=== PATIENT | male | born 1940 | race Caucasian/White ===

== ENCOUNTER → 2020-04-27 | Outpatient (BNVA) | payer MEDICARE, SELFPAY | PROVIDERS: PCP Internal Medicine; Visit Provider Hospitalist | DX: J84.9 Interstitial pulmonary disease, unspecified (principal); J96.11 Chronic respiratory failure with hypoxia; E03.9 Hypothyroidism, unspecified | CPT/HCPCS: 94618; 99212 ==

== ENCOUNTER → 2020-06-28 14:03 | Outpatient (BNVA) | payer MEDICARE, SELFPAY | PROVIDERS: PCP Internal Medicine; Visit Provider Hospitalist | DX: J84.9 Interstitial pulmonary disease, unspecified (principal); J96.11 Chronic respiratory failure with hypoxia; J84.112 Idiopathic pulmonary fibrosis | CPT/HCPCS: 99212 ==

== ENCOUNTER → 2020-08-26 14:07 | Outpatient (BNVA) | payer MEDICARE, SELFPAY | PROVIDERS: PCP Internal Medicine; Visit Provider Hospitalist | DX: J84.9 Interstitial pulmonary disease, unspecified (principal); J84.112 Idiopathic pulmonary fibrosis; J96.11 Chronic respiratory failure with hypoxia | CPT/HCPCS: 99212 ==

== ENCOUNTER 2020-09-27 12:52 | Outpatient (REF) | payer MEDICARE, SELFPAY ==
--- NOTE | ~2020-09-27 | CT_ITS ---
EXAMINATION: CT CHEST WITHOUT CONTRAST CLINICAL INFORMATION: 8 hepatic pulmonary fibrosis COMPARISON: Previous chest CT scans August and December 2019 TECHNIQUE: Multidetector volumetric CT imaging of the chest was done. Axial MIP volume rendering provided. Sagittal and coronal reformatted images were obtained. This CT examination was performed using dose optimization techniques as appropriate, variously including the following: *Automated exposure control *Adjustment of mA and/or kV according to patient size (this includes techniques or standardized protocols for targeted exams where dose is matched to indication/reason for exam; i.e. extremities or head) *Use of iterative reconstruction technique DLP: 298 mGy-cm FINDINGS: INSTRUCTOR BUSINESS EDUCATION: Low lung volumes and increased interstitial markings LUNGS: The lung volumes are low. There is evidence of interstitial lung disease with increased reticulation, interlobular septal thickening, increased parenchymal attenuation and traction bronchiolectasis. This is seen both centrally and peripherally and diffusely throughout the lungs. This does not appear appreciably changed from previous exams. No honeycombing is seen. No pulmonary nodule is seen. MEDIASTINUM: There are small mediastinal lymph nodes that are stable. The heart is upper normal in size. There is mild coronary artery calcification. The thoracic aorta is normal in caliber. The pulmonary arteries are prominent, main pulmonary artery measuring 3.2 cm. There is no pericardial effusion. PLEURA: There is no pleural effusion. No pleural mass or thickening. AXILLA: No lymphadenopathy. UPPER ABDOMEN: The gallbladder has been removed. OSSEOUS STRUCTURES: There are degenerative changes of the spine. CT/CT chest wo con IMPRESSION: No change in interstitial lung disease from previous exams. Coronary artery calcification. Stable small mediastinal lymph nodes. Prominent pulmonary arteries.
== END 2020-09-27 12:53 | disposition home or self-care (01) ==
LOC: HO.CT 12:52
PROVIDERS: Visit Provider Hospitalist
DX: J84.112 Idiopathic pulmonary fibrosis (principal); J96.11 Chronic respiratory failure with hypoxia; J84.9 Interstitial pulmonary disease, unspecified
CPT/HCPCS: 71250

== ENCOUNTER 2020-10-18 15:04 | Outpatient (REF) | payer MEDICARE, SELFPAY ==
[2020-10-18 15:36] LABS: PLT CLUMP 1; SCAN SMEAR FLAG 1
[2020-10-18 15:38] LABS: Basophils Percent Auto 0.1 % (0-2); Eosinophils Percent Auto 0.2 % (0-4); Hematocrit 44.6 % (42-52); Hemoglobin 14.7 g/dl (14.0-18.0); Imm Gran Abs Auto 0.09 X10*3/uL (0.00-0.03); Imm Gran Pct Auto 0.9 % (0.0-0.4); Lymphocytes Absolute Auto 0.9 X10*3/uL (1.2-4.9); Mean Corpuscular Hemoglobin 31.1 pg (27.0-33.0); Mean Corpuscular Volume 94.3 fL (80-98); Mean Platelet Volume 8.9 fL (9.4-12.4); Monocytes Absolute Auto 0.6 X10*3/uL (0.1-1.2); Monocytes Percent Auto 6.1 % (2-11); Neutrophils Absolute Auto 8.4 X10*3/uL (2.0-8.3); Neutrophils Percent Auto 83.7 % (45-73); Platelet Count 157 X10*3/uL (160-400); Red Blood Count 4.73 X10*6/uL (4.60-5.80)
[2020-10-18 15:42] LABS: MANUAL DIFF FLAG NO
[2020-10-18 16:11] LABS: Alanine Aminotransferase 42 U/L (0-40); Alkaline Phosphatase 80 U/L (39-117); Anion Gap 11 (12-20); Aspartate Amino Transferase 16 U/L (5-37); Bilirubin Direct 0.3 mg/dL (0.0-0.5); Bilirubin Total 0.9 mg/dL (0.0-1.0); Blood Urea Nitrogen 20 mg/dL (9-16); Calcium 9.3 mg/dL (8.4-10.2); Carbon Dioxide 29 mmol/L (22-29); Chloride 103 mmol/L (96-108); Estimated Glomerular Filt Rate > 60; Glucose Random 115 mg/dL (60-115); Potassium 4.3 mmol/L (3.3-5.1); Sodium 139 mmol/L (135-145); Total Protein 6.5 g/dL (6.5-8.0)
[2020-10-18 17:51] LABS: Erythrocyte Sedimentation Rate 5 MM/HR (0-15)
== END 2020-10-18 15:05 | disposition home or self-care (01) ==
LOC: HO.LAB 15:04
PROVIDERS: PCP Internal Medicine; Visit Provider Hospitalist
DX: J84.112 Idiopathic pulmonary fibrosis (principal); J96.11 Chronic respiratory failure with hypoxia; J84.9 Interstitial pulmonary disease, unspecified
CPT/HCPCS: 36415; 80048; 80076; 85025; 85652

== ENCOUNTER → 2020-10-28 13:32 | Outpatient (BNVA) | payer MEDICARE, SELFPAY | PROVIDERS: PCP Internal Medicine; Visit Provider Hospitalist | DX: J84.112 Idiopathic pulmonary fibrosis (principal); J96.11 Chronic respiratory failure with hypoxia; J84.9 Interstitial pulmonary disease, unspecified | CPT/HCPCS: 99212 ==

== ENCOUNTER → 2021-01-04 15:25 | Outpatient (BNVA) | payer MEDICARE, SELFPAY | PROVIDERS: PCP Internal Medicine; Visit Provider Hospitalist | DX: J06.9 Acute upper respiratory infection, unspecified (principal); J84.112 Idiopathic pulmonary fibrosis; J96.10 Chronic respiratory failure, unspecified whether with hypoxia or hypercapnia; J84.9 Interstitial pulmonary disease, unspecified; D84.821 Immunodeficiency due to drugs; T38.0X5A Adverse effect of glucocorticoids and synthetic analogues, initial encounter; Y92.9 Unspecified place or not applicable; I10 Essential (primary) hypertension; E03.9 Hypothyroidism, unspecified; Z88.1 Allergy status to other antibiotic agents; Z88.5 Allergy status to narcotic agent; Z88.0 Allergy status to penicillin; Z79.52 Long term (current) use of systemic steroids; Z79.899 Other long term (current) drug therapy | CPT/HCPCS: 99212 ==

== ENCOUNTER 2021-02-01 14:19 | Outpatient (REF) | payer MEDICARE, SELFPAY ==
[2021-02-01 15:22] LABS: MANUAL DIFF FLAG NO
[2021-02-01 15:36] LABS: Basophils Percent Auto 0.1 % (0-2); Eosinophils Percent Auto 0.3 % (0-4); Hematocrit 39.5 % (42-52); Hemoglobin 13.1 g/dl (14.0-18.0); Imm Gran Abs Auto 0.05 X10*3/uL (0.00-0.03); Imm Gran Pct Auto 0.7 % (0.0-0.4); Lymphocytes Absolute Auto 0.8 X10*3/uL (1.2-4.9); Lymphocytes Percent Auto 10.6 % (20-40); Mean Corpuscular HGB Conc 33.2 g/dl (31.0-36.0); Mean Corpuscular Hemoglobin 32.1 pg (27.0-33.0); Mean Corpuscular Volume 96.8 fL (80-98); Mean Platelet Volume 9.1 fL (9.4-12.4); Monocytes Absolute Auto 0.5 X10*3/uL (0.1-1.2); Monocytes Percent Auto 6.9 % (2-11); Neutrophils Absolute Auto 6.1 X10*3/uL (2.0-8.3); Neutrophils Percent Auto 81.4 % (45-73); Platelet Count 150 X10*3/uL (160-400); Red Blood Count 4.08 X10*6/uL (4.60-5.80); Red Cell Distribution Width 14.6 % (11.0-16.0); White Blood Count 7.5 X10*3/uL (4.8-10.8)
[2021-02-01 16:09] LABS: Alanine Aminotransferase 39 U/L (0-40); Albumin Level 4.1 g/dL (3.5-5.0); Alkaline Phosphatase 61 U/L (39-117); Anion Gap 16 (12-20); Aspartate Amino Transferase 21 U/L (5-37); Bilirubin Direct 0.4 mg/dL (0.0-0.5); Bilirubin Total 0.8 mg/dL (0.0-1.0); Blood Urea Nitrogen 12 mg/dL (9-16); Calcium 9.1 mg/dL (8.4-10.2); Carbon Dioxide 24 mmol/L (22-29); Chloride 104 mmol/L (96-108); Estimated Glomerular Filt Rate > 60; Glucose Random 105 mg/dL (60-115); Potassium 4.2 mmol/L (3.3-5.1); Sodium 140 mmol/L (135-145); Total Protein 6.4 g/dL (6.5-8.0)
[2021-02-01 16:32] LABS: Erythrocyte Sedimentation Rate 7 MM/HR (0-15)
[2021-02-02 04:35] LABS: SARS COV2 IgG Negative (Negative)
== END 2021-02-01 14:20 | disposition home or self-care (01) ==
LOC: HO.LAB 14:19
PROVIDERS: PCP Internal Medicine; Visit Provider Hospitalist
DX: Z20.822 Contact with and (suspected) exposure to COVID-19 (principal); D84.821 Immunodeficiency due to drugs; J84.112 Idiopathic pulmonary fibrosis; J84.9 Interstitial pulmonary disease, unspecified; J96.11 Chronic respiratory failure with hypoxia; T38.0X5A Adverse effect of glucocorticoids and synthetic analogues, initial encounter; Z79.52 Long term (current) use of systemic steroids
CPT/HCPCS: 36415; 80048; 80076; 85025; 85652; 86769

== ENCOUNTER → 2021-02-03 14:30 | Outpatient (BNVA) | payer MEDICARE, SELFPAY | PROVIDERS: PCP Internal Medicine; Visit Provider Internal Medicine | DX: J84.112 Idiopathic pulmonary fibrosis (principal); J84.9 Interstitial pulmonary disease, unspecified; D84.821 Immunodeficiency due to drugs; T38.0X5A Adverse effect of glucocorticoids and synthetic analogues, initial encounter; J96.11 Chronic respiratory failure with hypoxia; Z79.52 Long term (current) use of systemic steroids | CPT/HCPCS: 99212 ==

== ENCOUNTER 2021-02-11 14:26 | Outpatient (REF) | payer MEDICARE, SELFPAY | END 2021-02-11 14:27 | disposition home or self-care (01) | LOC: HO.LAB 14:26 | PROVIDERS: PCP Internal Medicine; Visit Provider Hospitalist | DX: Z01.84 Encounter for antibody response examination (principal); D84.821 Immunodeficiency due to drugs; J84.9 Interstitial pulmonary disease, unspecified; T38.0X5A Adverse effect of glucocorticoids and synthetic analogues, initial encounter; Z79.52 Long term (current) use of systemic steroids | CPT/HCPCS: 36415; 86769 ==

== ENCOUNTER 2021-03-28 15:37 | Outpatient (REF) | payer MEDICARE, SELFPAY ==
--- NOTE | ~2021-03-28 | XR_ITS ---
EXAMINATION: XR CHEST CLINICAL INFORMATION: Interstitial pulmonary disease COMPARISON: Previous chest CT scans most recent August 2020 TECHNIQUE: 2 views of the chest were obtained. FINDINGS: The cardiac silhouette appears enlarged but stable. Hilar and mediastinal contours are unremarkable. The lung volumes are low. There are increased interstitial markings suggestive of interstitial lung disease, greatest in the right upper lung and left lower lung. Appears unchanged. There is question of a 9 mm right upper lobe nodule and adjacent pleural thickening. This is similar to topogram from chest CT scan. Review of chest CT shows no nodule is seen and apparent nodular density may represent overlapping areas of increased peripheral parenchymal attenuation. There is no pleural effusion or pneumothorax. There are degenerative changes of the spine. XR/XR chest 2V IMPRESSION: Low lung volumes and interstitial lung disease. This does not appear changed from most recent chest CT August 2020.
== END 2021-03-28 15:38 | disposition home or self-care (01) ==
LOC: HO.XRAY 15:37
PROVIDERS: PCP Internal Medicine; Visit Provider Hospitalist
DX: J84.9 Interstitial pulmonary disease, unspecified (principal)
CPT/HCPCS: 71046

== ENCOUNTER → 2021-03-29 13:08 | Outpatient (BNVA) | payer MEDICARE, SELFPAY | PROVIDERS: PCP Internal Medicine; Visit Provider Hospitalist | DX: J84.9 Interstitial pulmonary disease, unspecified (principal); J84.112 Idiopathic pulmonary fibrosis; J96.11 Chronic respiratory failure with hypoxia; D84.821 Immunodeficiency due to drugs; T38.0X5A Adverse effect of glucocorticoids and synthetic analogues, initial encounter; Z79.52 Long term (current) use of systemic steroids | CPT/HCPCS: 99212 ==

== ENCOUNTER → 2021-04-26 13:56 | Outpatient (BNVA) | payer MEDICARE, SELFPAY | PROVIDERS: PCP Internal Medicine; Visit Provider Hospitalist | DX: J84.9 Interstitial pulmonary disease, unspecified (principal); J84.112 Idiopathic pulmonary fibrosis; J96.10 Chronic respiratory failure, unspecified whether with hypoxia or hypercapnia; I48.91 Unspecified atrial fibrillation; I10 Essential (primary) hypertension; E03.9 Hypothyroidism, unspecified; R53.83 Other fatigue; G47.33 Obstructive sleep apnea (adult) (pediatric); D84.821 Immunodeficiency due to drugs; T38.0X5A Adverse effect of glucocorticoids and synthetic analogues, initial encounter; Z88.6 Allergy status to analgesic agent; Z88.1 Allergy status to other antibiotic agents; Z88.0 Allergy status to penicillin | CPT/HCPCS: 99212 ==

== ENCOUNTER → 2021-07-03 19:35 | Outpatient (REF) | payer MEDICARE, SELFPAY | LOC: HO.SL 19:35 | PROVIDERS: Visit Provider Hospitalist | DX: G47.33 Obstructive sleep apnea (adult) (pediatric) (principal); I48.91 Unspecified atrial fibrillation | CPT/HCPCS: 95810 ==

== ENCOUNTER 2021-07-04 13:56 | Outpatient (REF) | payer MEDICARE, SELFPAY ==
[2021-07-04 15:04] LABS: MANUAL DIFF FLAG NO
[2021-07-04 15:11] LABS: Basophils Percent Auto 0.2 % (0-2); Eosinophils Absolute Auto 0.1 X10*3/uL (0.0-0.4); Eosinophils Percent Auto 0.8 % (0-4); Hemoglobin 14.4 g/dl (14.0-18.0); Imm Gran Abs Auto 0.05 X10*3/uL (0.00-0.03); Imm Gran Pct Auto 0.5 % (0.0-0.4); Lymphocytes Absolute Auto 1.9 X10*3/uL (1.2-4.9); Lymphocytes Percent Auto 17.7 % (20-40); Mean Corpuscular HGB Conc 33.5 g/dl (31.0-36.0); Mean Corpuscular Hemoglobin 31.6 pg (27.0-33.0); Mean Corpuscular Volume 94.3 fL (80.0-98.0); Mean Platelet Volume 9.1 fL (9.4-12.4); Monocytes Absolute Auto 0.9 X10*3/uL (0.1-1.2); Monocytes Percent Auto 8.1 % (2-11); Neutrophils Absolute Auto 7.9 x10*3/uL (2.0-8.3); Neutrophils Percent Auto 72.7 % (45-73); Platelet Count 174 X10*3/uL (160-400); Red Blood Count 4.56 X10*6/uL (4.60-5.80); White Blood Count 10.9 X10*3/uL (4.8-10.8)
[2021-07-04 15:30] LABS: Alanine Aminotransferase 38 U/L (0-40); Albumin Level 4.1 g/dL (3.5-5.0); Alkaline Phosphatase 65 U/L (39-117); Anion Gap 11 (12-20); Aspartate Amino Transferase 20 U/L (5-37); Bilirubin Direct 0.4 mg/dL (0.0-0.5); Bilirubin Total 0.6 mg/dL (0.0-1.0); Blood Urea Nitrogen 15 mg/dL (9-16); Calcium 9.5 mg/dL (8.4-10.2); Carbon Dioxide 32 mmol/L (22-29); Chloride 103 mmol/L (96-108); Estimated Glomerular Filt Rate > 60; Glucose Random 103 mg/dL (60-115); Potassium 3.6 mmol/L (3.3-5.1); Sodium 142 mmol/L (135-145); Total Protein 6.7 g/dL (6.5-8.0)
[2021-07-04 17:18] LABS: Erythrocyte Sedimentation Rate 8 MM/HR (0-15)
[2021-07-05 05:00] LABS: SARS-COV-2 IgG Spike, Semi-Qnt >150.00 index (<1.00)
== END 2021-07-04 13:57 | disposition home or self-care (01) ==
LOC: HO.LAB 13:56
PROVIDERS: PCP Internal Medicine; Visit Provider Hospitalist
DX: J96.11 Chronic respiratory failure with hypoxia (principal); J84.9 Interstitial pulmonary disease, unspecified; J84.112 Idiopathic pulmonary fibrosis; I48.91 Unspecified atrial fibrillation; G47.33 Obstructive sleep apnea (adult) (pediatric); D84.821 Immunodeficiency due to drugs; T38.0X5A Adverse effect of glucocorticoids and synthetic analogues, initial encounter; Z79.52 Long term (current) use of systemic steroids; Z01.84 Encounter for antibody response examination
CPT/HCPCS: 36415; 80048; 80076; 85025; 85652; 86769; 99212

== ENCOUNTER → 2021-08-12 10:16 | Outpatient (BNVA) | payer MEDICARE, SELFPAY | PROVIDERS: PCP Internal Medicine; Visit Provider Hospitalist | DX: J84.112 Idiopathic pulmonary fibrosis (principal); J96.11 Chronic respiratory failure with hypoxia; J84.9 Interstitial pulmonary disease, unspecified; G47.33 Obstructive sleep apnea (adult) (pediatric); G47.61 Periodic limb movement disorder; D84.821 Immunodeficiency due to drugs; T38.0X5D Adverse effect of glucocorticoids and synthetic analogues, subsequent encounter; Z79.52 Long term (current) use of systemic steroids | CPT/HCPCS: 99212 ==

== ENCOUNTER → 2021-10-11 14:10 | Outpatient (BNVA) | payer MEDICARE, SELFPAY | PROVIDERS: PCP Internal Medicine; Visit Provider Hospitalist | DX: J44.9 Chronic obstructive pulmonary disease, unspecified (principal); J84.9 Interstitial pulmonary disease, unspecified | CPT/HCPCS: 94618; 99211 ==

== ENCOUNTER 2021-10-12 11:22 | Outpatient (REF) | payer MEDICARE, SELFPAY ==
--- NOTE | ~2021-10-12 | XR_ITS ---
EXAMINATION: XR CHEST CLINICAL INFORMATION: Pulmonary fibrosis COMPARISON: Previous chest x-rays most recent March 2021 TECHNIQUE: 2 views of the chest were obtained. FINDINGS: The cardiac silhouette is slightly enlarged but stable. Hilar and mediastinal contours are unremarkable. The lung volumes are low. There are increased interstitial markings greatest at the left lung base and right upper lung. This does not appear appreciably changed from most recent exam March 2021. There is no pleural effusion or pneumothorax. There are degenerative changes of the spine. XR/XR chest 2V IMPRESSION: Stable enlargement of the cardiac silhouette. Low lung volumes and interstitial lung disease not appreciably changed.
== END 2021-10-12 11:23 | disposition home or self-care (01) ==
LOC: HO.XRAY 11:22
PROVIDERS: PCP Internal Medicine; Visit Provider Hospitalist
DX: J84.112 Idiopathic pulmonary fibrosis (principal)
CPT/HCPCS: 71046

== ENCOUNTER 2021-12-06 14:04 | Outpatient (REF) | payer MEDICARE, SELFPAY ==
--- NOTE | ~2021-12-06 | XR_ITS ---
EXAMINATION: XR CHEST CLINICAL INFORMATION: Idiopathic pulmonary fibrosis. COMPARISON: Chest x-ray 10/12/2021 TECHNIQUE: 2 views of the chest were obtained. FINDINGS: The lungs are hypoexpanded with increased interstitial markings and left lower lobe and right upper lobe similar previous study. No new lung findings. Heart size is borderline enlarged. Pulmonary vascularity is normal.. XR/XR chest 2V IMPRESSION: Stable findings with no change in prominent interstitial lung disease right upper lobe and left lower lobe.
== END 2021-12-06 14:05 | disposition home or self-care (01) ==
LOC: HO.XRAY 14:04
PROVIDERS: PCP Internal Medicine; Visit Provider Hospitalist
DX: J84.112 Idiopathic pulmonary fibrosis (principal); I10 Essential (primary) hypertension; G47.61 Periodic limb movement disorder; D84.821 Immunodeficiency due to drugs; J96.11 Chronic respiratory failure with hypoxia; J84.9 Interstitial pulmonary disease, unspecified; G47.33 Obstructive sleep apnea (adult) (pediatric); T38.0X5A Adverse effect of glucocorticoids and synthetic analogues, initial encounter; Z79.52 Long term (current) use of systemic steroids
CPT/HCPCS: 71046; 99212

== ENCOUNTER → 2022-02-28 11:35 | Outpatient (BNVA) | payer MEDICARE, SELFPAY | PROVIDERS: PCP Internal Medicine; Visit Provider Hospitalist | DX: J44.0 Chronic obstructive pulmonary disease with (acute) lower respiratory infection (principal); D84.821 Immunodeficiency due to drugs; T38.0X5A Adverse effect of glucocorticoids and synthetic analogues, initial encounter; Z79.52 Long term (current) use of systemic steroids; J84.112 Idiopathic pulmonary fibrosis; J96.11 Chronic respiratory failure with hypoxia; J84.9 Interstitial pulmonary disease, unspecified; G47.33 Obstructive sleep apnea (adult) (pediatric); G47.61 Periodic limb movement disorder; I10 Essential (primary) hypertension; Z57.2 Occupational exposure to dust; Z99.81 Dependence on supplemental oxygen; Z79.899 Other long term (current) drug therapy | CPT/HCPCS: 99212 ==

== ENCOUNTER → 2022-06-13 13:39 | Outpatient (BNVA) | payer MEDICARE, SELFPAY | PROVIDERS: PCP Internal Medicine; Visit Provider Hospitalist | DX: Z01.811 Encounter for preprocedural respiratory examination (principal); J44.0 Chronic obstructive pulmonary disease with (acute) lower respiratory infection; J84.112 Idiopathic pulmonary fibrosis; J96.11 Chronic respiratory failure with hypoxia; D84.821 Immunodeficiency due to drugs; T38.0X5A Adverse effect of glucocorticoids and synthetic analogues, initial encounter; Z79.52 Long term (current) use of systemic steroids; G47.33 Obstructive sleep apnea (adult) (pediatric); G47.61 Periodic limb movement disorder; G47.00 Insomnia, unspecified; F32.A Depression, unspecified; Z99.81 Dependence on supplemental oxygen | CPT/HCPCS: 99212 ==

== ENCOUNTER → 2022-09-12 14:02 | Outpatient (BNVA) | payer MEDICARE, SELFPAY | PROVIDERS: PCP Internal Medicine; Visit Provider Hospitalist | DX: J44.1 Chronic obstructive pulmonary disease with (acute) exacerbation (principal); J96.11 Chronic respiratory failure with hypoxia; J84.9 Interstitial pulmonary disease, unspecified; D84.821 Immunodeficiency due to drugs; T38.0X5A Adverse effect of glucocorticoids and synthetic analogues, initial encounter; J84.112 Idiopathic pulmonary fibrosis; G47.33 Obstructive sleep apnea (adult) (pediatric); G47.61 Periodic limb movement disorder; G47.00 Insomnia, unspecified; M54.9 Dorsalgia, unspecified | CPT/HCPCS: 99212 ==

== ENCOUNTER → 2022-11-14 14:24 | Outpatient (BNVA) | payer MEDICARE, SELFPAY | PROVIDERS: PCP Internal Medicine; Visit Provider Hospitalist | DX: J44.1 Chronic obstructive pulmonary disease with (acute) exacerbation (principal); J84.112 Idiopathic pulmonary fibrosis; J96.11 Chronic respiratory failure with hypoxia; J84.9 Interstitial pulmonary disease, unspecified; G47.33 Obstructive sleep apnea (adult) (pediatric); G47.61 Periodic limb movement disorder; G47.00 Insomnia, unspecified; M54.9 Dorsalgia, unspecified; D84.821 Immunodeficiency due to drugs; T38.0X5D Adverse effect of glucocorticoids and synthetic analogues, subsequent encounter; Z79.52 Long term (current) use of systemic steroids | CPT/HCPCS: 99212 ==

== ENCOUNTER 2023-03-02 10:59 | Outpatient (AMB) | payer MEDICARE, SELFPAY ==
--- NOTE | 2023-03-02 11:22 | A.OFFVIS_ITS ---
Intake Vital Signs 03/02/23 11:25 Height 6 ft 2 in BP 118/62 Blood Pressure Location Lt brachial Position Sitting Pulse 96 Pulse Oximetry (%) 93 Oxygen Delivery Method Nasal Cannula Comment 2 Liters O2 Intake Visit Reasons: dyspnea Professor Of Biostatistics Required: No Expanding Machine Operator: Expanding Machine Operator offered & declined Accompanied by: Son Allergies Cipro Allergy (Mild, Uncoded 03/02/23 11:29) Tachycardia PCN Allergy (Mild, Uncoded 03/02/23 11:29) Hives Percocet Allergy (Mild, Uncoded 03/02/23 11:29) Hallucinations Medication List - Last Reconciled 03/02/23 by Ya Mauor LPN albuterol sulfate 2.5 mg (3 mL) inhalation BID apixaban (Eliquis) 5 mg PO BID azithromycin 500 mg PO DAILY 5 days carisoprodol 350 mg PO QID PRN diltiazem HCl ER mg PO doxycycline monohydrate 100 mg PO BID PRN doxycycline monohydrate 100 mg PO BID 14 days furosemide (Lasix) 20 mg PO DAILY 7 days gabapentin 200 mg PO BEDTIME PRN ipratropium bromide 2.5 mL inhalation BID 30 days levalbuterol HCl 1.25 mg (3 mL) inhalation BID 30 days levothyroxine 50 mcg PO DAILY lisinopril 5 mg PO DAILY metoprolol succinate ER 25 mg PO DAILY mirtazapine (Remeron) 15 mg PO BEDTIME 30 days montelukast 10 mg PO QPM mycophenolate mofetil 1,000 mg (2 x 500 mg) PO BID nebulizers As directed nintedanib (Ofev) 150 mg PO Q12H oxycodone 5 mg PO QID PRN prednisone 20 mg (2 x 10 mg) PO DAILY tamsulosin 0.4 mg PO BEDTIME trazodone 100 mg (2 x 50 mg) PO BEDTIME HPI dyspnea HPI Details Isai is a very pleasant 82 year old male followed for COPD on 3 liters supplemental oxygen, idiopathic pulmonary fibrosis, and 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 Today he presents for an acute visit. He reports increased dyspnea on exertion over the last 4-6 weeks with associated bilateral lower extremity swelling. He has been using nebulized therapy once per day with partial effect. He states he has been taking his lasix regularly and had a recent echo approximately 3 months ago. [facility] Medical History (Updated 09/12/22 @ 22:37 by Irvin Watts MD) Atrial fibrillation Back pain Chronic respiratory failure COPD (chronic obstructive pulmonary disease) Depression ILD (interstitial lung disease) Immunosuppression due to chronic steroid use Insomnia IPF (idiopathic pulmonary fibrosis) PLMD (periodic limb movement disorder) Social History (Updated 03/02/23 @ 11:36 by Ya Mauro LPN) Patient Tobacco Use Status: Never used Tobacco Smoked in Last 30 Days: No Review of Systems Const Denies chills, Denies excessive sweating, Denies fever(s), Denies headache(s) and Denies night sweats Eyes Denies dry eyes, Denies irritation and Denies itchy eyes ENT Reports Normal hearing present, Denies headache(s), Denies nasal congestion, Denies nasal discharge, Denies post nasal drip and Denies sore throat Card Denies chest pain, Denies chest pain at rest, Denies chest pain with activity, Denies claudication, Reports leg edema and Reports dyspnea on exertion Resp Denies change in phlegm color, Denies chest congestion, Reports cough, Denies hemoptysis, Denies excessive phlegm production, Denies pain on inspiration, Denies pain with cough, Reports dyspnea on exertion, Denies stridor and Denies wheezing Musc Denies myalgias Neuro Reports Normal hearing present and Denies headache(s) Endo Denies excessive sweating Devendra/Lymph Denies lymphadenopathy Aller/Immun Denies itchy eyes, Denies seasonal rhinorrhea and Denies wheezing Physical Exam Vital Signs: Last Vital Signs Pulse 96 03/02/23 11:25 BP 118/62 03/02/23 11:25 Pulse Ox 93 03/02/23 11:25 Oxygen Delivery Method Nasal Cannula 03/02/23 11:25 Const General: cooperative, comfortable, no acute distress, well developed and alert Nutritional Appearance: obese Orientation/consciousness: patient oriented x3 HEENT Head: Yes normal to inspection, Yes normocephalic and Yes atraumatic Ears: hearing grossly normal bilaterally and external ears normal Eyes General: appearance normal, both eyes and all related structures Eyelids: Yes eyelids normal Sclerae: sclerae normal EOM: EOMs intact bilaterally Neck Neck: Yes normal visual inspection and Yes no lymphadenopathy Lymphatic: no lymphadenopathy noted Chest Chest palpation & inspection: normal inspection of the chest Resp Other: inspiratory crackles d/t fibrosis Effort & Inspection: normal respiratory effort, able to speak in complete sentences, no audible wheezes, no stridor, not tachypneic, no tripod positioning and no use of accessory muscles Auscultation: diminished lung sounds Cardio Jugular venous distension: no JVD Rate: regular rate Rhythm: regular rhythm Skin Other: warm, dry General skin exam: no rashes or lesions noted Neuro General: patient oriented x3 Cranial nerves: Yes Normal hearing present Cognition (Neuro): normal cognition Gait exam (Neuro): Assisted gait required Extrem Other: 2-3+ pitting edema BLE General: Yes normal to inspection Psych Appearance: grossly normal and well kempt Speech and movement: Normal speech and movement present and Clear speech present Affect: normal affect Attitude: cooperative Thought process: Normal thought process present Thought content: Normal thought content present Insight: Good insight present (Psych) Judgement: Good judgement present (Psych) Assessment & Plan Assessment & Plan (1) COPD (chronic obstructive pulmonary disease): Code(s): J44.9 - Chronic obstructive pulmonary disease, unspecified Qualifiers: COPD type: COPD with acute exacerbation Qualified Code(s): J44.1 - Chronic obstructive pulmonary disease with (acute) exacerbation (2) Immunosuppression due to chronic steroid use: Code(s): D84.821 - Immunodeficiency due to drugs; T38.0X5A - Adverse effect of glucocorticoids and synthetic analogues, initial encounter; Z79.52 - intermediate manager (current) use of systemic steroids (3) IPF (idiopathic pulmonary fibrosis): Code(s): J84.112 - Idiopathic pulmonary fibrosis (4) Chronic respiratory failure: Code(s): J96.10 - Chronic respiratory failure, unspecified whether with hypoxia or hypercapnia Qualifiers: Respiratory failure complication: hypoxia Qualified Code(s): J96.11 - Chronic respiratory failure with hypoxia (5) KATHARINE (obstructive sleep apnea): Code(s): G47.33 - Obstructive sleep apnea (adult) (pediatric) Plan Isai's symptoms are likely multifactorial with contribution from pulmonary and cardiac etiologies. It is difficult to discern if his fibrosis is worsening so will send for chest CT as his last was two years ago. Discussed his current medication regimen. Advised to used nebulized therapy BID, as long as he tolerates. He also has 2-3+ pitting edema of bilateral lower extremities that has been more noticeable over the last few weeks, with likely CHF exacerbation contributing to symptoms. Suggested patient increase his lasix to BID for the next week to see if his symptoms improve and contact cardiology to discuss. All questions were answered and patient in agreement of plan. Will follow up with Dr. Watts in two weeks for regularly scheduled appointment. Orders: Orders CT chest wo IV con Today J84.9 - Interstitial pulmonary disease, unspecified Coding Level of Care Code Est Pt Level 4 (92599) Diagnoses COPD (chronic obstructive pulmonary disease) J44.1 COPD type: COPD with acute exacerbation Immunosuppression due to chronic steroid use D84.821; T38.0X5A; Z79.52 IPF (idiopathic pulmonary fibrosis) J84.112 Chronic respiratory failure J96.11 Respiratory failure complication: hypoxia KATHARINE (obstructive sleep apnea) G47.33
[2023-03-02 11:25] VITALS: BP 118/62; PULSE 96; O2SAT 93
== END 2023-03-02 12:03 | disposition home or self-care (01) ==
PROVIDERS: PCP Internal Medicine; Visit Provider Nurse Practitioner Family
DX: J44.1 Chronic obstructive pulmonary disease with (acute) exacerbation (principal); D84.821 Immunodeficiency due to drugs; T38.0X5A Adverse effect of glucocorticoids and synthetic analogues, initial encounter; Z79.52 Long term (current) use of systemic steroids; J84.112 Idiopathic pulmonary fibrosis; J96.11 Chronic respiratory failure with hypoxia; G47.33 Obstructive sleep apnea (adult) (pediatric)
CPT/HCPCS: 99214

== ENCOUNTER → 2023-03-02 10:59 | Outpatient (BNVA) | payer MEDICARE, SELFPAY | PROVIDERS: PCP Internal Medicine; Visit Provider Nurse Practitioner Family | DX: J44.1 Chronic obstructive pulmonary disease with (acute) exacerbation (principal); J84.112 Idiopathic pulmonary fibrosis; J96.11 Chronic respiratory failure with hypoxia; G47.33 Obstructive sleep apnea (adult) (pediatric); D84.821 Immunodeficiency due to drugs; T38.0X5D Adverse effect of glucocorticoids and synthetic analogues, subsequent encounter; Z99.81 Dependence on supplemental oxygen; Z79.52 Long term (current) use of systemic steroids | CPT/HCPCS: 99212 ==

== ENCOUNTER 2023-03-20 13:52 | Outpatient (AMB) | payer MEDICARE, SELFPAY ==
[2023-03-20 14:14] VITALS: PULSE 83; O2SAT 94; BMI 30.6
--- NOTE | 2023-03-20 14:14 | A.OFFVIS_ITS ---
Intake Vital Signs 03/20/23 14:14 Height 6 ft 2 in Weight 238 lb BMI 30.6 Pulse 83 Pulse Source Pulse Oximeter Pulse Oximetry (%) 94 Oxygen Delivery Method Room Air Comment 3 Liters Oxygen([facility]) Intake Visit Reasons: copd Allergies Cipro Allergy (Mild, Uncoded 03/20/23 14:15) Tachycardia PCN Allergy (Mild, Uncoded 03/20/23 14:15) Hives Percocet Allergy (Mild, Uncoded 03/20/23 14:15) Hallucinations HPI HPI Comments History of Present Illness Details The patient is a 82-year-old gentleman with a known history high blood pressure in addition to hypothyroidism who apparently was in his usual state health until for the last several months when he has noticed progressive sh ortness of breath. He had been going to a transition move from his house to a condominium and why he was doing that he was exposed to inorganic dust in the form of cement. In addition to that he worked at [employer] for about 20 years of his life and prior to that he worked that [employer] with significant exposures well and she could be. Ultimately he was not complaining of any respiratory symptoms. More recently with increasing shortness of breath sensation he was evaluated by Cardiology. He had a stress test that was negative for any heart involvement but did have an episode of hypoxia when he dropped to 83%. After that he did get his own oximeter and he has been checking his oxygen and appears to be maintaining around 92-94%. However, he did have a CT scan of the abdomen back in June 2018 for his underlying renal calculi it was noted that he had evidence of pulmonary fibrosis which is concerning. Therefore due to his persistent symptoms and his hypoxia and abnormal CT scan of the abdomen he was referred to Pulmonary. We did review his blood work and was all relatively negative for any evidence of any connective tissue conditions or inflammatory conditions that can result in the interstitial lung disease. He also underwent for CT scan of the chest demonstrating mainly chronic changes with reticular changes and honeycombing as well as some traction bronchiectasis. However, he also has some degree of subacute or acute pneumonitis occurring and his left lower lung zone. Seems to have responded well to the trelegy, I will send him a generic at this time. In the meantime based on the findings demonstrating mainly chronic interstitial changes I am not sure that a surgical biopsy will really oil changer at this time. It is my suspicion that he may have a component of idiopathic pulmonary fibrosis based on the fact that he has peripheral raise reticular changes with some honeycombing primarily at the bases. The area that is less consistent is this like ground-glass area in the left base but this may be a different entity altogether. Therefore treating for idiopathic pulmonary fibrosis will be reasonable at this time. Based on the findings on his CT scan I suspect that he has a component of idiopathic pulmonary fibrosis. Continue the prednisone at low dose for now. Will discuss the use of anti- fibrotic therapy during the next visit. 10/28/2020 The patient is here for a follow up visit. Overall he is doing well. He did develop sciatica and placed on 40mg Prednisone and his breathing did feel better. Therefore, we will keep him on 10mg Prednisone daily. He does tolerate the cellcept. we did review his PFTs demonstrating a moderate restriction unchanged from last year. The CT chest demonstrating the ILD, but more GGO. He has been using his oxygen with good effect. He is tolerating the OFEV well without significant side effects. 01/04/2021 the patient is here for sick visit. He started developing some nasal congestion and worsening cough the last couple weeks. Initially he noted also some increased shortness of breath and his pulse ox was lower than normal. He was using his oxygen more regularly. Denied fevers or chills. He has been coughing more lately. The cough appears to be more productive with clear to white Sputum. He did get vaccinated for COVID-19. However, he is on immunosuppression including CellCept and prednisone. Therefore, will be reasonable to check his response to vaccine by measuring the semi quantitative S protein antibioties. he denies any sick contacts. 07/04/2021 the patient is here for pulmonary follow-up visit. Overall he is doing well. Continues to have daytime drowsiness. His [place] score is elevated 06/24. He did just have the sleep study last night. Therefore I will add an addendum to this note regarding the results. Patient may benefit from PAP therapy in view of his underlying daytime drowsiness. In the meantime he does describe difficulty sleeping therefore will start a sleep aid to see if this provides relief. He continues on the prednisone that can also affect his sleep. He also continues on the mycophenolate. The 0fev has been well tolerated without significant GI symptoms at this time. He did have a problem with his Advair resulting in thrush. Symptoms are feeling better. Therefore he is no longer using it. He does describe some interval worsening of chest congestion. He is concerned about using medications specially with his underlying atrial fibrillation. He is scheduled to follow-up with his cardiolo gist sometime late July or early August. Therefore, will start the patient on nebulized therapy with anticholinergic therapy to minimize beta effect. 08/12/2021 the patient is here for a pulmonary follow-up visit. Overall he is feeling better. He did undergo sleep study demonstrating no significant sleep apnea. although, it was a very limited study he had a hard time sleeping. He slept a total about 3 hours. He did have some REM sleep at the end. This is a sub optimal study. However, does not appear to have any significant sleep apnea based on those 3 hours left. More significant was to his degree of periodic limb movements. Explained to the patient that this was very significant during the study and is likely contributing to his poor sleep.The patient does need to uses oxygen. He is feeling better overall from a daytime drowsiness. His [place] score is better it over 24 was issue reassuring. The patient needs to work on good sleep hygiene in order to improve his overall daytime wakefulness. He continues uses oxygen with good effect. He continues to exercise. I did encourage him to go back to some type of rehabilitation. He can consider online programs. Patient is to monitor closely his weight. He continues on the anti fibrotic agent and also on the immunomodulator therapy with good response at this time. He is scheduled to undergo a cardioversion soon. The patient will be placed on flecainide. I encouraged him and reassured him that this is a good safe medicine. Clinically the patient is doing very well and should be able to tolerate the planned procedure without any pulmonary issues. 06/13/2022 the patient is here for a pulmonary follow-up visit. He is here with his son. Since we last spoke he has been having excruciating back pain. Radiation stone the legs. he did undergo an MRI of the lumbar spine demonstrating significant compression fractures in addition to moderate to severe spinal stenosis. The patient was recommended to follow up with surgery. This has caused him to be depressed. He is also having issues with insomnia. Initially because the back pain he tried gabapentin but it resulted in increased swelling and weight gain so therefore he stopped it. The swelling improved once he stop the medication. I did recommend can try small dose of Remeron. In the meantime continues to be fairly stable from respiratory status. The patient does have a moderate restriction due to his interstitial lung disease. But based on his repeat pulmonary function studies no significant change. He does have moderate restriction with a moderate diffusion impairment as well. The patient does use oxygen with activity. Typically can be okay without oxygen when he is resting. If the patient does need surgery and he likely will he does have increased risk for perioperative pulmonary complications which include for the hypoxia, atelectasis, pneumonia and prolonged mechanical ventilation. At this point the patient is medically optimized from a pulmonary standpoint. I do believe that although the patient may be high risk if this condition is left on treated it can worsen further. Therefore, will follow-up with more surgery and have that further discussion about potential surgical interventions. 09/12/2022 the patient is here for a pulmonary follow-up visit. He is here with his son. His back pain has been getting a little better P which is reassuring. He did follow-up with Neurosurgery and did not recommend surgery and went home because they did not feel that it would provide significant improvement and not worked risk. Therefore his continue with physical therapy and he has had some improvement. He may have to see a pain specialist to see about other alternative therapies for pain control. In the meantime from a respiratory status the patient had been doing well. Continues with his current medications further interstitial lung disease with adequate effect. Recently his was admitted to the hospital with human metapneumovirus and other complications. He is concerned because now he has been exposed to this virus. On examination he does have increased wheezing he has been coughing some. Therefore will go ahead and keep him on the prednisone and also start him on nebulized therapy to see if we can provide some relief. If the patient needs to increase the prednisone he can do so. In also placement antibiotics to avoid a postviral bacterial infection. The patient is also having issues with his atrial fibrillation worse now back with rapid ventricular response to some degree. He is considering cardioversion again. The patient is aware that that is okay once he heals from his ongoing respiratory issue. The patient is aware that he should avoid amiodarone as an antiarrhythmic agent and he can consider other agents. 11/14/2022 the patient is here for a pulmonary follow-up visit. He is grieving the loss of his . He has lost a good amount of weight. He has had some lower extremity edema. He still atrial fibrillation. The patient was being evaluated by Cardiology regarding possibility cardioversion. But 1st, he is going to have a echocardiogram and also more diuresis. He continues on the CellCept with good response. He is also on the Ofev. No significant adverse effects. He is using his respiratory therapy. He had called and we had prescribed some doxycycline for a lower respiratory infection. The patient is getting better although he still having some wheezing. We did provide him ipratropium nebulized solution addition to Xopenex in order for him to provide bronchodilation with less irritation to his cardiac issues. The patient has stopped using it because he was losing his voice. I did request that he can start using it daily because he does have some wheezing on exam. If the patient is no better if she gets worse she is to call the office for further recommendations. 03/20/2023 the patient is here for a pulmonary follow-up visit. Overall he is doing well from a respiratory status. He continues uses oxygen with good effect. He is able to take a break during the daytime. We did talk about maintaining the oxygen between 92 and 96%. Sometimes he less ago a little higher in explained to him that his body does better when he maintains it around the mid 90s. The patient has been continue his anti fibrotic therapy and immunomodulator therapy with good response. His cardiac condition appears to be a more stable. He has back pain also more stable. Now he has a motor wheelchair that does help him move around. He is also participating in some degree of pulmonary rehabilitation which is reassuring. It appears that the pulmonary fibrosis is stable and not significantly progressing. Plan to follow- up in the spring with pulmonary function studies. Also to note he has been using the nebulizer machine. Although he has been noticing some hoarseness and raspiness of his voice. He denies any significant wheezing any longer. Therefore we can just use the breathing treatments as needed. [facility] Medical History (Updated 03/20/23 @ 23:10 by Irvin Watts MD) Back pain Depression Insomnia PLMD (periodic limb movement disorder) COPD (chronic obstructive pulmonary disease) Atrial fibrillation Immunosuppression due to chronic steroid use IPF (idiopathic pulmonary fibrosis) Chronic respiratory failure ILD (interstitial lung disease) Social History (Updated 03/02/23 @ 11:36 by Ya Mauro LPN) Patient Tobacco Use Status: Never used Tobacco Review of Systems Const Reports difficulty sleeping, Denies fever(s) and Denies night sweats ENT Denies change in voice, Denies lip swelling, Denies mouth pain, Reports nasal congestion, Reports nasal discharge and Denies tongue swelling Card Denies chest pain and Reports dyspnea on exertion Resp Denies change in phlegm color, Denies chest congestion, Reports cough, Reports dyspnea on exertion and Denies wheezing GI Denies abdominal pain Musc Reports back pain and Reports radiating pain into limb Neuro Denies Neuro-related abnormal movements and Reports radicular pain Psych Reports as per HPI, Reports anxiety and Reports depression Devendra/Lymph Denies easy bleeding and Denies lymphadenopathy Aller/Immun Denies lip swelling, Denies tongue swelling and Denies wheezing Physical Exam Vital Signs: Last Vital Signs Pulse 83 03/20/23 14:14 Pulse Ox 94 03/20/23 14:14 Oxygen Delivery Method Room Air 03/20/23 14:14 BMI result Body Mass Index 30.6 Const General: alert Neck Neck: Yes normal visual inspection, Yes full ROM and Yes no lymphadenopathy Chest Chest palpation & inspection: normal inspection of the chest Resp Auscultation: rales bilateral at the base, no wheezes and diminished lung sounds Cardio Rate: regular rate Rhythm: regular rhythm Heart sounds: S1 normal heart sound present and S2 normal heart sound present GI Palpation (GI): Soft to palpation and nontender Auscultation: normal bowel sounds Skin General skin exam: rashes and/or lesions noted Assessment & Plan Assessment & Plan (1) COPD (chronic obstructive pulmonary disease): Code(s): J44.9 - Chronic obstructive pulmonary disease, unspecified Qualifiers: COPD type: COPD with acute exacerbation Qualified Code(s): J44.1 - Chronic obstructive pulmonary disease with (acute) exacerbation (2) Immunosuppression due to chronic steroid use: Code(s): D84.821 - Immunodeficiency due to drugs; T38.0X5A - Adverse effect of glucocort icoids and synthetic analogues, initial encounter; Z79.52 - prison (current) use of systemic steroids (3) IPF (idiopathic pulmonary fibrosis): Code(s): J84.112 - Idiopathic pulmonary fibrosis (4) Chronic respiratory failure: Code(s): J96.10 - Chronic respiratory failure, unspecified whether with hypoxia or hyp ercapnia Qualifiers: Respiratory failure complication: hypoxia Qualified Code(s): J96.11 - Chronic respiratory failure with hypoxia (5) ILD (interstitial lung disease): Comment: probable idiopathic pulmonary fibrosis. Currently being treated for the possibility of chronic hyper sensitivity pneumonitis. Appears to have a progressive process Code(s): J84.9 - Interstitial pulmonary disease, unspecified (6) KATHARINE (obstructive sleep apnea): Code(s): G47.33 - Obstructive sleep apnea (adult) (pediatric) (7) PLMD (periodic limb movement disorder): Comment: Based on recent sleep study Code(s): G47.61 - Periodic limb movement disorder (8) Insomnia: Code(s): G47.00 - Insomnia, unspecified Qualifiers: Insomnia type: primary Qualified Code(s): F51.01 - Primary insomnia (9) Back pain: Code(s): M54.9 - Dorsalgia, unspecified Qualifiers: Back pain location: back pain in unspecified location Back pain laterality: unspecified Chronicity: chronic Qualified Code(s): M54.9 - Dorsalgia, unspecified; G89.29 - Other chronic pain Plan Continue prednisone 10 mg daily, increase if no better continue Ipratropium nebs BID, 1-2 times a day as needed continue Xopenex BID as needed NANCY as needed Continue oxygen supplementation continue Mycophenalate continue OFEV Had recommeded Remeron in the past, but now on ropinerole PFTs Follow-up in 4-6 months Orders: Orders PFT pulmonary function test 6 Months J84.112 - Idiopathic pulmonary fibrosis Coding Level of Care Code Est Pt Level 4 (45948) Diagnoses Chronic obstructive pulmonary disease with acute exacerbation J44.1 COPD type: COPD with acute exacerbation Immunosuppression due to chronic steroid use D84.821; T38.0X5A; Z79.52 IPF (idiopathic pulmonary fibrosis) J84.112 Chronic respiratory failure with hypoxia J96.11 Respiratory failure complication: hypoxia ILD (interstitial lung disease) J84.9 KATHARINE (obstructive sleep apnea) G47.33 PLMD (periodic limb movement disorder) G47.61 Primary insomnia F51.01 Insomnia type: primary Chronic back pain, unspecified back location, unspecified back pain laterality M54.9; G89.29 Back pain location: back pain in unspecified location Back pain laterality: unspecified Chronicity: chronic Time Spent (min) 18
== END 2023-03-20 14:24 | disposition home or self-care (01) ==
PROVIDERS: PCP Internal Medicine; Visit Provider Hospitalist
DX: J44.1 Chronic obstructive pulmonary disease with (acute) exacerbation (principal); D84.821 Immunodeficiency due to drugs; T38.0X5A Adverse effect of glucocorticoids and synthetic analogues, initial encounter; Z79.52 Long term (current) use of systemic steroids; J84.112 Idiopathic pulmonary fibrosis; J96.11 Chronic respiratory failure with hypoxia; J84.9 Interstitial pulmonary disease, unspecified; G47.33 Obstructive sleep apnea (adult) (pediatric); G47.61 Periodic limb movement disorder; F51.01 Primary insomnia; M54.9 Dorsalgia, unspecified; G89.29 Other chronic pain
CPT/HCPCS: 99214

== ENCOUNTER → 2023-03-20 13:52 | Outpatient (BNVA) | payer MEDICARE, SELFPAY | PROVIDERS: PCP Internal Medicine; Visit Provider Hospitalist | DX: J44.1 Chronic obstructive pulmonary disease with (acute) exacerbation (principal); J84.112 Idiopathic pulmonary fibrosis; J96.11 Chronic respiratory failure with hypoxia; J84.9 Interstitial pulmonary disease, unspecified; G47.33 Obstructive sleep apnea (adult) (pediatric); G47.61 Periodic limb movement disorder; F51.01 Primary insomnia; M54.9 Dorsalgia, unspecified; G89.29 Other chronic pain; D84.821 Immunodeficiency due to drugs; T38.0X5A Adverse effect of glucocorticoids and synthetic analogues, initial encounter; Z79.52 Long term (current) use of systemic steroids | CPT/HCPCS: 99212 ==

== ENCOUNTER 2023-04-03 08:14 | Outpatient (REF) | payer MEDICARE, SELFPAY | END 2023-04-03 08:15 | disposition home or self-care (01) | LOC: HO.CT 08:14 | PROVIDERS: PCP Internal Medicine; Visit Provider Nurse Practitioner Family | DX: J84.9 Interstitial pulmonary disease, unspecified (principal) | CPT/HCPCS: 71250 ==

== ENCOUNTER 2023-04-25 10:29 | Outpatient (REF) | payer MEDICARE, SELFPAY ==
--- NOTE | ~2023-04-25 | XR_ITS ---
EXAMINATION: XR CHEST CLINICAL INFORMATION: Pleurodynia COMPARISON: Chest radiograph from 12/06/2021. Chest CT from 04/03/2023. TECHNIQUE: 2 views of the chest were obtained. FINDINGS: Lungs are hypoinflated. The diffuse interstitial disease is unchanged compared to recent chest CT from 04/03/2023. No pneumothorax or pleural effusion. There is cardiomegaly. The central pulmonary vessels are chronically enlarged, unchanged compared to 12/06/2021. It would be difficult to exclude any superimposed interstitial edema against the background of chronic fibrotic disease. However, there is no overt edema. There is atherosclerotic calcification of the aorta. No acute abnormalities within the visualized degenerated spine. Again noted is a moderate compression fracture deformity of the L1 vertebral body. XR/XR chest 2V IMPRESSION: * Chronic interstitial lung disease. * No pneumothorax or pleural effusion. No acute cardiopulmonary abnormality compared to the chest CT from 04/03/2023. * Again noted is a moderate compression fracture of the L1 vertebral body.
== END 2023-04-25 10:30 | disposition home or self-care (01) ==
LOC: HO.XRAY 10:29
PROVIDERS: Visit Provider Hospitalist
DX: R07.81 Pleurodynia (principal)
CPT/HCPCS: 71046

== ENCOUNTER 2023-06-12 09:53 | Outpatient (AMB) | payer MEDICARE, SELFPAY ==
--- NOTE | 2023-06-12 10:23 | A.OFFVIS_ITS ---
Intake Vital Signs 06/12/23 10:24 Height 6 ft 2 in Weight 236 lb 5.369 oz BMI 30.3 BP 110/68 Blood Pressure Location Rt brachial Position Sitting Pulse 65 Pulse Source Pulse Oximeter Pulse Oximetry (%) 94 Oxygen Delivery Method Room Air Comment 2 Liters Oxygen([employer]) Intake Visit Reasons: copd Network Analyst Required: No Allergies Cipro Allergy (Mild, Uncoded 06/12/23 10:26) Tachycardia PCN Allergy (Mild, Uncoded 06/12/23 10:26) Hives Percocet Allergy (Mild, Uncoded 06/12/23 10:26) Hallucinations HPI HPI Comments History of Present Illness Details The patient is a 83-year-old gentleman with a known history high blood pressure in addition to hypothyroidism who apparently was in his usual state health until for the last several months when he has noticed progressive shortness of breath. He had been going to a transition move from his house to a condominium and why he was doing that he was exposed to inorganic dust in the form of cement. In addition to that he worked at [employer] for about 20 years of his life and prior to that he worked that [employer] with significant exposures well and she could be. Ultimately he was not complaining of any respiratory symptoms. More recently with increasing shortness of breath sensation he was evaluated by Cardiology. He had a stress test that was negative for any heart involvement but did have an episode of hypoxia when he dropped to 83%. After that he did get his own oximeter and he has been checking his oxygen and appears to be maintaining around 92-94%. However, he did have a CT scan of the abdomen back in June 2018 for his underlying renal calculi it was noted that he had evidence of pulmonary fibrosis which is concerning. Therefore due to his persistent symptoms and his hypoxia and abnormal CT scan of the abdomen he was referred to Pulmonary. We did review his blood work and was all relatively negative for any evidence of any connective tissue conditions or inflammatory conditions that can result in the interstitial lung disease. He also underwent for CT scan of the chest demonstrating mainly chronic changes with reticular changes and honeycombing as well as some traction bronchiectasis. However, he also has some degree of subacute or acute pneumonitis occurring and his left lower lung zone. Seems to have responded well to the trelegy, I will send him a generic at this time. 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 It is my suspicion that he may have a component of idiopathic pulmonary fibrosis based on the fact that he has peripheral raise reticular changes with some honeycombing primarily at the bases. The area that is less consistent is this like ground-glass area in the left base but this may be a different entity altogether. Therefore treating for idiopathic pulmonary fibrosis will be reasonable at this time. Based on the findings on his CT scan I suspect that he has a component of idiopathic pulmonary fibrosis. Continue the prednisone at low dose for now. Will discuss the use of anti- fibrotic therapy during the next visit. 09/12/2022 the patient is here for a pulm onary follow-up visit. He is here with his son. His back pain has been getting a little better P which is reassuring. He did follow-up with Neurosurgery and did not recommend surgery and went home because they did not feel that it would provide significant improvement and not worked risk. Therefore his continue with physical therapy and he has had some improvement. He may have to see a pain specialist to see about other alternative therapies for pain control. In the meantime from a respiratory status the patient had been doing well. Continues with his current medications further interstitial lung disease with adequate effect. Recently his was admitted to the hospital with human metapneumovirus and other complications. He is concerned because now he has been exposed to this virus. On examination he does have increased wheezing he has been coughing some. Therefore will go ahead and keep him on the prednisone and also start him on nebulized therapy to see if we can provide some relief. If the patient needs to increase the prednisone he can do so. In also placement antibiotics to avoid a postviral bacterial infection. The patient is also having issues with his atrial fibrillation worse now back with rapid ventricular response to some degree. He is considering cardioversion again. The patient is aware that that is okay once he heals from his ongoing respiratory issue. The patient is aware that he should avoid amiodarone as an antiarrhythmic agent and he can consider other agents. 11/14/2022 the patient is here for a pulm onary follow-up visit. He is grieving the loss of his . He has lost a good amount of weight. He has had some lower extremity edema. He still atrial fibrillation. The patient was being evaluated by Cardiology regarding possibility cardioversion. But 1st, he is going to have a echocardiogram and also more diuresis. He continues on the CellCept with good response. He is also on the Ofev. No significant adverse effects. He is using his respiratory therapy. He had called and we had prescribed some doxycycline for a lower respiratory infection. The patient is getting better although he still having some wheezing. We did provide him ipratropium nebulized solution addition to Xopenex in order for him to provide bronchodilation with less irritation to his cardiac issues. The patient has stopped using it because he was losing his voice. I did request that he can start using it daily because he does have some wheezing on exam. If the patient is no better if she gets worse she is to call the office for further recommendations. 03/20/2023 the patient is here for a pulm onary follow-up visit. Overall he is doing well from a respiratory status. He continues uses oxygen with good effect. He is able to take a break during the daytime. We did talk about maintaining the oxygen between 92 and 96%. Sometimes he less ago a little higher in explained to him that his body does better when he maintains it around the mid 90s. The patient has been continue his anti fibrotic therapy and immunomodulator therapy with good response. His cardiac condition appears to be a more stable. He has back pain also more stable. Now he has a motor wheelchair that does help him move around. He is also participating in some degree of pulmonary rehabilitation which is reassuring. It appears that the pulmonary fibrosis is stable and not significantly progressing. Plan to follow- up in the spring with pulmonary function studies. Also to note he has been using the nebulizer machine. Although he has been noticing some hoarseness and raspiness of his voice. He denies any significant wheezing any longer. Therefore we can just use the breathing treatments as needed. 06/12/2023 the patient is here for a pul monary follow-up visit. Recently he was in the hospital. Apparently he was in atrial fibrillation with rapid ventricular response requiring cardioversion. Unfortunately cardioversion did not work and ultimately required a repeat cardioversion. His course was complicated with an infection in the bladder and also potentially of the lung. He was treated with antibiotics. His oxygen requirements any change dramatically. He was also found to be anemic. I do not have those results. He had a very difficult time any still recovering from that. We did look at his CT scan of the the abdomen that he had during the stay. Did have some evidence of interstitial lung disease. All difficult to assess the progression of the disease at this time. He continues on the Ofev in continues on the prednisone 10 mg daily. His breathing is better so he can back off on the nebulizer treatments at this time. He is having some daytime drowsiness. His [place] score is elevated 24. With a history cardiovascular disease she will benefit from a sleep study. Will request an in-lab sleep study at this time. Will have him return after the sleep study and also will request a CT scan of the chest to reassess the degree of progression of his underlying pulmonary fibrosis. Also, the patient did bring some papers for his advanced directives. She wishes to be a DNR DNI. We did talk about the meaning of that as far as cardioversions are concerned. He would like to hold off on further cardioversions at this time. [facility] Medical History (Updated 06/12/23 @ 18:45 by Irvin Watts MD) Back pain Depression Insomnia PLMD (periodic limb movement disorder) COPD (chronic obstructive pulmonary disease) Atrial fibrillation Immunosuppression due to chronic steroid use IPF (idiopathic pulmonary fibrosis) Chronic respiratory failure ILD (interstitial lung disease) Social History (Updated 03/02/23 @ 11:36 by Ya Mauro LPN) Patient Tobacco Use Status: Never used Tobacco Review of Systems Const Reports daytime sleepiness, Reports difficulty sleeping, Reports fatigue, Denies fever(s), Reports headache(s), Denies night sweats and Reports snoring ENT Denies change in voice, Reports headache(s), Denies lip swelling, Denies mouth pain, Reports nasal congestion, Reports nasal discharge and Denies tongue swelling Card Denies chest pain and Reports dyspnea on exertion Resp Denies change in phlegm color, Denies chest congestion, Reports cough, Reports dyspnea on exertion, Reports snoring and Denies wheezing GI Denies abdominal pain Musc Reports back pain and Reports radiating pain into limb Neuro Denies Neuro-related abnormal movements, Reports headache(s) and Reports radicular pain Psych Reports as per HPI, Reports anxiety and Reports depression Endo Reports fatigue Devendra/Lymph Denies easy bleeding and Denies lymphadenopathy Aller/Immun Denies lip swelling, Denies tongue swelling and Denies wheezing Physical Exam Vital Signs: Last Vital Signs Pulse 65 12/12/23 10:24 BP 110/68 06/12/23 10:24 Pulse Ox 94 06/12/23 10:24 Oxygen Delivery Method Room Air 06/12/23 10:24 BMI result Body Mass Index 30.3 Const General: alert Neck Neck: Yes normal visual inspection, Yes full ROM and Yes no lymphadenopathy Chest Chest palpation & inspection: normal inspection of the chest Resp Auscultation: rales bilateral at the base and in the mid lung huff, no wheezes and diminished lung sounds Cardio Rate: regular rate Rhythm: regular rhythm Heart sounds: S1 normal heart sound present and S2 normal heart sound present GI Palpation (GI): Soft to palpation and nontender Auscultation: normal bowel sounds Skin General skin exam: rashes and/or lesions noted Results Reviewed Results Reviewed: personally reviewed CT abd with bibasilar retular changes/fibrosis Assessment & Plan Assessment & Plan (1) COPD (chronic obstructive pulmonary disease): Code(s): J44.9 - Chronic obstructive pulmonary disease, unspecified Qualifiers: COPD type: COPD with acute exacerbation Qualified Code(s): J44.1 - Chronic obstructive pulmonary disease with (acute) exacerbation (2) Immunosuppression due to chronic steroid use: Code(s): D84.821 - Immunodeficiency due to drugs; T38.0X5A - Adverse effect of glucocorticoids and synthetic analogues, initial encounter; Z79.52 - long-term (current) use of systemic steroids (3) IPF (idiopathic pulmonary fibrosis): Code(s): J84.112 - Idiopathic pulmonary fibrosis (4) Chronic respiratory failure: Code(s): J96.10 - Chronic respiratory failure, unspecified whether with hypoxia or hypercapnia Qualifiers: Respiratory failure complication: hypoxia Qualified Code(s): J96.11 - Chronic respiratory failure with hypoxia (5) ILD (interstitial lung disease): Comment: probable idiopathic pulmonary fibrosis. Currently being treated for the possibility of chronic hyper sensitivity pneumonitis. Appears to have a progressive process Code(s): J84.9 - Interstitial pulmonary disease, unspecified (6) KATHARINE (obstructive sleep apnea): Code(s): G47.33 - Obstructive sleep apnea (adult) (pediatric) (7) PLMD (periodic limb movement disorder): Code(s): G47.61 - Periodic limb movement disorder (8) Insomnia: Code(s): G47.00 - Insomnia, unspecified Qualifiers: Insomnia type: primary Qualified Code(s): F51.01 - Primary insomnia (9) Back pain: Code(s): M54.9 - Dorsalgia, unspecified Qualifiers: Back pain laterality: unspecified Back pain location: back pain in unspecified location Chronicity: chronic Qualified Code(s): M54.9 - Dorsalgia, unspecified; G89.29 - Other chronic pain (10) Atrial fibrillation: Code(s): I48.91 - Unspecified atrial fibrillation Qualifiers: Atrial fibrillation type: paroxysmal Qualified Code(s): I48.0 - Paroxysmal atrial fibrillation Plan Continue prednisone 10 mg daily, increase if no better continue Ipratropium nebs BID, 1-2 times a day as needed continue Xopenex BID as needed NANCY as needed Continue oxygen supplementation continue Mycophenalate continue OFEV in lab sleep study repeat CT chest Follow-up in 3 months discussed code status, signed MOLST form DNR/DNI Orders: Orders CT chest wo IV con 3 Months J84.112 - Idiopathic pulmonary fibrosis RT PSG in-lab sleep study Today I48.91 - Unspecified atrial fibrillation, J84.112 - Idiopathic pulmonary fibrosis Coding Level of Care Code Est Pt Level 5 (37103) Diagnoses Chronic obstructive pulmonary disease with acute exacerbation J44.1 COPD type: COPD with acute exacerbation Immunosuppression due to chronic steroid use D84.821; T38.0X5A; Z79.52 IPF (idiopathic pulmonary fibrosis) J84.112 Chronic respiratory failure with hypoxia J96.11 Respiratory failure complication: hypoxia ILD (interstitial lung disease) J84.9 KATHARINE (obstructive sleep apnea) G47.33 PLMD (periodic limb movement disorder) G47.61 Primary insomnia F51.01 Insomnia type: primary Chronic back pain, unspecified back location, unspecified back pain laterality M54.9; G89.29 Back pain laterality: unspecified Back pain location: back pain in unspecified location Chronicity: chronic Paroxysmal atrial fibrillation I48.0 Atrial fibrillation type: paroxysmal Time Spent (min) 35
[2023-06-12 10:24] VITALS: BP 110/68; PULSE 65; O2SAT 94; BMI 30.3
== END 2023-06-12 10:56 | disposition home or self-care (01) ==
PROVIDERS: PCP Internal Medicine; Visit Provider Hospitalist
DX: J44.1 Chronic obstructive pulmonary disease with (acute) exacerbation (principal); D84.821 Immunodeficiency due to drugs; T38.0X5A Adverse effect of glucocorticoids and synthetic analogues, initial encounter; Z79.52 Long term (current) use of systemic steroids; J84.112 Idiopathic pulmonary fibrosis; J96.11 Chronic respiratory failure with hypoxia; J84.9 Interstitial pulmonary disease, unspecified; G47.33 Obstructive sleep apnea (adult) (pediatric); G47.61 Periodic limb movement disorder; F51.01 Primary insomnia; M54.9 Dorsalgia, unspecified; G89.29 Other chronic pain
CPT/HCPCS: 99214

== ENCOUNTER → 2023-06-12 09:53 | Outpatient (BNVA) | payer MEDICARE, SELFPAY | PROVIDERS: PCP Internal Medicine; Visit Provider Hospitalist | DX: J44.1 Chronic obstructive pulmonary disease with (acute) exacerbation (principal); J84.112 Idiopathic pulmonary fibrosis; J96.11 Chronic respiratory failure with hypoxia; J84.9 Interstitial pulmonary disease, unspecified; G47.33 Obstructive sleep apnea (adult) (pediatric); G47.61 Periodic limb movement disorder; I48.0 Paroxysmal atrial fibrillation; F51.01 Primary insomnia; D84.821 Immunodeficiency due to drugs; T38.0X5A Adverse effect of glucocorticoids and synthetic analogues, initial encounter; M54.9 Dorsalgia, unspecified; G89.29 Other chronic pain; Z79.52 Long term (current) use of systemic steroids | CPT/HCPCS: 99212 ==

== ENCOUNTER 2023-09-13 12:51 | Outpatient (REF) | payer MEDICARE, SELFPAY ==
[2023-09-13 11:30] VITALS: PULSE 62; RESP 14; O2SAT 95
--- NOTE | 2023-09-13 14:41 | PFT_ITS ---
Indication: Pulmonary fibrosis Spirometry [FEV1 to FVC 86%; FEV1 1.6 L; FVC 1.85 L. No significant response to bronchodilators noted. Maximum voluntary ventilation 82% predicted] Lung Volumes [Total lung capacity 39% predicted] Diffusion Capacity [DLCO 24% predicted] Comparisons [None] Interpretation [No obstructive ventilatory defects. No significant response to bronchodilators noted. The patient does have a restrictive ventilatory defect consistent with severe restrictive lung disease due to his underlying pulmonary fibrosis/IPF. The patient also has a very severe diffusion impairment secondary to the pulmonary fibrosis as well. Clinical correlation warranted.] MTDD
== END 2023-09-13 12:52 | disposition home or self-care (01) ==
LOC: HO.RESP 12:51
PROVIDERS: PCP Internal Medicine; Visit Provider Hospitalist
DX: J84.112 Idiopathic pulmonary fibrosis (principal)
CPT/HCPCS: 94010; 94640; 94727; 94729

== ENCOUNTER → 2023-09-13 14:41 | Outpatient (BNV) | payer MEDICARE, SELFPAY | PROVIDERS: PCP Internal Medicine; Visit Provider Hospitalist | DX: J84.112 Idiopathic pulmonary fibrosis (principal) | CPT/HCPCS: 94060; 94727; 94729 ==

== ENCOUNTER 2023-09-18 09:17 | Outpatient (AMB) | payer MEDICARE, SELFPAY ==
[2023-09-18 09:32] VITALS: PULSE 62; O2SAT 94; BMI 30.3
--- NOTE | 2023-09-18 09:32 | A.OFFVIS_ITS ---
Intake Vital Signs 09/18/23 09:32 Height 6 ft 2 in Weight 236 lb 5.369 oz BMI 30.3 Pulse 62 Pulse Source Pulse Oximeter Pulse Oximetry (%) 94 Oxygen Delivery Method Room Air Intake Visit Reasons: copd [employer] Required: No Allergies Cipro Allergy (Mild, Uncoded 09/18/23 09:38) Tachycardia PCN Allergy (Mild, Uncoded 09/18/23 09:38) Hives Percocet Allergy (Mild, Uncoded 09/18/23 09:38) Hallucinations HPI HPI Comments History of Present Illness Details The patient is a 83-year-old gentleman with a known history high blood pressure in addition to hypothyroidism who apparently was in his usual state health until for the last several months when he has noticed progressive short ness of breath. He had been going to a transition move from his house to a condominium and why he was doing that he was exposed to inorganic dust in the form of cement. In addition to that he worked at [employer] for about 20 years of his life and prior to that he worked that [employer] with significant exposures well and she could be. Ultimately he was not complaining of any respiratory symptoms. More recently with increasing shortness of breath sensation he was evaluated by Cardiology. He had a stress test that was negative for any heart involvement but did have an episode of hypoxia when he dropped to 83%. After that he did get his own oximeter and he has been checking his oxygen and appears to be maintaining around 92-94%. However, he did have a CT scan of the abdomen back in June 2018 for his underlying renal calculi it was noted that he had evidence of pulmonary fibrosis which is concerning. Therefore due to his persistent symptoms and his hypoxia and abnormal CT scan of the abdomen he was referred to Pulmonary. We did review his blood work and was all relatively negative for any evidence of any connective tissue conditions or inflammatory conditions that can result in the interstitial lung disease. He also underwent for CT scan of the chest demonstrating mainly chronic changes with reticular changes and honeycombing as well as some traction bronchiectasis. However, he also has some degree of subacute or acute pneumonitis occurring and his left lower lung zone. Seems to have responded well to the trelegy, I will send him a generic at this time. In the meantime based on the findings demonstrating mainly chronic interstitial changes I am not sure that a surgical biopsy will really change over at this time. It is my suspicion that he may have a component of idiopathic pulmonary fibrosis based on the fact that he has peripheral raise reticular changes with some honeycombing primarily at the bases. The area that is less consistent is this like ground-glass area in the left base but this may be a different entity altogether. Therefore treating for idiopathic pulmonary fibrosis will be reasonable at this time. Based on the findings on his CT scan I suspect that he has a component of idiopathic pulmonary fibrosis. Continue the prednisone at low dose for now. Will discuss the use of anti- fibrotic therapy during the next visit. 09/12/2022 the patient is here for a pulm onary follow-up visit. He is here with his son. His back pain has been getting a little better P which is reassuring. He did follow-up with Neurosurgery and did not recommend surgery and went home because they did not feel that it would provide significant improvement and not worked risk. Therefore his continue with physical therapy and he has had some improvement. He may have to see a pain specialist to see about other alternative therapies for pain control. In the meantime from a respiratory status the patient had been doing well. Continues with his current medications further interstitial lung disease with adequate effect. Recently his was admitted to the hospital with human metapneumovirus and other complications. He is concerned because now he has been exposed to this virus. On examination he does have increased wheezing he has been coughing some. Therefore will go ahead and keep him on the prednisone and also start him on nebulized therapy to see if we can provide some relief. If the patient needs to increase the prednisone he can do so. In also placement antibiotics to avoid a postviral bacterial infection. The patient is also having issues with his atrial fibrillation worse now back with rapid ventricular response to some degree. He is considering cardioversion again. The patient is aware that that is okay once he heals from his ongoing respiratory issue. The patient is aware that he should avoid amiodarone as an antiarrhythmic agent and he can consider other agents. 11/14/2022 the patient is here for a pulm onary follow-up visit. He is grieving the loss of his . He has lost a good amount of weight. He has had some lower extremity edema. He still atrial fibrillation. The patient was being e valuated by Cardiology regarding possibility cardioversion. But 1st, he is going to have a echocardiogram and also more diuresis. He continues on the CellCept with good response. He is also on the Ofev. No significant adverse effects. He is using his respiratory therapy. He had called and we had prescribed some doxycycline for a lower respiratory infection. The patient is getting better although he still having some wheezing. We did provide him ipratropium nebulized solution addition to Xopenex in order for him to provide bronchodilation with less irritation to his cardiac issues. The patient has stopped using it because he was losing his voice. I did request that he can start using it daily because he does have some wheezing on exam. If the patient is no better if she gets worse she is to call the office for further recommendations. 03/20/2023 the patient is here for a pulm onary follow-up visit. Overall he is doing well from a respiratory status. He continues uses oxygen with good effect. He is able to take a break during the daytime. We did talk about maintaining the oxygen between 92 and 96%. Sometimes he less ago a little higher in explained to him that his body does better when he maintains it around the mid 90s. The patient has been continue his anti fibrotic therapy and immunomodulator therapy with good response. His cardiac condition appears to be a more stable. He has back pain also more stable. Now he has a motor wheelchair that does help him move around. He is also participating in some degree of pulmonary rehabilitation which is reassuring. It appears that the pulmonary fibrosis is stable and not significantly progressing. Plan to follow- up in the spring with pulmonary function studies. Also to note he has been using the nebulizer machine. Although he has been noticing some hoarseness and raspiness of his voice. He denies any significant wheezing any longer. Therefore we can just use the breathing treatments as needed. 06/12/2023 the patient is here for a pul monary follow-up visit. Recently he was in the hospital. Apparently he was in atrial fibrillation with rapid ventricular response requiring cardioversion. Unfortunately cardioversion did not work and ultimately required a repeat cardioversion. His course was complicated with an infection in the bladder and also potentially of the lung. He was treated with antibiotics. His oxygen requirements any change dramatically. He was also found to be anemic. I do not have those results. He had a very difficult time any still recovering from that. We did look at his CT scan of the the abdomen that he had during the stay. Did have some evidence of interstitial lung disease. All difficult to assess the progression of the disease at this time. He continues on the Ofev in continues on the prednisone 10 mg daily. His breathing is better so he can back off on the nebulizer treatments at this time. He is having some daytime drowsiness. His [place] score is elevated 05/25. With a history cardiovascular disease she will benefit from a sleep study. Will request an in-lab sleep study at this time. Will have him return after the sleep study and also will request a CT scan of the chest to reassess the degree of progression of his underlying pulmonary fibrosis. Also, the patient did bring some papers for his advanced directives. She wishes to be a DNR DNI. We did talk about the meaning of that as far as cardioversions are concerned. He would like to hold off on further cardioversions at this time. 09/18/2023 the patient is here for a pulm onary follow-up visit. The patient overall has been doing better. The patient feels like he has in a better state of health. He has been using his oxygen. However, he has been having issues wi th significant amount of nosebleeds and therefore has not been able to use the pulse oxygen via his nose. He has been just pulling in his mouth. He did try an OxyMask but unfortunately this will only can work with continues oxygen. He has been using humidifiers for the house. We did talk about saline gel to try to help decrease the irritation to the nose. In addition to that he has been using Afrin. I did caution not to use it more than 5 days at a time. The patient did have a CT scan of the chest which I personally reviewed demonstrating no significant changes in his underlying interstitial lung disease and pulmonary fibrosis. The patient also had pulmonary function studies demonstrating a severe restriction consistent with pulmonary fibrosis in a very severe diffusion impairment. Therefore, the patient understands that in view of having this severe restrictive lung disease due to the fibrosis he is high risk for any anesthesia or surgical procedures. He has been scheduled to undergo a Watchman procedure because the significant epistaxis not tolerating the Eliquis which I believe is a good option for him. Ideally if excuse be done without general anesthesia with a would be ideal. Again, the patient does have severe lung disease in therefore the severe risk for perioperative pulmonary complications which typically include; atelectasis, worsening hypoxia, pneumonia, prolonged mechanical ventilation and . Therefore prior to providing a surgical option all conservative approach is should be attempted. [facility] Medical History (Updated 06/12/23 @ 18:45 by Irvin Watts MD) Back pain Depression Insomnia PLMD (periodic limb movement disorder) COPD (chronic obstructive pulmonary disease) Atrial fibrillation Immunosuppression due to chronic steroid use IPF (idiopathic pulmonary fibrosis) Chronic respiratory failure ILD (interstitial lung disease) Social History (Updated 03/02/23 @ 11:36 by Ya Mauro LPN) Patient Tobacco Use Status: Never used Tobacco Review of Systems Const Reports daytime sleepiness, Reports difficulty sleeping, Reports fatigue, Denies fever(s), Reports headache(s), Denies night sweats and Reports snoring ENT Denies change in voice, Reports headache(s), Denies lip swelling, Reports epistaxis, Denies mouth pain, Reports nasal congestion, Reports nasal discharge and Denies tongue swelling Card Denies chest pain and Reports dyspnea on exertion Resp Denies change in phlegm color, Denies chest congestion, Reports cough, Reports dyspnea on exertion, Reports snoring and Denies wheezing GI Denies abdominal pain Musc Reports back pain and Reports radiating pain into limb Neuro Denies Neuro-related abnormal movements, Reports headache(s) and Reports radicular pain Psych Reports as per HPI, Reports anxiety and Reports depression Endo Reports fatigue Devendra/Lymph Denies easy bleeding and Denies lymphadenopathy Aller/Immun Denies lip swelling, Denies tongue swelling and Denies wheezing Physical Exam Vital Signs: Last Vital Signs Pulse 62 09/18/23 09:32 Pulse Ox 94 09/18/23 09:32 Oxygen Delivery Method Room Air 09/18/23 09:32 BMI result Body Mass Index 30.3 Const General: alert Neck Neck: Yes normal visual inspection, Yes full ROM and Yes no lymphadenopathy Chest Chest palpation & inspection: normal inspection of the chest Resp Auscultation: rales bilateral at the base and in the mid lung huff, no wheezes and diminished lung sounds Cardio Rate: regular rate Rhythm: regular rhythm Heart sounds: S1 normal heart sound present and S2 normal heart sound present GI Palpation (GI): Soft to palpation and nontender Auscultation: normal bowel sounds Skin General skin exam: rashes and/or lesions noted Assessment & Plan Assessment & Plan (1) COPD (chronic obstructive pulmonary disease): Code(s): J44.9 - Chronic obstructive pulmonary disease, unspecified Qualifiers: COPD type: COPD with acute exacerbation Qualified Code(s): J44.1 - Chronic obstructive pulmonary disease with (acute) exacerbation (2) Immunosuppression due to chronic steroid use: Code(s): D84.821 - Immunodeficiency due to drugs; T38.0X5A - Adverse effect of glucocorticoids and synthetic analogues, initial encounter; Z79.52 - FDC (current) use of systemic steroids (3) IPF (idiopathic pulmonary fibrosis): Code(s): J84.112 - Idiopathic pulmonary fibrosis (4) Chronic respiratory failure: Code(s): J96.10 - Chronic respiratory failure, unspecified whether with hypoxia or hypercapnia Qualifiers: Respiratory failure complication: hypoxia Qualified Code(s): J96.11 - Chronic respiratory failure with hypoxia (5) ILD (interstitial lung disease): Comment: probable idiopathic pulmonary fibrosis. Currently being treated for the possibility of chronic hyper sensitivity pneumonitis. Appears to have a progressive process Code(s): J84.9 - Interstitial pulmonary disease, unspecified (6) KATHARINE (obstructive sleep apnea): Code(s): G47.33 - Obstructive sleep apnea (adult) (pediatric) (7) PLMD (periodic limb movement disorder): Code(s): G47.61 - Periodic limb movement disorder (8) Insomnia: Code(s): G47.00 - Insomnia, unspecified Qualifiers: Insomnia type: primary Qualified Code(s): F51.01 - Primary insomnia (9) Back pain: Code(s): M54.9 - Dorsalgia, unspecified Qualifiers: Back pain laterality: unspecified Back pain location: back pain in unspecified location Chronicity: chronic Qualified Code(s): M54.9 - Dorsalgia, unspecified; G89.29 - Other chronic pain (10) Atrial fibrillation: Code(s): I48.91 - Unspecified atrial fibrillation Qualifiers: Atrial fibrillation type: paroxysmal Qualified Code(s): I48.0 - Paroxysmal atrial fibrillation (11) Pre-op chest exam: Code(s): Z01.811 - Encounter for preprocedural respiratory examination Plan The patient has pulmonary fibrosis with chronic respiratory failure on oxygen. His recent PFTs demonstrated interval worsening of the total lung capacity and a lso the diffusing capacity. CT scan of the chest is reassuring without any significant parenchymal worsening of his pulmonary fibrosis. At this point the patient is considered high risk for perioperative pulmonary complications due to his respiratory failure. These risks include; atelectasis, worsening hypoxia, pneumonia, prolonged mechanical ventilation and even . Therefore, the patient is going to go undergo any surgical procedures the risks and benefits have to be considered and alternative therapy should be provided. If no other alternative therapies is available then considering the higher risk procedures may be warranted. If general anesthesia can be avoided it will be preferred. Continue prednisone 10 mg daily, will recommend decreasing slowly to 7.5mg continue Ipratropium nebs BID, 1-2 times a day as needed continue Xopenex BID as needed NANCY as needed Continue oxygen supplementation continue Mycophenalate 2gm/day continue OFEV 150mg BID discussed code status, signed MOLST form DNR/DNI Medications: New prednisone 10 mg (2 x 5 mg) PO DAILY 30 days 60 tabs 11RF Coding Level of Care Code New Pt Level 5 (24208) Diagnoses Chronic obstructive pulmonary disease with acute exacerbation J44.1 COPD type: COPD with acute exacerbation Immunosuppression due to chronic steroid use D84.821; T38.0X5A; Z79.52 IPF (idiopathic pulmonary fibrosis) J84.112 Chronic respiratory failure with hypoxia J96.11 Respiratory failure complication: hypoxia ILD (interstitial lung disease) J84.9 KATHARINE (obstructive sleep apnea) G47.33 PLMD (periodic limb movement disorder) G47.61 Primary insomnia F51.01 Insomnia type: primary Chronic back pain, unspecified back location, unspecified back pain laterality M54.9; G89.29 Back pain laterality: unspecified Back pain location: back pain in unspecified location Chronicity: chronic Paroxysmal atrial fibrillation I48.0 Atrial fibrillation type: paroxysmal Pre-op chest exam Z01.811 Time Spent (min) 35
== END 2023-09-18 10:16 | disposition home or self-care (01) ==
PROVIDERS: PCP Internal Medicine; Visit Provider Hospitalist
DX: J44.1 Chronic obstructive pulmonary disease with (acute) exacerbation (principal); D84.821 Immunodeficiency due to drugs; T38.0X5A Adverse effect of glucocorticoids and synthetic analogues, initial encounter; Z79.52 Long term (current) use of systemic steroids; J84.112 Idiopathic pulmonary fibrosis; J96.11 Chronic respiratory failure with hypoxia; J84.9 Interstitial pulmonary disease, unspecified; G47.33 Obstructive sleep apnea (adult) (pediatric); G47.61 Periodic limb movement disorder; F51.01 Primary insomnia; M54.9 Dorsalgia, unspecified; G89.29 Other chronic pain
CPT/HCPCS: 99214

== ENCOUNTER → 2023-09-18 09:17 | Outpatient (BNVA) | payer MEDICARE, SELFPAY | PROVIDERS: PCP Internal Medicine; Visit Provider Hospitalist | DX: Z01.811 Encounter for preprocedural respiratory examination (principal); J84.112 Idiopathic pulmonary fibrosis; J96.11 Chronic respiratory failure with hypoxia; J44.1 Chronic obstructive pulmonary disease with (acute) exacerbation; J84.9 Interstitial pulmonary disease, unspecified; I48.0 Paroxysmal atrial fibrillation; M54.9 Dorsalgia, unspecified; G89.29 Other chronic pain; F51.01 Primary insomnia; G47.33 Obstructive sleep apnea (adult) (pediatric); G47.61 Periodic limb movement disorder; D84.821 Immunodeficiency due to drugs; T38.0X5A Adverse effect of glucocorticoids and synthetic analogues, initial encounter; Z79.52 Long term (current) use of systemic steroids; Z99.81 Dependence on supplemental oxygen; Z66 Do not resuscitate | CPT/HCPCS: 99212 ==

== ENCOUNTER 2024-03-24 09:42 | Outpatient (AMB) | payer MEDICARE, SELFPAY ==
--- NOTE | 2024-03-24 09:50 | A.OFFVIS_ITS ---
Vital Signs 03/24/24 09:53 Height 6 ft 2 in Weight 229 lb BMI 29.4 BP 118/70 Blood Pressure Location Lt brachial Position Sitting Pulse 82 Pulse Source Pulse Oximeter Pulse Oximetry (%) 94 Oxygen Delivery Method Room Air Intake Visit Reasons: COPD Work Order Detailer Required: No Allergies Cipro Allergy (Mild, Uncoded 03/24/24 09:54) Tachycardia PCN Allergy (Mild, Uncoded 03/24/24 09:54) Hives Percocet Allergy (Mild, Uncoded 03/24/24 09:54) Hallucinations HPI Comments Details: The patient is a 83-year-old gentleman with a known history high blood pressure in addition to hypothyroidism who apparently was in his usual state health until for the last several months when he has noticed progressive shortness of breath. He had been going to a transition move from his house to a condominium and why he was doing that he was exposed to inorganic dust in the form of cement. In addition to that he worked at [employer] for about 20 years of his life and prior to that he worked that [employer] with significant exposures well and she could be. Ultimately he was not complaining of any respiratory symptoms. More recently with increasing shortness of breath sensation he was evaluated by Cardiology. He had a stress test that was negative for any heart involvement but did have an episode of hypoxia when he dropped to 83%. After that he did get his own oximeter and he has been checking his oxygen and appears to be maintaining around 92-94%. However, he did have a CT scan of the abdomen back in June 2018 for his underlying renal calculi it was noted that he had evidence of pulmonary fibrosis which is concerning. Therefore due to his persistent symptoms and his hypoxia and abnormal CT scan of the abdomen he was referred to Pulmonary. We did review his blood work and was all relatively negative for any evidence of any connective tissue conditions or inflammatory conditions that can result in the interstitial lung disease. He also underwent for CT scan of the chest demonstrating mainly chronic changes with reticular changes and honeycombing as well as some traction bronchiectasis. However, he also has some degree of subacute or acute pneumonitis occurring and his left lower lung zone. Seems to have responded well to the trelegy, I will send him a generic at this time. In the meantime based on the findings demonstrating mainly chronic interstitial changes I am not sure that a surgical biopsy will really changer fixer at this time. It is my suspicion that he may have a component of idiopathic pulmonary fibrosis based on the fact that he has peripheral raise reticular changes with some honeycombing primarily at the bases. The area that is less consistent is this like ground-glass area in the left base but this may be a different entity altogether. Therefore treating for idiopathic pulmonary fibrosis will be reasonable at this time. Based on the findings on his CT scan I suspect that he has a component of idiopathic pulmonary fibrosis. Continue the prednisone at low dose for now. Will discuss the use of anti- fibrotic therapy during the next visit. 09/12/2022 the patient is here for a pulmonary follow-up visit. He is here with his son. His back pain has been getting a little better P which is reassuring. He did follow-up with Neurosurgery and did not recommend surgery and went home because they did not feel that it would provide significant improvement and not worked risk. Therefore his continue with physical therapy and he has had some i mprovement. He may have to see a pain specialist to see about other alternative therapies for pain control. In the meantime from a respiratory status the patient had been doing well. Continues with his current medications further interstitial lung disease with adequate effect. Recently his was admitted to the hospital with human metapneumovirus and other complications. He is concerned because now he has been exposed to this virus. On examination he does have increased wheezing he has been coughing some. Therefore will go ahead and keep him on the prednisone and also start him on nebulized therapy to see if we can provide some relief. If the patient needs to increase the prednisone he can do so. In also placement antibiotics to avoid a postviral bacterial infection. The patient is also having issues with his atrial fibrillation worse now back with rapid ventricular response to some degree. He is considering cardioversion again. The patient is aware that that is okay once he heals from his ongoing respiratory issue. The patient is aware that he should avoid amiodarone as an antiarrhythmic agent and he can consider other agents. 11/14/2022 the patient is here for a pulmonary follow-up visit. He is grieving the loss of his . He has lost a good amount of weight. He has had some lower extremity edema. He still atrial fibrillation. The patient was being evaluated by Cardiology regarding possibility cardioversion. But 1st, he is going to have a echocardiogram and also more diuresis. He continues on the CellCept with good response. He is also on the Ofev. No significant adverse effects. He is using his respiratory therapy. He had called and we had prescribed some doxycycline for a lower respiratory infection. The patient is getting better although he still having some wheezing. We did provide him ipratropium nebulized solution addition to Xopenex in order for him to provide bronchodilation with less irritation to his cardiac issues. The patient has stopped using it because he was losing his voice. I did request that he can start using it daily because he does have some wheezing on exam. If the patient is no better if she gets worse she is to call the office for further recommendations. 03/20/2023 the patient is here for a pulmonary follow-up visit. Overall he is doing well from a respiratory status. He continues uses oxygen with good effect. He is able to take a break during the daytime. We did talk about maintaining the oxygen between 92 and 96%. Sometimes he less ago a little higher in explained to him that his body does better when he maintains it around the mid 90s. The patient has been continue his anti fibrotic therapy and immunomodulator therapy with good response. His cardiac condition appears to be a more stable. He has back pain also more stable. Now he has a motor wheelchair that does help him move around. He is also participating in some degree of pulmonary rehabilitation which is reassuring. It appears that the pulmonary fibrosis is stable and not significantly progressing. Plan to follow- up in the spring with pulmonary function studies. Also to note he has been using the nebulizer machine. Although he has been noticing some hoarseness and raspiness of his voice. He denies any significant wheezing any longer. Therefore we can just use the breathing treatments as needed. 06/12/2023 the patient is here for a pulmonary follow-up visit. Recently he was in the hospital. Apparently he was in atrial fibrillation with rapid ventricular response requiring cardioversion. Unfortunately cardioversion did not work and ultimately required a repeat cardioversion. His course was complicated with an infection in the bladder and also potentially of the lung. He was treated with antibiotics. His oxygen requirements any change dramatically. He was also found to be anemic. I do not have those results. He had a very difficult time any still recovering from that. We did look at his CT scan of the the abdomen that he had during the stay. Did have some evidence of interstitial lung disease. All difficult to assess the progression of the disease at this time. He continues on the Ofev in continues on the prednisone 10 mg daily. His breathing is better so he can back off on the nebulizer treatments at this time. He is having some daytime drowsiness. His Gridley score is elevated 05/25. With a history cardiovascular disease she will benefit from a sleep study. Will request an in-lab sleep study at this time. Will have him return after the sleep study and also will request a CT scan of the chest to reassess the degree of progression of his underlying pulmonary fibrosis. Also, the patient did bring some papers for his advanced directives. She wishes to be a DNR DNI. We did talk about the meaning of that as far as cardioversions are concerned. He would like to hold off on further cardioversions at this time. 09/18/2023 the patient is here for a pulmonary follow-up visit. The patient overall has been doing better. The patient feels like he has in a better state of health. He has been using his oxygen. However, he has been having issues with significant amount of nosebleeds and therefore has not been able to use the pulse oxygen via his nose. He has been just pulling in his mouth. He did try an OxyMask but unfortunately this will only can work with continues oxygen. He has been using humidifiers for the house. We did talk about saline gel to try to help decrease the irritation to the nose. In addition to that he has been using Afrin. I did caution not to use it more than 5 days at a time. The patient did have a CT scan of the chest which I personally reviewed demonstrating no significant changes in his underlying interstitial lung disease and pulmonary fibrosis. The patient also had pulmonary function studies demonstrating a severe restriction consistent with pulmonary fibrosis in a very severe diffusion impairment. Therefore, the patient understands that in view of having this severe restrictive lung disease due to the fibrosis he is high risk for any anesthesia or surgical procedures. He has been scheduled to undergo a Watchman procedure because the significant epistaxis not tolerating the Eliquis which I believe is a good option for him. Ideally if excuse be done without general anesthesia with a would be ideal. Again, the patient does have severe lung disease in therefore the severe risk for perioperative pulmonary complications which typically include; atelectasis, worsening hypoxia, pneumonia, prolonged mechanical ventilation and . Therefore prior to providing a surgical option all conservative approach is should be attempted. 03/24/2024 the patient is here for a pulmonary follow-up visit. Overall he is doing okay. Last week he did have COVID he did take the antiviral therapy in did help him. Subsequently after that he started developing a cough which is congested in nature with yellowish phlegm. Moderate severity. Although he is feeling otherwise okay. He is concerned about pneumonia though. He has not had any fevers or chills. He also feels some sinus congestion. Will go ahead and treat him for postviral bacterial bronchitis at this time. Does have some crackles on examination but is his baseline. The patient also has had issues with atrial fibrillation. He feels is related to his frequent diarrhea from the Ofev. He had to stop the office for about 3 weeks while the diarrhea was significant he was having the atrial fibrillation. He is still on the amioda jesse as well. We did talk about that he can always consider decreasing the Ofev dose to the lower dose of 100 mg if he continues to have issues. He will let us know. Patient should also be weaned off the amiodarone or hopefully go to the lowest dose of 100 mg. He will talk to his waste collection driver soon. With his ongoing interstitial lung disease it will be dangerous to keep him on amiodarone. He did tolerate the Watchman procedure well. No evidence of any complications from it. He is still on the blood thinners until I believe a few weeks from now where he can then subsequently stop it. [facility] Medical History (Updated 03/24/24 @ 20:08 by Irvin Watts MD) Back pain Depression Insomnia PLMD (periodic limb movement disorder) COPD (chronic obstructive pulmonary disease) Atrial fibrillation Immunosuppression due to chronic steroid use IPF (idiopathic pulmonary fibrosis) Chronic respiratory failure ILD (interstitial lung disease) Social History (Updated 03/02/23 @ 11:36 by Ya Mauro LPN) Patient Tobacco Use Status: Never used Tobacco Review of Systems Const Reports daytime sleepiness, Reports difficulty sleeping, Reports fatigue, Denies fever(s), Reports headache(s), Denies night sweats and Reports snoring ENT Denies change in voice, Reports headache(s), Denies lip swelling, Reports epistaxis, Denies mouth pain, Reports nasal congestion, Reports nasal discharge and Denies tongue swelling Card Denies chest pain and Reports dyspnea on exertion Resp Denies change in phlegm color, Reports chest congestion, Reports cough, Reports dyspnea on exertion, Reports snoring and Denies wheezing GI Denies abdominal pain Musc Reports back pain and Reports radiating pain into limb Neuro Denies Neuro-related abnormal movements, Reports headache(s) and Reports radicular pain Psych Reports as per HPI, Reports anxiety and Reports depression Endo Reports fatigue Devendra/Lymph Denies easy bleeding and Denies lymphadenopathy Aller/Immun Denies lip swelling, Denies tongue swelling and Denies wheezing Physical Exam Vital Signs: Last Vital Signs Pulse 82 03/24/24 09:53 BP 118/70 03/24/24 09:53 Pulse Ox 94 03/24/24 09:53 Oxygen Delivery Method Room Air 03/24/24 09:53 BMI result Body Mass Index 29.4 Const General: alert Neck Neck: Yes normal visual inspection, Yes full ROM and Yes no lymphadenopathy Chest Chest palpation & inspection: normal inspection of the chest Resp Auscultation: rales bilateral at the base and in the mid lung huff, no wheezes and diminished lung sounds Cardio Rate: regular rate Rhythm: regular rhythm Heart sounds: S1 normal heart sound present and S2 normal heart sound present GI Palpation (GI): Soft to palpation and nontender Auscultation: normal bowel sounds Skin General skin exam: rashes and/or lesions noted Assessment & Plan Assessment & Plan (1) Bronchitis: Code(s): J40 - Bronchitis, not specified as acute or chronic Category: Medical (2) COPD (chronic obstructive pulmonary disease): Code(s): J44.9 - Chronic obstructive pulmonary disease, unspecified Category: Medical Qualifiers: COPD type: COPD with acute exacerbation Qualified Code(s): J44.1 - Chronic obstructive pulmonary disease with (acute) exacerbation (3) Immunosuppression due to chronic steroid use: Code(s): D84.821 - Immunodeficiency due to drugs; T38.0X5A - Adverse effect of glucocorticoids and synthetic analogues, initial encounter; 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 Currently being treated for the po ssibility of chronic hyper sensitivity pneumonitis. Appears to have a progressive process Code(s): J84.9 - Interstitial pulmonary disease, unspecified Category: Medical (7) KATHARINE (obstructive sleep apnea): Code(s): G47.33 - Obstructive sleep apnea (adult) (pediatric) Category: Medical (8) PLMD (periodic limb movement disorder): Code(s): G47.61 - Periodic limb movement disorder Category: Medical (9) Insomnia: Code(s): G47.00 - Insomnia, unspecified Category: Medical Qualifiers: Insomnia type: primary Qualified Code(s): F51.01 - Primary insomnia (10) Back pain: Code(s): M54.9 - Dorsalgia, unspecified Category: Medical Qualifiers: Back pain laterality: unspecified Back pain location: back pain in unspecified location Chronicity: chronic Qualified Code(s): M54.9 - Dorsalgia, unspecified; G89.29 - Other chronic pain (11) Atrial fibrillation: Code(s): I48.91 - Unspecified atrial fibrillation Category: Medical Qualifiers: Atrial fibrillation type: paroxysmal Qualified Code(s): I48.0 - Paroxysmal atrial fibrillation Plan start Doxycycline, will call if no better Continue prednisone 10 mg daily, will recommend decreasing slowly to 7.5mg->5mg continue Ipratropium nebs BID, 1-2 times a day as needed continue Xopenex BID as needed NANCY as needed Continue oxygen supplementation should either decrease Amiodarone to 100mg or avoid it all together continue Mycophenalate 2gm/day continue OFEV 150mg BID, consider decreasing to 100mg if worsening GI symptoms CXR F/U 2-3 months Orders: Orders XR chest 2V Today R05.9 - Cough, unspecified Medications: New doxycycline hyclate 100 mg PO BID 20 caps 0RF 10 days Coding Level of Care Code Est Pt Level 4 (55908) Complex EM visit Add On G2211 Diagnoses Bronchitis J40 Chronic obstructive pulmonary disease with acute exacerbation J44.1 COPD type: COPD with acute exacerbation Immunosuppression due to chronic steroid use D84.821; T38.0X5A; Z79.52 IPF (idiopathic pulmonary fibrosis) J84.112 Chronic respiratory failure with hypoxia J96.11 Respiratory failure complication: hypoxia ILD (interstitial lung disease) J84.9 KATHARINE (obstructive sleep apnea) G47.33 PLMD (periodic limb movement disorder) G47.61 Primary insomnia F51.01 Insomnia type: primary Chronic back pain, unspecified back location, unspecified back pain laterality M54.9; G89.29 Back pain laterality: unspecified Back pain location: back pain in unspecified location Chronicity: chronic Paroxysmal atrial fibrillation I48.0 Atrial fibrillation type: paroxysmal Time Spent (min) 17
[2024-03-24 09:53] VITALS: BP 118/70; PULSE 82; O2SAT 94; BMI 29.4
== END 2024-03-24 10:19 | disposition home or self-care (01) ==
PROVIDERS: PCP Internal Medicine; Visit Provider Hospitalist
DX: J40 Bronchitis, not specified as acute or chronic (principal); J44.1 Chronic obstructive pulmonary disease with (acute) exacerbation; D84.821 Immunodeficiency due to drugs; T38.0X5A Adverse effect of glucocorticoids and synthetic analogues, initial encounter; Z79.52 Long term (current) use of systemic steroids; J84.112 Idiopathic pulmonary fibrosis; J96.11 Chronic respiratory failure with hypoxia; J84.9 Interstitial pulmonary disease, unspecified; G47.33 Obstructive sleep apnea (adult) (pediatric); G47.61 Periodic limb movement disorder; F51.01 Primary insomnia; M54.9 Dorsalgia, unspecified; G89.29 Other chronic pain; I48.0 Paroxysmal atrial fibrillation
CPT/HCPCS: 99214; G2211

== ENCOUNTER → 2024-03-24 09:42 | Outpatient (BNVA) | payer MEDICARE, SELFPAY | PROVIDERS: PCP Internal Medicine; Visit Provider Hospitalist | DX: J40 Bronchitis, not specified as acute or chronic (principal); J44.1 Chronic obstructive pulmonary disease with (acute) exacerbation; J84.112 Idiopathic pulmonary fibrosis; J96.11 Chronic respiratory failure with hypoxia; J84.9 Interstitial pulmonary disease, unspecified; D84.821 Immunodeficiency due to drugs; T38.0X5A Adverse effect of glucocorticoids and synthetic analogues, initial encounter; G47.33 Obstructive sleep apnea (adult) (pediatric); G47.61 Periodic limb movement disorder; F51.01 Primary insomnia; M54.9 Dorsalgia, unspecified; G89.29 Other chronic pain; I48.0 Paroxysmal atrial fibrillation; Z79.52 Long term (current) use of systemic steroids | CPT/HCPCS: 99212 ==

== ENCOUNTER 2024-07-03 09:57 | Outpatient (AMB) | payer MEDICARE, SELFPAY ==
[2024-07-03 10:01] VITALS: BP 118/74; PULSE 74; O2SAT 99; BMI 29.9
--- NOTE | 2024-07-03 10:01 | MHC.OFFVIS ---
Vital Signs 07/03/24 10:01 Height 6 ft 2 in Weight 233 lb BMI 29.9 BP 118/74 Blood Pressure Location Lt brachial Position Sitting Pulse 74 Pulse Source Pulse Oximeter Pulse Oximetry (%) 99 Oxygen Delivery Method Nasal Cannula Oxygen Flow Rate 2 Intake Visit Reasons: COPD Allergies Cipro Allergy (Mild, Uncoded 07/03/24 10:05) Tachycardia PCN Allergy (Mild, Uncoded 07/03/24 10:05) Hives Percocet Allergy (Mild, Uncoded 07/03/24 10:05) Hallucinations HPI Comments Details: The patient is a 84-year-old gentleman with a known history high blood pressure in addition to hypothyroidism who apparently was in his usual state health until for the last several months when he has noticed progressive shortness of breath. He had been going to a transition move from his house to a condominium and why he was doing that he was exposed to inorganic dust in the form of cement. In addition to that he worked at [employer] for about 20 years of his life and prior to that he worked that [employer] with significant exposures well and she could be. Ultimately he was not complaining of any respiratory symptoms. More recently with increasing shortness of breath sensation he was evaluated by Cardiology. He had a stress test that was negative for any heart involvement but did have an episode of hypoxia when he dropped to 83%. After that he did get his own oximeter and he has been checking his oxygen and appears to be maintaining around 92-94%. However, he did have a CT scan of the abdomen back in June 2018 for his underlying renal calculi it was noted that he had evidence of pulmonary fibrosis which is concerning. Therefore due to his persistent symptoms and his hypoxia and abnormal CT scan of the abdomen he was referred to Pulmonary. We did review his blood work and was all relatively negative for any evidence of any connective tissue conditions or inflammatory conditions that can result in the interstitial lung disease. He also underwent for CT scan of the chest demonstrating mainly chronic changes with reticular changes and honeycombing as well as some traction bronchiectasis. However, he also has some degree of subacute or acute pneumonitis occurring and his left lower lung zone. Seems to have responded well to the trelegy, I will send him a generic at this time. In the meantime based on the findings demonstrating mainly chronic interstitial changes I am not sure that a surgical biopsy will really foreign exchange dealer at this time. It is my suspicion that he may have a component of idiopathic pulmonary fibrosis based on the fact that he has peripheral raise reticular changes with some honeycombing primarily at the bases. The area that is less consistent is this like ground-glass area in the left base but this may be a different entity altogether. Therefore treating for idiopathic pulmonary fibrosis will be reasonable at this time. Based on the findings on his CT scan I suspect that he has a component of idiopathic pulmonary fibrosis. Continue the prednisone at low dose for now. Will discuss the use of anti- fibrotic therapy during the next visit. 09/12/2022 the patient is here for a pulmonary follow-up visit. He is here with his son. His back pain has been getting a little better P which is reassuring. He did follow-up with Neurosurgery and did not recommend surgery and went home because they did not feel that it would provide significant improvement and not worked risk. Therefore his continue with physical therapy and he has had some improvement. He may have to see a pain specialist to see about other alternative therapies for pain control. In the meantime from a respiratory status the patient had been doing well. Continues with his current medications further interstitial lung disease with adequate effect. Recently his was admitted to the hospital with human metapneumovirus and other complications. He is concerned because now he has been exposed to this virus. On examination he does have increased wheezing he has been coughing some. Therefore will go ahead and keep him on the prednisone and also start him on nebulized therapy to see if we can provide some relief. If the patient needs to increase the prednisone he can do so. In also placement antibiotics to avoid a postviral bacterial infection. The patient is also having issues with his atrial fibrillation worse now back with rapid ventricular response to some degree. He is considering cardioversion again. The patient is aware that that is okay once he heals from his ongoing respiratory issue. The patient is aware that he should avoid amiodarone as an antiarrhythmic agent and he can consider other agents. 11/14/2022 the patient is here for a pulmonary follow-up visit. He is grieving the loss of his . He has lost a good amount of weight. He has had some lower extremity edema. He still atrial fibrillation. The patient was being evaluated by Cardiology regarding possibility cardioversion. But 1st, he is going to have a echocardiogram and also more diuresis. He continues on the CellCept with good response. He is also on the Ofev. No significant adverse effects. He is using his respiratory therapy. He had called and we had prescribed some doxycycline for a lower respiratory infection. The patient is getting better although he still having some wheezing. We did provide him ipratropium nebulized solution addition to Xopenex in order for him to provide bronchodilation with less irritation to his cardiac issues. The patient has stopped using it because he was losing his voice. I did request that he can start using it daily because he does have some wheezing on exam. If the patient is no better if she gets worse she is to call the office for further recommendations. 03/20/2023 the patient is here for a pulmonary follow-up visit. Overall he is doing well from a respiratory status. He continues uses oxygen with good effect. He is able to take a break during the daytime. We did talk about maintaining the oxygen between 92 and 96%. Sometimes he less ago a little higher in explained to him that his body does better when he maintains it around the mid 90s. The patient has been continue his anti fibrotic therapy and immunomodulator therapy with good response. His cardiac condition appears to be a more stable. He has back pain also more stable. Now he has a motor wheelchair that does help him move around. He is also participating in some degree of pulmonary rehabilitation which is reassuring. It appears that the pulmonary fibrosis is stable and not significantly progressing. Plan to follow-up in the spring with pulmonary function studies. Also to note he has been using the nebulizer machine. Although he has been noticing some hoarseness and raspiness of his voice. He denies any significant wheezing any longer. Therefore we can just use the breathing treatments as needed. 06/12/2023 the patient is here for a pulmonary follow-up visit. Recently he was in the hospital. Apparently he was in atrial fibrillation with rapid ventricular response requiring cardioversion. Unfortunately cardioversion did not work and ultimately required a repeat cardioversion. His course was complicated with an infection in the bladder and also potentially of the lung. He was treated with antibiotics. His oxygen requirements any change dramatically. He was also found to be anemic. I do not have those results. He had a very difficult time any still recovering from that. We did look at his CT scan of the the abdomen that he had during the stay. Did have some evidence of interstitial lung disease. All difficult to assess the progression of the disease at this time. He continues on the Ofev in continues on the prednisone 10 mg daily. His breathing is better so he can back off on the nebulizer treatments at this time. He is having some daytime drowsiness. His Arcadia score is elevated 05/25. With a history cardiovascular disease she will benefit from a sleep study. Will request an in-lab sleep study at this time. Will have him return after the sleep study and also will request a CT scan of the chest to reassess the degree of progression of his underlying pulmonary fibrosis. Also, the patient did bring some papers for his advanced directives. She wishes to be a DNR DNI. We did talk about the meaning of that as far as cardioversions are concerned. He would like to hold off on further cardioversions at this time. 09/18/2023 the patient is here for a pulmonary follow-up visit. The patient overall has been doing better. The patient feels like he has in a better state of health. He has been using his oxygen. However, he has been having issues with significant amount of nosebleeds and therefore has not been able to use the pulse oxygen via his nose. He has been just pulling in his mouth. He did try an OxyMask but unfortunately this will only can work with continues oxygen. He has been using humidifiers for the house. We did talk about saline gel to try to help decrease the irritation to the nose. In addition to that he has been using Afrin. I did caution not to use it more than 5 days at a time. The patient did have a CT scan of the chest which I personally reviewed demonstrating no significant changes in his underlying interstitial lung disease and pulmonary fibrosis. The patient also had pulmonary function studies demonstrating a severe restriction consistent with pulmonary fibrosis in a very severe diffusion impairment. Therefore, the patient understands that in view of having this severe restrictive lung disease due to the fibrosis he is high risk for any anesthesia or surgical procedures. He has been scheduled to undergo a Watchman procedure because the significant epistaxis not tolerating the Eliquis which I believe is a good option for him. Ideally if excuse be done without general anesthesia with a would be ideal. Again, the patient does have severe lung disease in therefore the severe risk for perioperative pulmonary complications which typically include; atelectasis, worsening hypoxia, pneumonia, prolonged mechanical ventilation and . Therefore prior to providing a surgical option all conservative approach is should be attempted. 03/24/2024 the patient is here for a pulmonary follow-up visit. Overall he is doing okay. Last week he did have COVID he did take the antiviral therapy in did help him. Subsequently after that he started developing a cough which is congested in nature with yellowish phlegm. Moderate severity. Although he is feeling otherwise okay. He is concerned about pneumonia though. He has not had any fevers or chills. He also feels some sinus congestion. Will go ahead and treat him for postviral bacterial bronchitis at this time. Does have some crackles on examination but is his baseline. The patient also has had issues with atrial fibrillation. He feels is related to his frequent diarrhea from the Ofev. He had to stop the office for about 3 weeks while the diarrhea was significant he was having the atrial fibrillation. He is still on the amiodarone as well. We did talk about that he can always consider decreasing the Ofev dose to the lower dose of 100 mg if he continues to have issues. He will let us know. Patient should also be weaned off the amiodarone or hopefully go to the lowest dose of 100 mg. He will talk to his machine operator helper soon. With his ongoing interstitial lung disease it will be dangerous to keep him on amiodarone. He did tolerate the Watchman procedure well. No evidence of any complications from it. He is still on the blood thinners until I believe a few weeks from now where he can then subsequently stop it. 07/03/2024 the patient is here for a pulmonary follow-up visit. The patient overall has been doing well. He has been on 5 mg of prednisone tolerating that well. He is concerned because he is having significant tooth decay related to the prednisone. He would like to decrease the prednisone if possible. He is also having diarrhea from the Ofev so he is taking a break. He is currently taking the lower dose although 5th right now. He did have a barium swallow which demonstrated some degree of dysmotility and did did mention the pulmonary fibrosis. Will go ahead and request a repeat x-ray this time. His last CT scan was back in 09/19/2023 demonstrating the pulmonary fibrosis. Will have him repeat his CT scan closer to the next appointment in the springtime. Hopefully we can decrease him to a lower dose of prednisone if not completely. He will continue with his other medications. He knows to go back on the Ofev whenever possible. In addition to that he is using the oxygen with good effect. The oxygen tanks work better for him than the POC. Although he is going on a trip soon and he is going to need a POC. Will see if his DME company that none him 1 for few weeks. The patient is doing very well from a cardiac standpoint and he is motivated and will look to be starting pulmonary rehabilitation at [facility] soon. [facility] Medical History (Updated 03/24/24 @ 20:08 by Irvin Watts MD) Back pain Depression Insomnia PLMD (periodic limb movement disorder) COPD (chronic obstructive pulmonary disease) Atrial fibrillation Immunosuppression due to chronic steroid use IPF (idiopathic pulmonary fibrosis) Chronic respiratory failure ILD (interstitial lung disease) Social History Patient Tobacco Use Status: Never used Tobacco Review of Systems Const Reports daytime sleepiness, Reports difficulty sleeping, Reports fatigue, Denies fever(s), Reports headache(s), Denies night sweats and Reports snoring ENT Denies change in voice, Reports headache(s), Denies lip swelling, Reports epistaxis, Denies mouth pain, Reports nasal congestion, Reports nasal discharge and Denies tongue swelling Card Denies chest pain and Reports dyspnea on exertion Resp Denies change in phlegm color, Reports chest congestion, Reports cough, Reports dyspnea on exertion, Reports snoring and Denies wheezing GI Denies abdominal pain Musc Reports back pain and Reports radiating pain into limb Neuro Denies Neuro-related abnormal movements, Reports headache(s) and Reports radicular pain Psych Reports as per HPI, Reports anxiety and Reports depression Endo Reports fatigue Devendra/Lymph Denies easy bleeding and Denies lymphadenopathy Aller/Immun Denies lip swelling, Denies tongue swelling and Denies wheezing Physical Exam Vital Signs: Last Vital Signs Pulse 74 07/03/24 10:01 BP 118/74 07/03/24 10:01 Pulse Ox 99 07/03/24 10:01 Oxygen Delivery Method Nasal Cannula 07/03/24 10:01 Oxygen Flow Rate 2 07/03/24 10:01 BMI result Body Mass Index 29.9 Const General: alert Neck Neck: Yes normal visual inspection, Yes full ROM and Yes no lymphadenopathy Chest Chest palpation & inspection: normal inspection of the chest Resp Auscultation: no wheezes and diminished lung sounds Cardio Rate: regular rate Rhythm: regular rhythm Heart sounds: S1 normal heart sound present and S2 normal heart sound present GI Palpation (GI): Soft to palpation and nontender Auscultation: normal bowel sounds Skin General skin exam: rashes and/or lesions noted Assessment & Plan Assessment & Plan (1) Bronchitis: Code(s): J40 - Bronchitis, not specified as acute or chronic Category: Medical (2) COPD (chronic obstructive pulmonary disease): Code(s): J44.9 - Chronic obstructive pulmonary disease, unspecified Category: Medical Qualifiers: COPD type: COPD with acute exacerbation Qualified Code(s): J44.1 - Chronic obstructive pulmonary disease with (acute) exacerbation (3) Immunosuppression due to chronic steroid use: Code(s): D84.821 - Immunodeficiency due to drugs; T38.0X5A - Adverse effect of glucocorticoids and synthetic analogues, initial encounter; Z79.52 - detention (current) use of systemic steroids Category: Medical (4) IPF (idiopathic pulmonary fibrosis): Code(s): J84.112 - Idiopathic pulmonary fibrosis Category: Medical (5) Chronic respiratory failure: Code(s): J96.10 - Chronic respiratory failure, unspecified whether with hypoxia or hypercapnia Category: Medical Qualifiers: Respiratory failure complication: hypoxia Qualified Code(s): J96.11 - Chronic respiratory failure with hypoxia (6) ILD (interstitial lung disease): Comment: probable idiopathic pulmonary fibrosis. Currently being treated for the possibility of chronic hyper sensitivity pneumonitis. Appears to have a progressive process Code(s): J84.9 - Interstitial pulmonary disease, unspecified Category: Medical (7) KATHARINE (obstructive sleep apnea): Code(s): G47.33 - Obstructive sleep apnea (adult) (pediatric) Category: Medical (8) PLMD (periodic limb movement disorder): Code(s): G47.61 - Periodic limb movement disorder Category: Medical (9) Insomnia: Code(s): G47.00 - Insomnia, unspecified Category: Medical Qualifiers: Insomnia type: primary Qualified Code(s): F51.01 - Primary insomnia (10) Back pain: Code(s): M54.9 - Dorsalgia, unspecified Category: Medical Qualifiers: Back pain laterality: unspecified Back pain location: back pain in unspecified location Chronicity: chronic Qualified Code(s): M54.9 - Dorsalgia, unspecified; G89.29 - Other chronic pain (11) Atrial fibrillation: Code(s): I48.91 - Unspecified atrial fibrillation Category: Medical Qualifiers: Atrial fibrillation type: paroxysmal Qualified Code(s): I48.0 - Paroxysmal atrial fibrillation Plan Decrease prednisone 5mg->4mg->3mg continue Ipratropium nebs BID, 1-2 times a day as needed continue Xopenex BID as needed NANCY as needed Continue oxygen supplementation 2l/pulse, will request from [employer] [facility] for a flight in October 2024 Amiodarone, lowest must effective dose continue Mycophenalate 2gm/day continue OFEV 150mg BID, consider decreasing to 100mg if worsening GI symptoms CXR now CT chest in the Spring 2024 start pulmonary rehab at [facility] F/U 2-3 months Orders: Orders Pulmonary Rehab Today J84.112 - Idiopathic pulmonary fibrosis, J84.9 - Interstitial pulmonary disease, unspecified, J96.11 - Chronic respiratory failure with hypoxia CT chest wo IV con 3 Months J84.112 - Idiopathic pulmonary fibrosis, J84.9 - Interstitial pulmonary disease, unspecified, J96.11 - Chronic respiratory failure with hypoxia XR chest 2V Today J84.112 - Idiopathic pulmonary fibrosis Medications: New prednisone 4 mg (4 x 1 mg) PO DAILY 30 days 120 tabs 3RF Coding Level of Care Code Est Pt Level 4 (02635) Complex EM visit Add On G2211 Diagnoses Bronchitis J40 Chronic obstructive pulmonary disease with acute exacerbation J44.1 COPD type: COPD with acute exacerbation Immunosuppression due to chronic steroid use D84.821; T38.0X5A; Z79.52 IPF (idiopathic pulmonary fibrosis) J84.112 Chronic respiratory failure with hypoxia J96.11 Respiratory failure complication: hypoxia ILD (interstitial lung disease) J84.9 KATHARINE (obstructive sleep apnea) G47.33 PLMD (periodic limb movement disorder) G47.61 Primary insomnia F51.01 Insomnia type: primary Chronic back pain, unspecified back location, unspecified back pain laterality M54.9; G89.29 Back pain laterality: unspecified Back pain location: back pain in unspecified location Chronicity: chronic Paroxysmal atrial fibrillation I48.0 Atrial fibrillation type: paroxysmal Time Spent (min) 18
== END 2024-07-03 10:42 | disposition home or self-care (01) ==
PROVIDERS: PCP Internal Medicine; Visit Provider Hospitalist
DX: J40 Bronchitis, not specified as acute or chronic (principal); J44.1 Chronic obstructive pulmonary disease with (acute) exacerbation; D84.821 Immunodeficiency due to drugs; T38.0X5A Adverse effect of glucocorticoids and synthetic analogues, initial encounter; Z79.52 Long term (current) use of systemic steroids; J84.112 Idiopathic pulmonary fibrosis; J96.11 Chronic respiratory failure with hypoxia; J84.9 Interstitial pulmonary disease, unspecified; G47.33 Obstructive sleep apnea (adult) (pediatric); G47.61 Periodic limb movement disorder; F51.01 Primary insomnia; M54.9 Dorsalgia, unspecified; G89.29 Other chronic pain; I48.0 Paroxysmal atrial fibrillation
CPT/HCPCS: 99214; G2211

== ENCOUNTER → 2024-07-03 09:57 | Outpatient (BNVA) | payer MEDICARE, SELFPAY | PROVIDERS: PCP Internal Medicine; Visit Provider Hospitalist | DX: J44.1 Chronic obstructive pulmonary disease with (acute) exacerbation (principal); T38.0X5A Adverse effect of glucocorticoids and synthetic analogues, initial encounter; J84.112 Idiopathic pulmonary fibrosis; J96.11 Chronic respiratory failure with hypoxia; J84.9 Interstitial pulmonary disease, unspecified; D84.821 Immunodeficiency due to drugs; G47.33 Obstructive sleep apnea (adult) (pediatric); G47.61 Periodic limb movement disorder; F51.01 Primary insomnia; M54.9 Dorsalgia, unspecified; G89.29 Other chronic pain; I48.0 Paroxysmal atrial fibrillation; Z79.52 Long term (current) use of systemic steroids | CPT/HCPCS: 99212 ==

== ENCOUNTER 2024-09-23 08:53 | Outpatient (REF) | payer MEDICARE, SELFPAY ==
--- NOTE | ~2024-09-23 | XR_ITS ---
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 FINDINGS: PA and lateral views of the chest are submitted. There are low lung volumes. Again seen are fibrotic changes in both lungs. There are no focal airspace opacities. There is no pleural effusion, pneumothorax, or pulmonary vascular congestion. The heart is enlarged. There is degenerative disc disease of the spine. Again seen is a moderate to severe compression deformity of an upper lumbar vertebral body. XR/XR chest 2V IMPRESSION: Cardiac megaly. Low lung volumes. Pulmonary fibrosis. Electronically signed by: Jose Guadalupe Bond MD 09/23/2024 10:30 AM EDT
--- NOTE | ~2024-09-23 | CT_ITS ---
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 There is a left atrial appendage closure device. No significant pericardial effusion. No thyromegaly or mediastinal lymphadenopathy. Similar distribution of multifocal bilateral reticulonodular interstitial densities, central bronchiectatic changes and bilateral mosaic attenuation. There is honeycombing in the left upper lobe. No definite superimposed pulmonary mass or consolidation. No pleural effusion or pneumothorax. Partial visualization of a right renal cyst. Multilevel flowing endplate osteophytes in the thoracic spine can be seen with DISH. Multiple old bilateral rib fractures. Mild T8 compression deformity increased inferior endplate irregularity compared to prior. IMPRESSION: 1. Interstitial pulmonary fibrosis with mildly progressive honeycombing in the left upper lobe. 2. No definite superimposed pulmonary parenchymal or pleural process. 3. Age-indeterminate mildly progressive mild T8 compression deformity. This document has been electronically signed by: Kelin Becker DO on 09/23/2024 18:31:15
--- OUTSIDE RECORDS SUMMARY | 2024-09-23 09:38 | XMS_ITS | Clinical Summary ---
Author Organization [address] [place] [address] [place] [address] [place] [address] Phone Care Team Providers Care Ultrasonic Solderer Name Role Phone David Bryan MD Primary Care Provider [phone] Allergies Active Allergy Reactions Criticality Noted Date Comments Ciprofloxacin 08/08/2022 Ciprofloxacin-Hydrocortisone 021 Medications torsemide (DEMADEX) 20 mg tablet TAKE 1.5 TABLETS BY MOUTH 2 TIMES DAILY. 4 Active azithromycin (ZITHROMAX) 500 mg tablet 1 TAB ONE HOUR PRIOR TO DENTAL PROCEDURES UNTIL 04/02/24 S/P WATCHMAN 4 Active aspirin 81 mg EC tablet Take 1 tablet (81 mg total) by mouth 1 (one) time each day. 4 Active vitamin B complex/folic acid (B COMPLEX 1, WITH FOLIC ACID, ORAL) Take 1 Tablet by mouth daily. Active FA/mv,Ca,iron,mi n/lycopene/lut (MULTIVITAL ORAL) Take 1 Tablet by mouth daily. Active rOPINIRole (REQUIP) 0.25 mg tablet Take 1 Tablet by mouth 3 times daily. Active pantoprazole (PROTONIX) 20 mg EC tablet Take 1 tablet (20 mg total) by mouth 1 (one) time each day. Active mirtazapine (REMERON) 15 mg tablet Take 1 Tablet by mouth at bedtime. Active cetirizine (ZyrTEC) 10 mg tablet Take 1 tablet (10 mg total) by mouth 1 (one) time each day. Active levalbuterol (XOPENEX) 0.31 mg/3 mL nebulizer solution Take 1 Ampule by nebulization every 4 hours as needed. Active ipratropium-albu teroL (DUONEB) 0.5-2.5 mg/3 mL nebulizer solution Inhale 3 mL into the lungs 4 times daily. Active tamsulosin (FLOMAX) 0.4 mg 24 hr capsule 2 capsules (0.8 mg total) 1 (one) time each day. Active oxyCODONE (ROXICODONE) 5 mg immediate release tablet Take 1 tablet (5 mg total) by mouth every 6 (six) hours if needed. Active levothyroxine (SYNTHROID, LEVOTHROID) 50 mcg tablet Take 50 mcg by mouth daily. Take 1 tab e, Sun, , Sun, Sat, Sun, 2 tabs on Mon Active Oxygen Therapy (O2) gas Inhale 3 L into the lungs daily. Uses daily on exertion and nightly when sleeping 2L Active montelukast (SINGULAIR) 10 mg tablet Take 1 tablet (10 mg total) by mouth 1 (one) time each day. Active mycophenolate (CELLCEPT) 500 mg tablet Take 2 tablets (1,000 mg total) by mouth 2 (two) times a day. Active multivitamin (MULTIPLE VITAMINS ORAL) Take 1 tablet by mouth. Active spironolactone (ALDACTONE) 25 mg tablet Take 0.5 tablets (12.5 mg total) by mouth 1 (one) time each day. 45 tablet 2 4 Active lisinopriL (PRINIVIL,ZESTRI L) 5 mg tablet Take 1 tablet (5 mg total) by mouth 1 (one) time each day. Active predniSONE (DELTASONE) 5 mg tablet Take 2 tablets (10 mg total) by mouth 1 (one) time each day. Active cholecalciferol (Vitamin D3) 5,000 Units tablet Take 1 tablet (5,000 Units total) by mouth 1 (one) time each day. Active amiodarone (PACERONE) 100 mg tablet Take 1 tablet (100 mg total) by mouth 1 (one) time each day. Active calcium citrate (CALCITRATE) 950 mg (200 mg elemental calcium) tabletIndication s:Chest pain, unspecified type,Paroxysmal atrial fibrillation (CMS/HCC),Presen ce of Watchman left atrial appendage closure device,Epistaxis Take 1 tablet (950 mg total) by mouth 1 (one) time each day. Active miconazole nitrate 2 % aerosol,spray Apply topically 1 (one) time each day. 133 g 2 5 025 Active Active Problems Problem Noted Date Diagnosed Date Fatigue 02/27/2024 Cardiomyopathy 06/15/2023 Overview (05/08/2024): - Nonischemic in the midst of septic shock with complete recovery after illness resolution - Also has chronic RV dysfunction-most likely cor pulmonale from history of pulmonary fibrosis - Echocardiogram during May 2023 admission at [facility] in the midst of urosepsis showed an EF of 35 to 40% with global hypokinesis - Repeat echocardiogram as an outpatient when the patient was clinically much improved from 09/11/2023 showed mild, concentric left ventricular hypertrophy with normal cavity size and systolic function, normal regional wall motion with an ejection fraction of 60 to 65%, moderate to severe RV enlargement with at least mildly reduced systolic function, mild tricuspid regurgitation with likely normal to upper normal pulmonary artery systolic pressure at 25 mmHg plus right atrial pressure, mild left atrial enlargement-compared with our echo from November 2022, the RV appeared a bit more dilated and hypokinetic Last Assessment & Plan: Complete improvement and normalization of ejection fraction on most recent echo from 09/11/2023. I reviewed this great news with him. I am not escalating any goal- directed medical therapy for HFrEF as a result. I suspect this was all in the setting of an acute sick state at the time. Continue low-dose lisinopril and metoprolol. He is euvolemic on exam. 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 Continue current torsemide 30mg po bid along with spironolactone 25mg daily. Pt is not on SGLT-2 inh but since he really hasn't had issues with this recently, I am holding off. SOB (shortness of breath) 11/08/2022 Chest pain 06/08/2022 Overview (05/08/2024): Chest pain Chest pain Assessment & Plan (08/24/2024 6:10 PM EST): Orders: ECG 12 lead Compression of lumbar vertebra 06/08/2022 Overview (05/08/2024): Last Assessment & Plan: Mr. Ford describes low back pain that started in November and has gotten worse since that time. He denies any history of trauma but is on prednisone daily for the past couple of years. He had pain with percussion around L4. He would like to proceed with lumbar kyphoplasty if it is an option. 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 I will review his films with Dr. Anderson. Hyperlipidemia 06/08/2022 Overview (05/08/2024): Hyperlipidemia Assessment & Plan (07/25/2024 10:52 PM EST): Hasn't had a fasting lipid profile updated in a bit. Will order this. Orders: Lipid panel; Future Palpitations 06/08/2022 Overview (05/08/2024): Palpitations Dilated aortic root 03/04/2021 Essential hypertension 03/04/2021 Overview (05/08/2024): Last Assessment & Plan: Well-controlled on current regimen, continue. Hypothyroidism 03/04/2021 Pulmonary fibrosis 03/04/2021 Paroxysmal atrial fibrillation 01/19/2021 Overview (05/08/2024): - Diagnosed in November 2020 and was [address] Mckee at [facility] cardiology in August 2021 when flecainide was initiated - Cardioverted on flecainide with maintenance of sinus rhythm for almost a year - Admitted back to [facility] in July 2022 with A-fib with RVR-flecainide had to be discontinued due to significant LVH, which is a contraindication - Saw Dr. Andrea in EP consult as a second opinion in August 2022 and he was not certain that the patient was truly symptomatic with his A-fib at the time-rate control was then pursued - Patient was admitted with cellulitis in April 2023 and treated with antibiotics and rate control - However, he was subsequently readmitted in May 2023-this time with heart failure associated with A-fib with RVR-underwent cardioversion and was put on amiodarone for suppression - Status post elective PVI ablation by Dr. Andrea along with cavotricuspid flutter ablation on 05/21/2023 - Unfortunately, he had a very matthew postprocedure course complicated by urosepsis and bacteremia requiring [facility] admission and [facility] on top of that - In the setting of septic shock, he went back into A-fib with RVR-was subsequently cardioverted again on 05/29/2023 and has remained in sinus rhythm ever since Last Assessment & Plan: Status post Watchman procedure. He will be due for his 45-day ANYA at [facility] in a couple months. He is currently on dual antiplatelet therapy which she is tolerating well without excessive bleeding anywhere. Continue current metoprolol for rate control. He is currently in sinus rhythm post ablation. Assessment & Plan (08/24/2024 6:10 PM EST): Orders: ECG 12 lead Assessment & Plan (07/25/2024 10:52 PM EST): Will cut amiodarone back to 100mg per recommended EP taper. Watchman for CVA proph. Resolved Problems Problem Noted Date Diagnosed Date Resolved Date Pulmonary edema 06/15/2023 07/25/2024 Lower leg edema 11/08/2022 07/25/2024 Encounters Date Type Department Care Team Description 09/09/2024 10:15 AM EDT Office Visit Orthopedic Surgery - [place] [address] [facility] [address] [place] [phone] Fareed Posadas, DPM Dermatophytosis of nail (Primary Dx); Tinea pedis of both feet; Pain in toe of right foot; Pain in toe of left foot; Neuritis; Difficulty walking [R26.2] 08/11/2024 1:40 PM EST - 08/11/2024 5:02 PM EST Emergency [facility] Emergency [address] [place] [address] Tarik Yee MD Chest wall muscle strain, initial encounter (Primary Dx) Discharge Disposition: Home or Self Care 07/29/2024 1:40 PM EST Office Visit [facility] - [address] [place] [phone] Emma Andrea MD Chest pain, unspecified type (Primary Dx); Paroxysmal atrial fibrillation (CMS/HCC); Presence of Watchman left atrial appendage closure device; Epistaxis 07/03/2024 Telephone Gastroenterology - [address] [facility] [address] [place] [phone] Gallo Villanueva PA 07/01/2024 8:11 AM EST - 07/01/2024 11:59 PM EST Hospital Encounter [facility] [place] [facility] [address] [place] [phone] Nausea Discharge Disposition: Home or Self Care 06/27/2024 Telephone Gastroenterology - [address] [facility] [address] [place] [phone] Estrada Yarbrough MD from Last 3 Months Medical History Medical History Date Comments Pulmonary fibrosis (CMS/HCC) DX: Pulmonary fibrosis (HCC) Hypothyroidism DX:Hypothyroidis m BPH (benign prostatic hyperplasia) DX:BPH (benign prostatic hyperplasia) Compression fracture of L4 v ertebra (CMS/HCC) DX:Compression fracture of L 4 vertebra (HCC) Chronic back pain DX:Chronic daniella k pain Interstitial lung disease (CMS/HCC) DX:Interstitial lung disease (HCC) COPD (chronic obstructive pu lmonary disease) (CMS/HCC) DX:COPD (chronic obstructive pulmonary disease) (HCC) Fracture of lumbar spine wit hout spinal cord lesion (CMS/HCC) DX:Fracture of lumbar spine without spinal cord lesion (HCC) Family History Medical History Relation Name Comments Angina Maternal Grandfather Relation Name Status Comments Father Maternal Grandfather Mother Social History Tobacco Use Types Packs/Day Years Used Date Smoking Tobacco: Never Smokeless Tobacco: Never Alcohol Use Standard Drinks/Week Comments Never 0 (1 standard drink = 0.6 oz pur e alcohol) Sex and Gender Information Value Date Recorded Sex Assigned at Male 05/02/2024 10:46 AM EDT Legal Sex Male 2:06 PM EST Gender Identity Male 05/02/2024 10:46 AM EDT Sexual Orientation Straight 05/02/2024 10 :47 AM EDT Obstetrics History Last Filed Vital Signs Vital Sign Reading Time Taken Comments Blood Pressure 134/76 08/11/2024 1:38 PM EST Pulse 93 08/11/2024 1:38 PM EST Temperature 36.5 ??C (97.7 ??F) 08/11/2024 1:38 PM ES T Respiratory Rate 20 08/11/2024 1:38 PM EST Oxygen Saturation 94% 08/11/2024 1:38 PM EST Inhaled Oxygen Concentration - - Weight 104 kg (230 lb) 09/09/2024 9:46 AM EDT Height 188 cm (6' 2.02 ) 09/09/2024 9:46 AM EDT Body Mass Index 29.52 09/09/2024 9:46 AM EDT Plan of Treatment Upcoming Encounters Date Type Department Care Team (Late st Contact Info) Description 12/10/2024 1:00 PM EDT Office Visit Orthopedic Surgery - [place] [address] [phone] Fareed Posadas, DPM [address] [address] 12/12/2024 10:40 AM EDT Office Visit [facility] [address] [facility] [address] [place] [address] Hi Bradshaw NP [address] [place] [address] 01/26/2025 1:40 PM EDT Office Visit [facility] [address] [facility] [address] [place] [phone] Christina Estes PA [address] [place] [address] Health Maintenance Due Date Last Done Comments DTaP,Tdap,and Td Vaccines (1 - Tdap) 1959 Zoster Vaccines (1 of 2) 1959 RSV Immunization Patients 60+ Years Old (1 - 1-dose 75+ series) 2016 Depression Screening 06/10/2022 Falls Risk Assessment 06/10/2022 Medicare Annual Wellness Visit 06/10/2022 Social Influencers of Health Screening 06/10/2022 COVID-19 Vaccine ( season) 2024 02/19/2021, 08/30/2020, 07/30/2020 Influenza Vaccine (#1) 2024 , 03/23/2021, 05/18/2020 Hypertension/CHF/CAD Annual BMP Blood Test 06/12/2025 06/12/2024, 01/18/2024, 01/18/2024, Additional history exists Cholesterol Screening (Lipid Panel) 06/12/2029 06/12/2024 Pneumococcal Vaccine: 50+ Years Completed 03/23/2021, 07/04/2018 HIB Vaccines Aged Out No longer eligi ble based on patient's age to complete this topic HPV Vaccines Aged Out No longer eligi ble based on patient's age to complete this topic Hepatitis A Vaccines Aged Out No long er eligible based on patient's age to complete this topic Hepatitis B Vaccines Aged Out No long er eligible based on patient's age to complete this topic IPV Vaccines Aged Out No longer eligi ble based on patient's age to complete this topic MMR Vaccines Aged Out No longer eligi ble based on patient's age to complete this topic Meningococcal ACWY Vaccine Aged Out N o longer eligible based on patient's age to complete this topic Meningococcal B Vacine Aged Out No lo nger eligible based on patient's age to complete this topic RSV Immunization Patients Under 20 months Aged Out No longer eligible based on patient's age to complete this topic Varicella Vaccines Aged Out No longer eligible based on patient's age to complete this topic Procedures Procedure Name Priority Date/Time Associated Diagnosis Comments XR CHEST 2 VIEWS STAT 08/11/2024 3:57 PM EST ECG 12-LEAD Routine 07/29/2024 2:20 PM EST Chest pain, unspecified type Paroxysmal atrial fibrillation (CMS/HCC) Presence of Watchman left atrial appendage closure device Epistaxis XR ESOPHAGRAM Routine 07/01/2024 8:59 AM EST Nausea BASIC METABOLIC PANEL Routine 06/12/2024 10:52 AM EST Longstanding persistent atrial fibrillation (CMS/HCC) LIPID PANEL WITH REFLEX TO DIRECT LDL Routine 06/12/2024 10:52 AM EST Longstanding persistent atrial fibrillation (CMS/HCC) Pure hypercholesterolemia from Last 3 Months or Most Recently Relevant to Health Maintenance Results * XR Chest 2 Views (08/11/2024 3:57 PM EST) Anatomical Region Laterality Modality Body Radiographic Leyla ging 08/11/2024 4:31 PM EST Impressions 08/11/2024 4:40 PM EST 1. Vascular crowding and atelectasis in the bases. There is no gross focal infiltrate although an early infectious process cannot be excluded. Continued follow-up is recommended. 2. Age-indeterminate compression fracture of L1. Report reviewed and signed by : Dr. Yonis Parra on 08/11/2024 4:40 PM. Workstation Name - [id number] -------- FINAL REPORT -------- Dictated By: Yonis Parra Dictated Date: 08/11/2024 16:31 ET Assigned Physician: Yonis Parra Reviewed and Electronically Signed By: Yonis Parra Signed Date: 08/11/2024 16:40 ET Workstation ID: [id number] Transcribed By: Self Edit Transcribed Date: 08/11/2024 16:31 ET Narrative 08/11/2024 4:40 PM EST XR CHEST 2 VIEWS HISTORY:84 years Male ??OTHER cough COMPARISON:Chest x-ray of 01/03/2020. FINDINGS: Low volume radiograph with vascular crowding and atelectatic changes in the bases. Pleural thickening is also again demonstrated. No cardiomegaly. Age indeterminate compression fracture of L1. Procedure Note Yonis Parra MD - 08/11/2024 XR CHEST 2 VIEWS HISTORY:84 years Male OTHER cough COMPARISON:Chest x-ray of 01/03/2020. FINDINGS: Low volume radiograph with vascular crowding and atelectatic changes inthe bases. Pleural thickening is also again demonstrated. No cardiomegaly. Age indeterminate compression fracture of L1. IMPRESSION: 1. Vascular crowding and atelectasis in the bases. There is no gross focalinfiltrate although an early infectious process cannot be excluded.Continued follow-up is recommended. 2. Age-indeterminate compression fracture of L1. Report reviewed and signed by : Dr. Yonis Parra on 08/11/2024 4:40 PM.Workstation Name - [id number] -------- FINAL REPORT -------- Dictated By: Yonis Parra Dictated Date: 08/11/2024 16:31 ET Assigned Physician: Yonis Parra Reviewed and Electronically Signed By: Yonis Parra Signed Date: 08/11/2024 16:40 ET Workstation ID: [id number] Transcribed By: Self Edit Transcribed Date: 08/11/2024 16:31 ET us Tarik Yee MD IMG XR PROCEDURES Final Res ult * ECG 12 lead (07/29/2024 2:20 PM EST) Ventricular Rate ECG 70 BPM GEMUSE Atrial Rate 70 BPM GEMUSE P-R Interval 178 ms GEMUSE QRS Duration 88 ms GEMUSE Q-T Interval 400 ms GEMUSE QTc 432 ms GEMUSE P Wave [place] 19 degrees GEMUSE R [place] -23 degrees GEMUSE T [place] 19 degrees GEMUSE ECG Interpretation Normal sinus rhythm When compared with ECG of 12-JUN-2024 09:34, No significant change was found Confirmed by DIONICIO ANDREA ([id number]) on 08/07/2024 5:17:33 AM GEMUSE 07/29/2024 2:2 0 PM EST 08/07/2024 5:17 AM EST us Emma Andrea MD ECG ORDERABLES Final Resu lt GEMUSE * XR Esophagram (07/01/2024 8:59 AM EST) Anatomical Region Laterality Modality Head and Neck Radiographic Leyla ging 07/01/2024 10:2 5 AM EST Impressions 07/01/2024 11:40 AM EST Moderate esophageal dysmotility, otherwise normal double contrast esophagram. -------- FINAL REPORT -------- Dictated By: Addie Zelaya Dictated Date: 07/01/2024 10:25 ET Assigned Physician: David Bella Reviewed and Electronically Signed By: David Bella Signed Date: 07/01/2024 11:40 ET Workstation ID: [id number] Transcribed By: Self Edit Transcribed Date: 07/01/2024 10:39 ET Resident/PA/LEAD PASTOR: Addie Zelaya Narrative 07/01/2024 11:40 AM EST FINDINGS: Double contrast esophagram performed. COMPARISON: Upper GI imaging June 23, 2011; portable chest x-ray July 14, 2022 HISTORY: Patient is an 84-year-old male with history of pulmonary fibrosis, on oxygen, nausea vomiting. Director Television radiographs: 1 view chest radiograph demonstrates low lung volumes, likely secondary to poor inspiratory effort. There are diffuse increased interstitial markings throughout both lungs without evidence of definitive consolidation. There is no pleural effusion. Cardiac silhouette is not well delineated. These findings are consistent with known history of pulmonary fibrosis, and are not greatly changed when compared to prior imaging from 2022. 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 Surgical clips seen within the right upper quadrant consistent with history of cholecystectomy. Severe diffuse bony degenerative changes of the thoracolumbar spine. Effervescent crystals were administered orally. Thick and thin barium were administered orally under fluoroscopic control. Pharyngoesophagram: Rapid sequence imaging of the hypopharynx during swallowing demonstrates prompt initiation of swallowing. There is normal soft palate elevation and normal epiglottic motion. There is no laryngeal penetration or talon aspiration. There is no residual in the vallecula nor in the piriform sinuses. Thoracic esophagus: There is moderate esophageal dysmotility as demonstrated by break in the primary peristaltic stripping wave and tertiary contractions visualized. Normal distensibility and mucosal pattern without evidence of ulceration, stricture or mass formation. Hiatal hernia: None. Small sliding-type hiatal hernia seen on prior upper GI imaging from June 2011 is not well appreciated on today's exam. Reflux: Unable to elicit 13mm Barium pill: Swallowed without difficulty. Prompt passage of pill from the esophagus into the stomach. DAP: 1867 uGym^2 Procedure Note David Bella MD - 07/01/2024 FINDINGS: Double contrast esophagram performed. COMPARISON: Upper GI imaging June 23, 2011; portable chest x-rayJan2022 HISTORY: Patient is an 84-year-old male with history of pulmonaryfibrosis, on oxygen, nausea vomiting. Director Television radiographs: 1 view chest radiograph demonstrates low lung volumes,likely secondary to poor inspiratory effort. There are diffuse increasedinterstitial markings throughout both lungs without evidence of definitiveconsolidation. There is no pleural effusion. Cardiac silhouette is notwell delineated. These findings are consistent with known history ofpulmonary fibrosis, and are not greatly changed when compared to priorimaging from 2022. Thoracic aortic ectasia with right inferior trachealdeviation without tracheal luminal compromise also seen on prior imagingfrom July 2022 remains unchanged. Surgical clips seen within the rightupper quadrant consistent with history of cholecystectomy. Severe diffusebony degenerative changes of the thoracolumbar spine. Effervescent crystals were administered orally. Thick and thin barium wereadministered orally under fluoroscopic control. Pharyngoesophagram: Rapid sequence imaging of the hypopharynx duringswallowing demonstrates prompt initiation of swallowing. There is normalsoft palate elevation and normal epiglottic motion. There is no laryngealpenetration or talon aspiration. There is no residual in the vallecula norin the piriform sinuses. Thoracic esophagus: There is moderate esophageal dysmotility asdemonstrated by break in the primary peristaltic stripping wave andtertiary contractions visualized. Normal distensibility and mucosalpattern without evidence of ulceration, stricture or mass formation. Hiatal hernia: None. Small sliding-type hiatal hernia seen on prior upperGI imaging from June 2011 is not well appreciated on today's exam. Reflux: Unable to elicit 13mm Barium pill: Swallowed without difficulty. Prompt passage of pillfrom the esophagus into the stomach. DAP: 1867 uGym^2 IMPRESSION: Moderate esophageal dysmotility, otherwise normal double contrastesophagram. -------- FINAL REPORT -------- Dictated By: Addie Zelaya Dictated Date: 07/01/2024 10:25 ET Assigned Physician: David Bella Reviewed and Electronically Signed By: David Bella Signed Date: 07/01/2024 11:40 ET Workstation ID: [id number] Transcribed By: Self Edit Transcribed Date: 07/01/2024 10:39 ET Resident/PA/LEAD PASTOR: Addie Zelaya Estrada Yarbrough MD IMG FLUOROSCOPY PROCEDURES Iesha l Result * (ABNORMAL) Lipid panel with reflex to direct LDL (06/12/2024 10:52 AM EST) Cholesterol 256(H) 0 - 200 mg/dL LAB CHEMISTRY METHOD 06/12/2024 12:34 PM [facility] Triglycerides 171(H) 0 - 150 mg/dL LAB CHEMISTRY METHOD 06/12/2024 12:34 PM [facility] HDL 92 >=40 mg/dL LAB CHEMISTRY METHOD 06/12/2024 12:34 PM [facility] LDL Calculated 130(H) 0 - 100 mg/dL LAB CHEMISTRY METHOD 06/12/2024 12:34 PM [facility] VLDL Cholesterol Blade 34.2 mg/dL LAB CHEMISTRY METHOD 06/12/2024 12:34 PM [facility] Non HDL Chol. (LDL+VLDL) 164(H) <145 mg/dL LAB CHEMISTRY METHOD 06/12/2024 12:34 PM [facility] Chol/HDL Ratio 2.8 0.0 - 4.4 LAB CHEMISTRY METHOD 06/12/2024 12:34 PM [facility] Blood Venous blood specimen / Unknown Venipuncture / Unknown 06/12/2024 10:52 AM EST 06/12/2024 11:32 AM EST us Sarah Jhaveri MD LAB BLOOD ORDERABLES Final Resu lt [facility] [address] [place] [address], [place] [phone] * (ABNORMAL) Basic metabolic panel (06/12/2024 10:52 AM EST) Sodium 141 133 - 145 mmol/L LAB CHEMISTRY METHOD 06/12/2024 12:31 PM [facility] Potassium 4.4 3.5 - 5.5 mmol/L LAB CHEMISTRY METHOD 06/12/2024 12:31 PM [facility] Chloride 104 96 - 110 mmol/L LAB CHEMISTRY METHOD 06/12/2024 12:31 PM [facility] CO2 30 21 - 32 mmol/L LAB CHEMISTRY METHOD 06/12/2024 12:31 PM [facility] Anion Gap 7 3 - 11 LAB CHEMISTRY METHOD 06/12/2024 12:31 PM [facility] Glucose 103(H) 70 - 100 mg/dL LAB CHEMISTRY METHOD 06/12/2024 12:31 PM [facility] BUN 24 5 - 25 mg/dL LAB CHEMISTRY METHOD 06/12/2024 12:31 PM [facility] Creatinine 1.55(H) 0.70 - 1.30 mg/dL LAB CHEMISTRY METHOD 06/12/2024 12:31 PM [facility] eGFR 44(L) >=60 mL/min/1. 73m2 LAB CHEMISTRY METHOD 06/12/2024 12:31 PM [facility] Comment:Calculation based on the??Chronic Kidney Disease Epidemiology Collaboration (CKD-EPI) equation refit??without adjustment for race. BUN/Creatinine Ratio 15.5 LAB CHEMISTRY METHOD 06/12/2024 12:31 PM [facility] Calcium 9.4 8.5 - 10.5 mg/dL LAB CHEMISTRY METHOD 06/12/2024 12:31 PM EST [facility] Blood Venous blood specimen / Unknown Venipuncture / Unknown 06/12/2024 10:52 AM EST 06/12/2024 11:32 AM EST us Sarah Jhaveri MD LAB BLOOD ORDERABLES Final Resu lt [facility] [address] [place] [address], from Last 3 Months or Most Recently Relevant to Health Maintenance Insurance MEDICARE [facility] Care Teams Ultrasonic Solderer Relationship Specialty Start Date End Date David Bryan MD [address] [place], [place] PCP - General Software Engineer Developer 09/25/14
--- OUTSIDE RECORDS SUMMARY | 2024-09-23 09:38 | XMS_ITS | Data Portability ---
Author Organization ABHIJIT Duncan s, [address] Address [address] [place] [address] Care Team Providers Care Financial Systems Manager Name Role Phone ITZ PALACIOS Primary Care Provider [phone] Assessment No assessment recorded. Plan of Treatment Reminders Order Date Submit Date Provider Last Modified By Organization Details Last Modified Time Details Appointments None recorded. Lab None recorded. Referral None recorded. Procedures None recorded. Surgeries None recorded. Imaging XR, foot, 3 or more view 2023 024 [facility], [address] [place] [address], [address], 12:10:40 Medication Orders colchicine 0.[address] [facility] #[id number], [address] [place], [address], 4 11:46:01 cephalexin 500 mg capsule 2023 024 [id number] [address] [place], [address], 4 11:04:07 Bactrim DS 800 mg-160 mg tablet 2023 024 [id number] [address] [place], [address], 4 11:03:59 Patient TargetsNo targets recorded. Patient Instructions Encounter Date Encounter Id Patient Instructions Last Modified By Organization Details Last Modified Time 10/17/2023 [id number] Bursitis is pain and swelling of the bursae. These are sacs of fluid that help your joints move smoothly. Olecranon bursitis is a type of bursitis that affects the back of the elbow. This is sometimes called Vladislav elbow because the bump that develops looks like the cartoon character Vladislav's elbow. Injury, overuse, or prolonged pressure on your elbow can cause this form of bursitis. Sometimes it happens when people have arthritis. It also can occur for unknown reasons. Treatment may include draining fluid from the bursa with a needle. If your doctor thought there was infection, he or she may have prescribed antibiotics. You also may get shots of medicine into the bursa to help the swelling go down. Your elbow should get better in a few days or weeks. Take pain medicines exactly as directed. If the doctor gave you a prescription medicine for pain, take it as prescribed. If you are not taking a prescription pain medicine, ask your doctor if you can take an jhnx-otr-dluydbj medicine. Do not take two or more pain medicines at the same time unless the doctor told you to. Many pain medicines have acetaminophen, which is Tylenol. Too much acetaminophen (Tylenol) can be harmful. If your doctor prescribed antibiotics, take them as directed. Do not stop taking them just because you feel better. You need to take the full course of antibiotics. If your doctor gave you a sling, an elastic bandage, or a compression sleeve, wear it exactly as instructed. Put ice or a cold pack on your elbow for 10 to 20 minutes at a time. Try to do this every 1 to 2 hours for the next 3 days (when you are awake) or until the swelling goes down. Put a thin cloth between the ice and your skin. After 3 days, you can try heat, or alternate heat and ice. Rest your elbow. Try to stop or reduce any activity that causes pain. Wear elbow pads during physical activity to prevent injury. Do not lean your elbows on tables or armrests. Call your doctor or or seek immediate medical care if: You have new or worse symptoms of infection, such as: Increased pain, swelling, warmth, or redness. Red streaks leading from the area. Pus draining from the area. A fever. [email or web address] Not available 10/17/2023 13:41:58 01/05/2024 [id number] gout: care instructions Not available 01/05/2024 11:45:57 learning about rice (rest, ice, compression, and elevation) Not available 01/05/2024 11:25:58 Reason for Referral None Reported. Results Created Date Observation Date Name Description Value Unit Range Abnormal Flag Note LastModifiedBy Organization Detail LastModifiedTime 01/05/20 24 01/05/2024 XR, foot, 3 or more view No observ ation record ed. [email or web address] [facility] [address] [place], [address], 01/05/2024 12:13:29 01/05/20 24 XR, foot, 3 or more view No observ ation record ed. [email or web address] [facility] [address] [place], [address], 01/05/2024 14:42:23 Result Notes None recorded. Problems Name Problem SNOMED Code Status Onset Date Resolution Date Notes Provider Name and Address Organization Details Recorded Time Fibrosis of lung 47797473 Active 2023 Christina Bricault null, PA - [facility] 4 11:12:51 Gastroesophage al reflux disease 593858966 Active 2023 Christina Bricault null, PA - [facility] 4 11:12:47 Atrial fibrillation 25813638 Active 2023 Christina Bricault null, PA - [facility] 4 11:12:42 Hypothyroidism 01424367 Active 2023 Christina Bricault null, PA - [facility] 4 11:13:10 Hypertensive disorder 44304072 Active 2023 Christina Bricault null, PA - [facility] 4 11:13:43 Prostatitis 9131699 Active 2023 Christina Bricault null, PA - [facility] 4 11:13:59 Edema 112347199 Active 2023 Christina Bricault null, PA - [facility] 4 11:14:23 Problem Notes None recorded. Procedures Surgical History None recorded. Imaging Results Imaging Date Name Status LastModified by Organiz ation Details LastModified Time 01/05/2024 XR, foot, 3 or more view completed [email or web address] [facility] [address] [place], [address], 01/05/2024 12:13:29 01/05/2024 XR, foot, 3 or more view completed [email or web address] [facility] [address] [place], [address], 01/05/2024 14:42:23 Procedure Notes None recorded. Medical Equipment None Reported. Allergies Allergen ID Allergen Name Allergen Category Reaction Reaction Severity Criticality Documentation Date Start Date Code Code System Note Provider Name and Address Organization Details Recorded Time 730806 Cipro medicatio n Not available Not available [employer] 10/17/202373400 3 RxNorm ABHIJIT Mullins - [facility] 13:06:14 Medications Name Sig Start Date Stop Date Status Note LastModified by Organization Details LastModified Time amoxicillin 500 mg capsule TAKE 1 CAPSULE BY MOUTH THREE TIMES A DAY 10/16 completed Not Available Not Available Not Available furosemide 40 mg tablet TAKE 1 TABLET BY MOUTH TWICE A DAY 01/04 completed Not Available Not Available Not Available prednisone 10 mg tablet TAKE 2 TABLETS BY MOUTH EVERY DAY 01/04 completed Not Available Not Available Not Available torsemide 20 mg tablet TAKE 1.5 TABLETS BY MOUTH 2 TIMES DAILY. active Not Available Not Available No t Available fosfomycin tromethamin e 3 gram oral packet MIX 1 PACKET IN LIQUID AND DRINK BY MOUTH NOW AND REPEAT IN 3 DAYS 01/04 completed Not Available Not Available Not Available amiodarone 200 mg tablet TAKE 1 TABLET BY MOUTH EVERY DAY 10/16 completed Not Available Not Available Not Available prednisone 5 mg tablet TAKE 2 TABLETS ORALLY ONCE DAILY FOR 30 DAYS active Not Available Not Available No t Available doxycycline monohydrate 100 mg tablet TAKE 1 TABLET BY MOUTH TWICE A DAY FOR 14 DAYS 10/16 completed Not Available Not Available Not Available spironolact one 25 mg tablet TAKE 1/2 TABLET BY MOUTH DAILY active Not Available Not Available No t Available pantoprazol e 20 mg tablet,larry yed release TAKE 1 TABLET BY MOUTH EVERY DAY DIRECTED active Not Available Not Available No t Available mycophenola te mofetil 500 mg tablet TAKE 2 TABLETS BY MOUTH TWICE A DAY active Not Available Not Available No t Available tamsulosin 0.4 mg capsule TAKE 2 CAPSULES BY MOUTH AT BEDTIME active Not Available Not Available No t Available ropinirole 0.25 mg tablet PLEASE SEE ATTACHED FOR DETAILED DIRECTION S active Not Available Not Available No t Available levothyroxi ne 50 mcg tablet TAKE 1 TABLET BY MOUTH EVERY DAY active Not Available Not Available No t Available cephalexin 500 mg capsule TAKE 1 CAPSULE BY MOUTH EVERY 12 HOURS FOR 7 DAYS 10/16 completed Not Available Not Available Not Available nystatin-tr iamcinolone 100,000 unit/g-0.1 % topical cream APPLY TO AFFECTED AREA TWICE A DAY 01/04 completed Not Available Not Available Not Available montelukast 10 mg tablet TAKE 1 TABLET BY MOUTH EVERY EVENING active Not Available Not Available No t Available lisinopril 5 mg tablet TAKE 1 TABLET BY MOUTH EVERY DAY active Not Available Not Available No t Available furosemide 20 mg tablet TAKE 1 TABLET BY MOUTH EVERY DAY 01/04 completed Not Available Not Available Not Available metoprolol succinate ER 25 mg tablet,exte nded release 24 hr TAKE 1 TABLET BY MOUTH EVERY DAY 01/04 completed Not Available Not Available Not Available nystatin 100,000 unit/gram topical powder APPLY TO AFFECTED AREA 3 TIMES A DAY FOR 14 DAYS active Not Available Not Available No t Available levalbutero l 1.25 mg/3 mL solution for nebulizatio n INHALE 1 VIAL (3ML) VIA NEBULIZER ROUTE 2 TIMES A DAY FOR 30 DAYS 01/04 completed Not Available Not Available Not Available levofloxaci n 750 mg tablet TAKE 1 TABLET BY MOUTH EVERY 24 HOURS FOR 2 DAYS 01/04 completed Not Available Not Available Not Available colchicine 0.6 mg tablet Take 2 tabs at once and a 3rd an hour later. May repeat in 3 days if needed 2023 active Not Available Not Available Not Avai lable clotrimazol e 1 % topical cream PLEASE SEE ATTACHED FOR DETAILED DIRECTION S 10/16 completed Not Available Not Available Not Available K-Phos No 2 305 mg-700 mg tablet TAKE 1 TABLET BY MOUTH TWO TIMES A DAY 01/04 completed Not Available Not Available Not Available finasteride 5 mg tablet TAKE 1 TABLET BY MOUTH EVERY DAY 10/16 completed Not Available Not Available Not Available ipratropium bromide 0.02 % solution for inhalation USE 1 VIAL VIA NEBULIZER TWICE DAILY 01/04 completed Not Available Not Available Not Available amoxicillin 875 mg-potassiu m clavulanate 125 mg tablet TAKE 1 TABLET BY MOUTH EVERY 12 HOURS FOR 7 DAYS 10/16 completed Not Available Not Available Not Available oxycodone 5 mg tablet TAKE 1 TABLET (5 MG) BY MOUTH EVERY 6 HOURS NEEDED active Not Available Not Available No t Available azithromyci n 500 mg tablet TAKE 1 TABLET BY MOUTH EVERY DAY FOR 5 DAYS 10/16 completed Not Available Not Available Not Available diltiazem ER 180 mg tablet,exte nded release 24 hr TAKE 1 TABLET BY MOUTH EVERY DAY 10/16 completed Not Available Not Available Not Available cyclobenzap rine 5 mg tablet TAKE 1 TABLET BY MOUTH TWICE A DAY NEEDED 10/16 completed Not Available Not Available Not Available metoprolol tartrate 25 mg tablet TAKE 1 TABLET BY MOUTH 2 TIMES DAILY FOR 360 DAYS. active Not Available Not Available No t Available aspirin active Not Available Not Avail able Not Available prednisone 01/04 completed Not Available Not Available Not Available hydrochloro thiazide 12.5 mg tablet TAKE 1 TABLET BY MOUTH EVERY DAY 01/04 completed Not Available Not Available Not Available Eliquis 5 mg tablet TAKE 1 TABLET BY MOUTH TWICE A DAY 01/04 completed Not Available Not Available Not Available Ofev 150 mg capsule Take 1 capsule every 12 hours by oral route. active Not Available Not Available No t Available oxygen 2l active Not Available Not Availa ble Not Available Tiadylt ER 360 mg capsule,ext ended release TAKE 1 CAPSULE BY MOUTH EVERY DAY 01/04 completed Not Available Not Available Not Available Flowflex COVID-19 Antigen Home Test kit USE DIRECTED 01/04 completed Not Available Not Available Not Available Vitals Date Recorded Body height Body mass index (BMI) Body weight Oxygen saturation Oxygen saturation in Arterial blood by Pulse oximetry Heart rate Respiratory rate Body temperature Pain severity - 0-10 verbal numeric rating [Score] - Reported Systolic blood pressure Diastolic blood pressure Provider Name and Address Organization Details Last Updated DateTime 4 187.96 cm 28.2 kg/m2 11942.3 2 g 97 % 97 % 83 /min 18 /min 97.8 [degF] 6 110 mm[Hg] 69 mm[Hg] Lisa Negron PA - [facility] 13:09:55 Date Recorded Body height Body mass index (BMI) Body weight Pain severity - 0-10 verbal numeric rating [Score] - Reported Respiratory rate Oxygen saturation Oxygen saturation in Arterial blood by Pulse oximetry Heart rate Systolic blood pressure Diastolic blood pressure Provider Name and Address Organization Details Last Updated DateTime 4 187.96 cm 28.2 kg/m2 38671.3 2 g 8 24 /min 95 % 95 % 91 /min 112 mm[Hg] 71 mm[Hg] Christina Mckeon [facility] 11:18:53 Social History Question Answer Notes LastModified by Organizat ion Details LastModified Time Tobacco Smoking Status Never Smoker Lisa Negron null, PA - [facility] 10/17/2023 13:09:07 What Is Your Level Of Alcohol Consumption? None Information not available 10/17/2023 Are You Currently Employed? No Information not available 10/17/2023 Have You Had A Flu Shot This Season? Yes [email or web address] Information not available 01/05/2024 If No, Would You Like A Flu Shot Today? No Information not available 10/17/2023 Have You Had Direct Contact, Or Contact During Intimacy, With Monkeypox Rash, Scabs, Or Body Fluids From A Person With Monkeypox? No Information not available 10/17/2023 What Was The Date Of Your Most Recent Tobacco Screening? 10/17/2023 Information not available 10/17/2023 What Is Your Relationship Status? Single Information not available 10/17/2023 Do You Use Any Illicit Or Recreational Drugs? No Information not available 10/17/2023 Have You Recently Traveled Abroad? No Information no t available 10/17/2023 Are You Currently In School? No Information not available 10/17/2023 Do You Or Have You Ever Used Any Other Forms Of Tobacco Or Nicotine? No Information not available 10/17/2023 Sex: Unknown Functional Status None recorded. Mental Status None recorded. Family History Relationship Description Onset Age of this Age Resolved Age Notes LastModified by Organization Details LastModified Time Father No current problems or disability darrenylrosales ethan Not available 10/17/2023 13:08:46 Mother No current problems or disability [email or web address] ethan Not available 10/17/2023 13:08:46 Medical History No medical history recorded. Past Encounters Encounter ID Performer Location Encounter Start Date Encounter Closed Date Diagnosis/Indication Diagnosis SNOMED-CT Code Diagnosis ICD10 Code Diagnosis Note [id number] [address] [facility] [address] [facility] [address] 11/22/2015 16:47:55 11/22/2015 18:10:10 [id number] [facility]IT [facility] [address] [facility] [address] [facility] [address] 10/17/2023 12:22:25 10/17/2023 13:53:44 Bursitis of olecranon of right elbow 9198103408 98774 M70.21 Infected bursa 730338005 M71.10 [id number] ABHIJIT Wasserman [address] [facility] [address] [facility] [place] [address] 01/05/2024 10:46:26 01/05/2024 11:47:54 Pain in left foot 7398444389 67541 M79.672 Gout 84443924 M10.9 Based on your presentati on and exam, you are being diagnosed with gout. Gout is a form of arthritis. It can cause pain and swelling in the joints. At first, it tends to affect only 1 joint ? most frequently the big toe. It happens in people who have too much uric acid in the blood. Uric acid is a chemical that is produced when the body breaks down certain foods. Uric acid can form sharp needle-lik e crystals that build up in the joints and cause pain. Uric acid crystals can also form inside the tubes that carry urine from the kidneys to the bladder. These crystals can turn into kidney stones that can cause pain and problems with the flow of urine. People with gout get sudden flares or attacks of severe pain, most often the big toe, ankle, or knee. Often, the joint also turns red and swells. Usually, only 1 joint is affected, but some people have pain in more than 1 joint. Gout flares tend to happen more often during the night. The following can be done by you to help prevent gout:1. If you are overweight - losing weight can help relieve gout.2. Drink plenty of water, and try not to get dehydrated .3. You should limit sugary drinks and alcohol, which can make gout flares worse.4. Limit foods that are high in purines. (Purines are natural substances found in many foods.) The following will help with your symptoms:1 . Rest2. Ice your joint Don't hesitate to be seen again if you develop worsening symptoms or symptoms do not improve with the medication s prescribed . The following symptoms would warrent a more immediate office visit:1. Increased Swelling2. Redness Tracking away from the intial affected area3. Heat4. Breakdown of the skin or ulceration 5. Skin turning blood or black6. Purulent discharge7 . Loss of sensation Thank you for using [email or web address] , please don't hesitate to reach out to us if you have any questions. Health Concerns Section Related Observation LastModified by Organization Detai ls LastModified Time None Recorded Concern Status LastModified by Organization Details LastModified Time None Recorded Advance Directives Directive None Recorded Payers Encounter Date Sequence Insurance Name Policy Number Policy Mcrae Covered Member ID Mcrae Member ID Guarantor Name 11/22/2015 1 [place] [employer] Isai Ford [id number] Isai Ford 11/22/2015 2 [place] [id number] Isai Ford [id number] Isai Ford 10/17/2023 1 [place] Isai Ford [id number] Isai Ford 10/17/2023 2 [place] [id number] Isai Ford Sr [id number] Isai Gifford Logan 01/05/2024 1 [place] Isai Ford [id number] 58 Isai Gifford Logan 01/05/2024 2 [place] [id number] Isai Ford [id number] Isai Ford Notes Date Note Type Note Provider Name and Address Organization Details Recorded Time 10/17/2023 text/html Upper Arm Elbow Injury UCReported bypatient.Notes:[age] y.o male pt presents with right elbow swelling with local erythema that started a few days ago. Pt has full flexion and extension. He denies pain or fever. ABHIJIT ABREU [address] [place], [address], [facility] 10/17/2023 16:02:39 01/05/2024 text/html 83 y/o male here with L lateral foot pain starting yesterday, no injury. Concerned for fracture given level of pain and h/o chronic steroid use ABHIJIT Wasserman [address] [place], [address], [place] [facility] [facility] 01/05/2024 11:52:36
--- OUTSIDE RECORDS SUMMARY | 2024-09-23 09:38 | XMS_ITS | Encounter Summary ---
Author Organization [facility] Address [address] [place] [address] Care Team Providers Care Structural Metal Fabricator Apprentice Name Role Phone David Bryan MD Primary Care Provider [phone] Reason for Visit * Reason Comments Follow-up Encounter Details Date Type Department Care Team (Late st Contact Info) Description 07/29/2024 1:40 PM EST Office Visit [facility] - [address] [place] [phone] Emma Andrea MD [address] [place] [address] Chest pain, unspecified type (Primary Dx); Paroxysmal atrial fibrillation (CMS/HCC); Presence of Watchman left atrial appendage closure device; Epistaxis Social History Tobacco Use Types Packs/Day Years [...] Orientation Straight 05/02/2024 10 :47 AM EDT documented as of this encounter Last Filed Vital Signs Vital Sign Reading Time Taken Comments Blood Pressure 136/68 07/29/2024 2:15 PM EST Pulse 70 07/29/2024 2:15 PM EST Temperature - - Respiratory Rate - - Oxygen Saturation 94% 07/29/2024 2:15 PM EST witout his oxygen Inhaled Oxygen Concentration - - Weight - - Height - - Body Mass Index - - documented in this encounter Progress Notes * Emma Andrea MD - 07/29/2024 1:40 PM ESTAssociated Problem(s): Chest pain Orders: ECG 12 lead * Emma Andrea MD - 07/29/2024 1:40 PM ESTAssociated Problem(s): Paroxysmal atrial fibrillation (CMS/HCC) Orders: ECG 12 lead * Emma Andrea MD - 07/29/2024 1:40 PM EST Images from the original note were not included. [facility] PCP: David Bryan MD HPI: 84 yr. old Male presents for cardiology follow up. Past medical history includes- Status post #20 mm Watchman FLX device October 24, 2023 post watchman ANYA December 04, without evidence ofthrombus or VANITA device leak, small iatrogenic atrial septal defect with [id number] shunting-EF 55 to 60%. He will remain on aspirin lifelong, Plavix until April 24 along with dental prophylaxisuntil that time. Persistent A-fib first diagnosed November 2020 , anticoagulated with a [id number] score of 3. Placed on flecainide underwent cardioversion maintain sinus rhythm for about a year. He had recurrence July 2022 flecainide was discontinued secondary to LVH, he had recurrence in the setting of acute illness Mar 2023 underwent cardioversion and placed on amiodarone for suppression. On May 21 he underwent elective A-fib ablation by PVI and ablation of cavotricuspid dependent flutter. Post procedure complicated by urosepsis and bacteremia requiring admission to CCU, had FELIX. Echo during admission EF 35 to 40%. HFrEF normalized with maintaining sinus rhythm Hypertension Hyperlipidemia Pulmonary fibrosis chronically on O2 , sleep study negative for KATHARINE Morbid obesity intentionally has lost 25 pounds since April with diet modifications. Anemia Cardiac testing- -ANYA October 2023 EF 55 to 60%. Echocardiogram at [facility] May 23 EF 35 to 40% severe hypokinesis of the mid to distal lateral walland inferior wall grade 2 moderate diastolic dysfunction Definity was used for echo. -48-hour Holter monitor July 2022-A-fib throughout average heart rate 83 bpm, range 42 to 133 bpm ventricular trigeminy PVC burden less than 1% no prolonged pauses Since his last follow-up, he has not had any hospitalizations or emergency room visits. Denies chest pain, dyspnea, palpitations, or significant exercise intolerance. He is currently on amiodarone and a low-dose aspirin as he had a prior appendage closure device. ACTIVE MEDICATIONS: Outpatient Medications Marked as Taking for the 07/29/24 encounter (Office Visit) with Emma Andrea MD Medication Sig Dispense Refill amiodarone (PACERONE) 100 mg tablet Take 1 tablet (100 mg total) by mouth 1 (one) time each day. aspirin 81 mg EC tablet Take 1 tablet (81 mg total) by mouth 1 (one) time each day. azithromycin (ZITHROMAX) 500 mg tablet 1 TAB ONE HOUR PRIOR TO DENTAL PROCEDURES UNTIL 04/02/24 S/P WATCHMAN cetirizine (ZyrTEC) 10 mg tablet Take 1 tablet (10 mg total) by mouth 1 (one) time each day. cholecalciferol (Vitamin D3) 5,000 Units tablet Take 1 tablet (5,000 Units total) by mouth 1 (one) time each day. FA/mv,Ca,iron,min/lycopene/lut (MULTIVITAL ORAL) Take 1 Tablet by mouth daily. ipratropium-albuteroL (DUONEB) 0.5-2.5 mg/3 mL nebulizer solution Inhale 3 mL into the lungs 4 times daily. levothyroxine (SYNTHROID, LEVOTHROID) 50 mcg tablet Take 50 mcg by mouth daily. Take 1 tab Tue, Wed, , Fri, Sat, Sun, 2 tabs on Mon lisinopriL (PRINIVIL,ZESTRIL) 5 mg tablet Take 1 tablet (5 mg total) by mouth 1 (one) time each day. mirtazapine (REMERON) 15 mg tablet Take 1 Tablet by mouth at bedtime. montelukast (SINGULAIR) 10 mg tablet Take 1 tablet (10 mg total) by mouth 1 (one) time each day. mycophenolate (CELLCEPT) 500 mg tablet Take 2 tablets (1,000 mg total) by mouth 2 (two) times a day. oxyCODONE (ROXICODONE) 5 mg immediate release tablet Take 1 tablet (5 mg total) by mouth every 6 (six) hours if needed. Oxygen Therapy (O2) gas Inhale 3 L into the lungs daily. Uses daily on exertion and nightly when sleeping 2L pantoprazole (PROTONIX) 20 mg EC tablet Take 1 tablet (20 mg total) by mouth 1 (one) time each day. predniSONE (DELTASONE) 5 mg tablet Take 2 tablets (10 mg total) by mouth 1 (one) time each day. rOPINIRole (REQUIP) 0.25 mg tablet Take 1 Tablet by mouth 3 times daily. spironolactone (ALDACTONE) 25 mg tablet Take 0.5 tablets (12.5 mg total) by mouth 1 (one) time eachday. 45 tablet 2 tamsulosin (FLOMAX) 0.4 mg 24 hr capsule 2 capsules (0.8 mg total) 1 (one) time each day. torsemide (DEMADEX) 20 mg tablet TAKE 1.5 TABLETS BY MOUTH 2 TIMES DAILY. vitamin B complex/folic acid (B COMPLEX 1, WITH FOLIC ACID, ORAL) Take 1 Tablet by mouth daily. PAST MEDICAL HISTORY: Patient Active Problem List Diagnosis Acute heart failure with preserved ejection fraction (CMS/HCC) Cardiomyopathy (CMS/HCC) Chest pain Compression of lumbar vertebra (CMS/HCC) Dilated aortic root (CMS/HCC) Essential hypertension Fatigue Hyperlipidemia Hypothyroidism Palpitations Paroxysmal atrial fibrillation (CMS/HCC) Peripheral edema Pulmonary fibrosis (CMS/HCC) SOB (shortness of breath) ALLERGIES: Allergies Allergen Reactions Ciprofloxacin Ciprofloxacin-Hydrocortisone FAMILY HISTORY: Family History Problem Relation Name Age of Onset Angina Maternal Grandfather SOCIAL HISTORY: Social History Tobacco Use Smoking status: Never Smokeless tobacco: Never Substance Use Topics Alcohol use: Never PHYSICAL EXAM: Vitals: 07/29/24 1415 BP: 136/68 BP Location: Left arm Patient Position: Sitting BP Cuff Size: Adult Pulse: 70 SpO2: 94% Physical Exam EKG: Encounter Date: 07/29/24 ECG 12 lead Result Value Ventricular Rate ECG 70 Atrial Rate 70 P-R Interval 178 QRS Duration 88 Q-T Interval 400 QTc 432 P Wave Bartow 19 R Bartow -23 T Bartow 19 ECG Interpretation Normal sinus rhythm When compared with ECG of 12-JUN-2024 09:34, No significant change was found Confirmed by DIONICIO ANDREA ([id number]) on 08/07/2024 5:17:33 AM *Note: Due to a large number of results and/or encounters for the requested time period, some results have not been displayed. A complete set of results can be found in Results Review. TESTING: Reviewed ASSESSMENT/PLAN: 84-year-old gentleman possible history approximator fibrillation with a prior radiofrequency ablation with a pulm vein isolation and posterior wall isolation, history of a prior appendage closure device, pulmonary fibrosis on O2, heart failure with reduced ejection fraction improved, hypertension, hyperlipidemia here for a follow-up -- He is doing well. Continue low-dose amiodarone therapy along with his low- dose aspirin. He is due for a pulmonary function testing soon. He will be going to a family wedding this october and will follow-up again with us in 6 months. Assessment & Plan Chest pain, unspecified type Orders: ECG 12 lead Paroxysmal atrial fibrillation (CMS/HCC) Orders: ECG 12 lead Presence of Watchman left atrial appendage closure device Orders: ECG 12 lead Epistaxis Orders: ECG 12 lead The [facility] team will continue to co-manage this patient following the plan of care as established by my initial visit and as per AHA guidelines for ongoing management and surveillance of Atrial Fibrillation, pulmonary fibrosis, HTN, anemia This will include medication titration, initiation of appropriate medications and further titration, and diagnostic studies to manage this disease process. documented in this encounter Plan of Treatment Upcoming Encounters Date Type Department Care Team (Late st Contact Info) Description 12/10/2024 1:00 PM EDT Office Visit [facility] - [place] [address] [phone] Fareed Posadas, DPM [address] [address] 12/12/2024 10:40 AM EDT Office Visit [facility] - [address] [place] [address] Hi Bradshaw NP [address] [place] [address] 01/26/2025 1:40 PM EDT Office Visit [facility] - [address] [place] [phone] Christina Estes PA [address] [place], [place] [id number] documented as of this encounter Procedures Procedure Name Priority Date/Time Associated Diagnosis Comments ECG 12-LEAD Routine 07/29/2024 2:20 PM EST Chest pain, unspecified type Paroxysmal atrial fibrillation (CMS/HCC) Presence of Watchman left atrial appendage closure device Epistaxis documented in this encounter Results * ECG 12 lead (07/29/2024 2:20 PM EST) Ventricular Rate ECG 70 BPM GEMUSE Atrial Rate 70 BPM GEMUSE P-R Interval 178 ms GEMUSE QRS Duration 88 ms GEMUSE Q-T Interval 400 ms GEMUSE QTc 432 ms GEMUSE P Wave Bartow 19 degrees GEMUSE R Bartow -23 degrees GEMUSE T Bartow 19 degrees GEMUSE ECG Interpretation Normal sinus rhythm When compared with ECG of 12-JUN-2024 09:34, No significant change was found Confirmed by DIONICIO ANDREA ([id number]) on 08/07/2024 5:17:33 AM GEMUSE 07/29/2024 2:20 PM EST 08/07/2024 5:17 AM EST us Emma Andrea MD ECG ORDERABLES Final Resu lt GEMUSE documented in this encounter Visit Diagnoses Diagnosis Chest pain, unspecified type- Primary Paroxysmal atrial fibrillation (CMS/HCC) Atrial fibrillation Presence of Watchman left atrial appendage closure device Epistaxis documented in this encounter Historical Medications * This list may reflect changes made after this encounter. calcium citrate (CALCITRATE) 950 mg (200 mg elemental calcium) tabletIndications:C hest pain, unspecified type,Paroxysmal atrial fibrillation (CMS/HCC),Presence of Watchman left atrial appendage closure device,Epistaxis Take 1 tablet (950 mg total) by mouth 1 (one) time each day. added in this encounter Care Teams Structural Metal Fabricator Apprentice Relationship Specialty Start Date End Date David Bryan MD [address] PCP - General Varnish Cooker 09/25/14 documented as of this encounter
--- OUTSIDE RECORDS SUMMARY | 2024-09-23 09:38 | XMS_ITS | Continuity of Care Document ---
Author Organization [facility] [address] [place] [address] Phone [phone] Care Team Providers Care Signal Repairer Name Role Phone David Bryan M.D. Care Team Information Restaurant Mgr [phone] Problems Active Problems Provider Date Essential hypertension Ngozi Orozco Onset: 08/29/2022 Hypothyroidism Mariel Ruelas M.D. Ons et: 08/29/2022 Osteoarthritis Marile Ruelas M.D. Ons et: 08/29/2022 Prostatism Mariel Ruelas M.D. Ons et: 08/29/2022 Idiopathic pulmonary fibrosis Mariel marin M.D. Onset: 08/29/2022 Osteoporotic fracture Hayley Orozco Onset: 08/29/2022 Obesity Mariel Ruelas M.D. Ons et: 08/29/2022 Chronic atrial fibrillation Mariel mcfarlane M.D. Onset: 08/29/2022 Ectasia of thoracic aorta Mariel Ruelas M.D. Onset: 08/29/2022 Idiopathic peripheral neuropathy Mariel Fraire M.D. Onset: 08/29/2022 Osteoporosis Mariel Ruelas M.D. Ons et: 02/26/2023 Long-term current use of sys temic steroid Mariel Ruelas M.D. Onset: 02/26/2023 Social History Type Date Description Comments Sex Unknown Lives With Alone Work Status Retired Tobacco Use Start: Unknown Never Smoked Cigarettes ETOH Use Denies alcohol use Allergies and adverse reactions Active Allergies Criticality Reaction Severity Comments Date Cipro Unable to assess criticality 08/29/2022 Penicillins Unable to assess criticality 08/29/2022 Percocet Unable to assess criticality 08/29/2022 Medications Active Medications SIG Qnty Indications Order ing Provider Date Levothyroxine [id number] Tablets 1 by mouth every day 90tabs Mariel Ruelas M.D. 09/03/2024 Vitamin D-325mcg (1000 Ut) Capsules 3 by mouth every day Mariel Ruelas M.D. 09/16/2023 Citracal Calcium+D Slow [id number] -Unit Tablets ER 24HR 1 by mouth every day Mariel Ruelas M.D. Idetihcpyv5dx Tablets Take 1 Tablets By Mouth Every Day Unknown Aspirin 8181mg Tablets DR 1 by mouth every day Mariel Ruelas M.D. Clopidogrel Samffniyg67jb Tablets 1 by mouth every day 90tabs Mariel Ruelas M.D. Amiodarone IVT138vc Tablets 1/2 tablet by mouth every day Unknown Ropinirole HCL0.25mg Tablets take 1 tablet by mouth at bedtime Unknown Fbpnbzhyx06cz Tablets 1 1/2 tabs by mouth bid Unknown Bnzkrkytrhnqcc01iv Tablets 1/2 by mouth every day Unknown Pantoprazole Anflsq11re Tablets DR 1 by mouth every day Unknown Qphn424nx Capsules 1 bid Jessi Ruelas M.D. Vitamin R98218fpm Tablets 1 by mouth every day Mariel Ruelas M.D. Multivitamin Adults 50+Adlt 50+ Tablets 1 by mouth every day Mariel Ruelas M.D. Hwpbhhstln5fu Tablets Take 1 Tablet By Mouth Every Day David Bryan M.D. Mycophenolate Nwilorf585qw Tablets Take 2 Tablets By Mouth Twice A Day Irvin Watts Tamsulosin HCL0.4mg Capsules Take 2 Capsules By Mouth AT Bedtime Unknown Oxycodone HCL5mg Tablets Take 1 Tablet (5 MG) By Mouth Every 6 Hours as Needed David Bryan M.D. Montelukast Wnuvrw80ru Tablets 1 by mouth every day Irvin Watts Vital Signs Date Vital Result Comment 09/02/2024 8:40am BP Systolic 126 mmHg BP Diastolic 68 mmHg Heart Rate 74 /min Height 74 inches 6'2 Weight 228.00 lb per pt/wheelchai r BMI (Body Mass Index) 29.3 kg/m2 Results Test Acquired Date Facility Test Result H/L Range Note TSH Rfx on Abnormal to Free T4 09/02/2024 [facility] TSH RFX On Abnormal To Free T4 9.830 uIU/mL High 0.450-4 .500 T4,Free (Direct) 1.38 ng/dL 0.82 -1. 77 Basic Metabolic Panel (8) 07/03/2024 [facility] Glucose 109 mg/dL High 70-99 BUN 18 mg/dL 8-27 Creatinine 1.34 mg/dL High 0.76-1. 27 eGFR 53 mL/min/1.73 Low >59 BUN/Creatinine Ratio 13 10-24 Sodium 143 mmol/L 134-144 Potassium 4.5 mmol/L 3.5-5.2 Chloride 101 mmol/L 96-106 Carbon Dioxide, Total 28 mmol/L 20-29 Calcium 9.4 mg/dL 8.6-10. 2 Vitamin D, 25-Hydroxy, Total 07/03/2024 [facility] Vitamin D, 25-Hydroxy, Total 43 ng/mL 1 N-Telopeptide, Urine 07/03/2024 [facility] N-Telopeptide 114 nmolBCE Not Estab. Creatinine, Urine 91.9 mg/dL Not Estab. N-Telo/Creat. Ratio 14 nMBCE/mMCr 0-62 Interpretive Guide: See Comment: 2 Albumin 07/03/2024 [facility] Albumin 4.0 g/dL 3.7-4.7 PTH, Intact 07/03/2024 [facility] PTH, Intact 49 pg/mL 15-65 N-Telopeptide, Urine 03/04/2024 [facility] N-Telopeptide, Urine <pending> Vitamin D 25 Hydroxy Esoterix 03/04/2024 [facility] Vitamin D 25 Hydroxy Esoterix <pending> PTH, Intact 03/04/2024 [facility] PTH, Intact <pending> Albumin 03/04/2024 [facility] Albumin <pending> Magnesium 08/30/2023 [facility] Magnesium 2.1 mg/dL (1.6-2. 3) Free T4 08/30/2023 [facility] Free T4 1.28 ng/dL (0.70-1 .80) PTH, Intact 08/30/2023 [facility] PTH, Intact 122 pg/mL High (15-65) Albumin 08/30/2023 [facility] Albumin 3.8 GM/DL (3.4-4. 8) Calcium 08/30/2023 [facility] Calcium 8.8 mg/dL (8.6-10 .5) TSH With Reflex To FT4 08/30/2023 [facility] TSH With Reflex To FT4 4.92 uIU/mL High (0.4-4. 2) Immunofixation Urine 06/06/2023 [facility] Urine Immunofix Normal immunofix <SEE NOTE> 3 Protein, Urine MG/DL 62 mg/dL High (0-12) Free Testosterone 06/06/2023 [facility] Testosterone, Total, LC/MS 227.1 Low 4 Percent Free Testosterone 1.98 5 Free Testosterone, Equilibrium 4.50 Low 6 BUN 04/17/2023 [facility] BUN 20 mg/dL (8-23) Albumin 04/17/2023 [facility] Albumin 4.2 GM/DL (3.4-4. 8) Calcium 04/17/2023 [facility] Calcium 9.8 mg/dL (8.6-10 .5) Creatinine 04/17/2023 [facility] Creatinine 1.1 mg/dL (0.7-1. 2) Estimated GFR Creatinine 70 ML/MIN/1.73 M2 7 Free Testosterone 03/18/2023 [facility] Free Testosterone <pending> Immunofixation Urine 03/09/2023 [facility] Urine Immunofix Pending Protein, Urine MG/DL 49 mg/dL High (0-12) [id number] Test not perform <SEE NOTE> 8 Unsaturated Iron Binding Capacity 03/09/2023 [facility] Unsaturated Iron Binding Capacity Duplicate order <SEE NOTE> 9 Iron & Tibc 03/09/2023 [facility] Iron 36 g /dL Low (45-160 ) Unsaturated Iro n Binding [place] 237 g /dL (110-37 0) Est T. Iron Bin d Capacity 273 g /dL (155-53 0) % Iron Saturation 13 % Low (20-55 ) Immunofixation Serum 03/09/2023 [facility] Immunoglobulin Igg 822 mg/dL (700-16 00) Immunoglobulin Iga 90 mg/dL (70-400 ) Immunoglobulin Igm 16 mg/dL Low (40-230 ) Immunofix Normal immunofix <SEE NOTE> 10 Ferritin 03/09/2023 [facility] Ferritin 114 NG/ML (16-294 ) Testosterone 03/09/2023 [facility] Testosterone 233 ng/dL Low (280-80 0) Testosterone,Free & Total (Males > 15Yr) 03/09/2023 [facility] [id number] Test not perform <SEE NOTE> 11 Testosterone Total (Males > 15 Yrs) 03/07/2023 [facility] Testosterone Total (Males > 15 Yrs) <pending> Unsaturated Iron Binding Capacity 03/07/2023 [facility] Unsaturated Iron Binding Capacity <pending> Ferritin 03/07/2023 [facility] Ferritin <pending> Comprehensive Metabolic Panl 02/26/2023 [facility] Glucose 111 mg/dL High (70-99) BUN 17 mg/dL (8-23) Creatinine 1.0 mg/dL (0.7-1. 2) Sodium 144 mmol/L (133-14 5) Potassium 5.0 mmol/L (3.6-5. 2) Chloride 102 mmol/L (98-107 ) Bicarbonate 33 mmol/L High (22-29) Anion Gap 9 (4-17) Albumin 4.4 GM/DL (3.4-4. 8) Calcium 9.6 mg/dL (8.6-10 .5) Bilirubin,Total 0.6 mg/dL (0-1.2 ) Total Protein 6.2 GM/DL (6.2-8. 2) Ag Ratio 2.4 Ast 16 U/L (0-40) Alk Phos 77 U/L (40-129 ) Alt 22 U/L (0-41) Estimated GFR Creatinine 75 ML/MIN/1.73 M2 12 Complete Abc With Diff 02/26/2023 [facility] WBC 10.4 K/MM3 (4.0-11 .0) RBC 4.04 M/MM3 Low (4.70-6 .10) HGB 12.1 GM/DL Low (13.7-1 7.1) HCT 40.6 % (40.5-5 0.0) MCV 100.5 FL High (80.0-9 4.0) MCH 30.0 pg (27.0-3 4.0) MCHC 29.8 g/dL Low (33.0-3 7.0) PLT 170 K/MM3 (150-46 0) RDW-SD 57.8 FL High (<47.0) MPV 10.5 FL (9.4-12 .4) Automated NRBC 0.0 #/100WBC'S Abs. NRBC 0.0 K/MM3 Neut # 8.7 K/MM3 High (1.3-7. 0) Lymph # 0.9 K/MM3 (0.8-3. 1) Rolette# 0.6 K/MM3 (0.4-1. 3) Eo # 0.1 K/MM3 (0.0-0. 4) Baso # 0.0 K/MM3 (0.0-0. 1) Abs. Imm Gran 0.1 K/MM3 Neut 84.1 % High (44-76) Lymph 8.5 % Low (15-43) Monocyte 5.8 % (4.5-10 .5) Eo 0.5 % (0-6) Baso 0.3 % (0-2) Imm Gran 0.8 % TSH With Reflex To FT4 02/26/2023 [facility] TSH With Reflex To FT4 1.89 uIU/mL (0.4-4. 2) PTH, Intact 02/26/2023 [facility] PTH, Intact 72 pg/mL High (15-65) 25Oh Vitamin D 02/26/2023 [facility] 25Oh Vitamin D 31.9 NG/ML (20-50) 1 Reference Range: All Ages: Target levels 30 - 100 2 The N-telopeptide an d Creatinine are used to calculate the N-telo/Creat. Ratio which is referred to as NTx . Suggested guidelines for the clinical use of NTx are as follows: 1. Menopausal Women not on Hormone Replacement Therapy (HRT): Women with a baseline NTx value >38 are at significant risk for a decrease in bone mineral density (BMD) after 1 year compared to women on HRT. The probability of a decline in BMD increases with NTx value as follows: (1): Baseline NTx Probability of Decrease in BMD 18- 38 1.4 p=0.28 38- 51 2.5 p=0.03 51- 67 3.8 p=0.0006 67-188 17.3 p=0.0001 2. Menopausal Women Receiving Antiresorptive Therapy: The probability that treatment is effective after three months is increased when the measured NTx value is <or=38 nM BCE/mM RAILROAD DINING CAR STEWARD/STEWARDESS, or NTx has decreased >or=30% from baseline.[1] 3. Patients with Paget's Disease of Bone: The probability that treatment is effective after one month is increased when the measured NTx value is within the reference range, or NTx has decreased >or=30% from baseline.[2] 1. Zoraida CH, Kulkarni NH, Nate GS, et al. Am J Med, 102:29-37,1997. (1):M757, 1996. 2. Bone H, Gretel J, et al. J Bone Min Res.11(1):M757,1996 3 Interpreted by Jaime Garcia MD 4 Reference range: 264 .0 to 916.0 Unit: ng/dL (NOTE) This [facility] LC/MS-MS method is currently certified by the CDC Hormone Standardization Program (HoSt). Adult male reference interval is based on a population of healthy nonobese males (BMI <30) between 19 and 39 years old. Peg et.al. JCEM 2017,102;8797-6678. PMID: 83861033. This test was developed and its performance characteristics determined by [facility]. It has not been cleared or approved by the Food and Drug Administration. 5 Reference range: 1.5 0 to 4.20 Unit: % 6 Reference range: 5.0 0 to 21.00 Unit: ng/dL Test performed at [address] [address] 7 Creatinine based est imated glomerular filtration (eGFR) in adults is calculated using the National Kidney Foundation recommended 2020 CKD-EPI equation. Estimates GFR from serum creatinine, age and sex. 8 Test not performed,q uantity insufficient 9 Duplicate order canc elled via interface 10 Normal immunofixatio n pattern (No monoclonal protein detected) Interpreted by Solis Garcia MD 11 Test not performed, specimen stability 12 Creatinine based est imated glomerular filtration (eGFR) in adults is calculated using the National Kidney Foundation recommended 2020 CKD-EPI equation. Estimates GFR from serum creatinine, age and sex. Procedures Date Code Description Status 09/02/2024 30593 Collection Of Venous Blood B y Venipuncture Completed 08/30/2023 98382 Collection Of Venous Blood B y Venipuncture Completed 02/26/2023 46616 Collection Of Venous Blood B y Venipuncture Completed Medical Devices Description No Information Available Encounters Type Date Location Provider Dx Diagnosis Office Visit 09/02/2024 8:45a Main Office Mariel Ruelas M.D. E03.9 Hypothyroidism, unspecified E21.3 Hyperparathyroidism, unspecified M81.0 Age-related osteopor osis w/o current pathological fracture Z79.52 care home (current) use of systemic steroids J84.10 Pulmonary fibrosis, unspecified Assessments Date Code Description Provider 09/02/2024 E03.9 Hypothyroidism, unspecified Mariel Ruelas M.D. 09/02/2024 E21.3 Hyperparathyroidism, unspeci fied Mariel Ruelas M.D. 09/02/2024 M81.0 Age-related oste oporosis without current pathological fracture Mariel Ruelas M.D. 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 09/02/2024 J84.10 Pulmonary fibrosis, unspecif ied Mariel Ruelas M.D. Plan of Treatment Future Appointment(s):* 12/11/2024 2:30 pm - Mariel Ruelas M.D. at Main Office 08/29/2022 - Mariel Ruelas M.D.* M80.00xA Age-related osteoporosis with current pathological fracture, unspecified site, initial encounter for fracture * J84.10 Pulmonary fibrosis, unspecified * Z92.241 Personal history of systemic steroid therapy Functional Status Description No Information Available Mental Status Description No Information Available Referrals Description No Information Available
--- OUTSIDE RECORDS SUMMARY | 2024-09-23 09:38 | XMS_ITS | Encounter Summary ---
Author Organization [facility] Address [address] [place] [address] Care Team Providers Care Penology Teacher Name Role Phone David Bryan MD Primary Care Provider [phone] Reason for Visit * Reason Comments Consult NPV-left foot pain * Consultation (Routine) - Closed Specialty Diagnoses / Procedures Referred By Contact Referred To Contact Podiatry / Orthopaedic Surgery Diagnoses Left foot pain Procedures REF90 - AMB Referral to Podiatry. David Bryan MD [address] [place] [address] Phone: tel: fax: Fareed Posadas DPM [address] [address] Phone: tel: fax: Referral ID Status Reason Start Date Expiration Date V isits Requested Visits Authorized [id number] Closed Specialty Services Required 04/29/2024 04/29/2025 1 1 Encounter Details Date Type Department Care Team (Late st Contact Info) Description 09/09/2024 10:15 AM EDT Office Visit Orthopedic Surgery - [place] [address] [phone] Fareed Posadas DPM [address] [address] Dermatophytosis of nail (Primary Dx); Tinea pedis of both feet; Pain in toe of right foot; Pain in toe of left foot; Neuritis; Difficulty walking [R26.2] Social History Tobacco Use Types Packs/Day Years [...] Sign Reading Time Taken Comments Blood Pressure - - Pulse - - Temperature - - Respiratory Rate - - Oxygen Saturation - - Inhaled Oxygen Concentration - - Weight 104 kg (230 lb) 09/09/2024 9:46 AM EDT Height 188 cm (6' 2.02 ) 09/09/2024 9:46 AM EDT Body Mass Index 29.52 09/09/2024 9:46 AM EDT documented in this encounter Ordered Prescriptions Prescription Sig Dispense Quantity Refills Last Filled Start Date End Date miconazole nitrate 2 % aerosol,spray Apply topically 1 (one) time each day. 133 g 2 09/09/2024 documented in this encounter Progress Notes * Fareed Posadas DPM - 09/09/2024 10:15 AM EDT Last PCP visit:Referring MD: Estrada Yarbrough MD 04/29/2024 IDENTIFIER: Logan is a 84 y.o. year old male who presents for consultation. CC: Foot pain HPI: Patient presented for evaluation of his feet he presents today in a motorized wheelchair suffers from acute heart failure cardiomyopathy pulmonary fibrosis notes that he has thick fungal nails and skin specifically taking care of himself does not they are itchy achy bothersome discomfort is rated as a 5 out of 10 on a visual analog scale ROS: GENERAL: Pt denies nausea, fever, vomiting, chills, or shortness of breath. Pt in NAD. CARDIOLOGY: pt denies chest pain, palpitations LUNGS: pt denies shortness of breath MUSCULOSKELETAL: See HPI, otherwise no joint pain or swelling, back pain, or muscle pain. 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 (CMS/HCC) Cardiomyopathy (CMS/HCC) Chest pain Compression of lumbar vertebra (CMS/HCC) Dilated aortic root (CMS/HCC) Essential hypertension Fatigue Hyperlipidemia Hypothyroidism Palpitations Paroxysmal atrial fibrillation (CMS/HCC) Peripheral edema Pulmonary fibrosis (CMS/HCC) SOB (shortness of breath) SOCIAL HISTORY: Social History Tobacco Use Smoking status: Never Smokeless tobacco: Never Substance Use Topics Alcohol use: Never ACTIVE MEDICATIONS: Outpatient Medications Marked as Taking for the 09/09/24 encounter (Office Visit) with Fareed Ray DPM Medication Sig Dispense Refill amiodarone (PACERONE) 100 mg tablet Take 1 tablet (100 mg total) by mouth 1 (one) time each day. aspirin 81 mg EC tablet Take 1 tablet (81 mg total) by mouth 1 (one) time each day. calcium citrate (CALCITRATE) 950 mg (200 mg elemental calcium) tablet Take 1 tablet (950 mg total) by [...] mouth daily. Take 1 tab Tue, Wed, Th, Fri, Sat, Sun, 2 tabs on Mon [...] ORAL) Take 1 Tablet by mouth daily. ALLERGIES: Allergies Allergen Reactions Ciprofloxacin Ciprofloxacin-Hydrocortisone PHYSICAL EXAM: Visit Vitals Ht 1.88 m (74.02 ) Wt 104 kg (230 lb) BMI 29.52 kg/m?? Smoking Status Never BSA 2.3 m?? PODIATRIC EXAMINATION: GENERAL: Patient appears well nourished, with NAD. VASCULAR: Dorsalis pedis pulses are 1/4 bilaterally and Posterior tibial pulses are 1/4 bilaterally. Capillary filling time within normal limits the digits. No pallor on elevation or rubor on dependency. No varicosities. Denies rest pain or claudication pain. NEUROLOGICAL: Sharp/dull sensation intact, protective sensation intact 10/10 with 5.07 semmes reny bilaterally, vibratory sensation with tuning fork intact to the tibial tuberosity. ORTHOPEDIC: Good muscle strength 5/5 of all flexors and extensors. Dorsi flexion of ankle ,10 degrees, plantar flexion WNL. No muscle atrophy. Presents in a motorized wheelchair DERMATOLOGICAL:. Toenails: Left Toenail(s) 1-5: Crumbling upon debridement, subungual debris, discoloration, dystrophy, elongation, mycotic appearance, onychomycosis, pain and thickening. Right Toenail(s) 1-5: Crumbling upon debridement, subungual debris, discoloration, dystrophy, elongation, mycotic appearance, onychomycosis, pain and thickening. Annular scaling bilateral feet moccasin distribution Skin thinning texture shiny appearance diffuse hyperpigmentation bilaterally pedal hair decreased . BIOMECHANICS: Ankle ROM WNL, STJ ROM wnl, MTJ ROM wnl, 1st MPJ ROM wnl. IMAGING: IMPRESSION: 1. Dermatophytosis of nail 2. Tinea pedis of both feet 3. Pain in toe of right foot 4. Pain in toe of left foot 5. Neuritis PLAN: Pt was seen and examined, history reviewed. Treatment options for fungal nails discussed and reviewed given patient's physical limitations would recommend topical aerosol spray Miconazole aerosol spray prescribed Oral antifungals were discussed patient like to hold off on at this time Treatment options for neuritis were discussed reviewed Follow-up in 1 to 3 months Debridement of mycotic toenails 6-10: Verbal informed consent was obtained from the patient. Greater than 6 nails were aseptically debrided in thickness and length with nail nippers Fareed Posadas DPM documented in this encounter Plan of Treatment Upcoming Encounters Date Type Department Care Team (Late st Contact Info) Description 12/10/2024 1:00 PM EDT Office Visit Orthopedic Surgery [facility] [address] [phone] Fareed Posadas DPM [address] [address] 12/12/2024 10:40 AM EDT Office Visit [facility] [address] [phone] Hi Bradshaw NP [address] [place] [address] 01/26/2025 1:40 PM EDT Office Visit [facility] 154 300 [facility] 154 [place] [phone] Christina Estes PA 300 [facility] [address] [place] [address] documented as of this encounter Visit Diagnoses Diagnosis Dermatophytosis of nail- Primary Tinea pedis of both feet Pain in toe of right foot Pain in soft tissues of limb Pain in toe of left foot Pain in soft tissues of limb Neuritis Unspecified neuralgia, neuritis, and radiculitis Difficulty walking [R26.2] Difficulty in walking documented in this encounter Care Teams Penology Teacher Relationship Specialty Start Date End Date David Bryan MD [address] [facility] [address] [place], [place] PCP - General Community Relations Advisor 09/25/14 documented as of this encounter
--- OUTSIDE RECORDS SUMMARY | 2024-09-23 09:38 | XMS_ITS | Clinical Summary ---
Author Organization [facility] Address [address] [place] [address] Care Team Providers Care Cellular Tower Climber Name Role Phone David Bryan MD Primary Care Provider [phone] Allergies Active Allergy Reactions Criticality Noted Date Comments Ciprofloxacin 03/16/2017 Heart race Oxycodone-Acetaminophen 03/16/2017 hallucinations Penicillins Hives 03/16/2017 Medications Medication Sig Dispensed Refills Start Date End Date Status dilTIAZem (DILACOR XR) 240 MG 24 hr capsule Take 240 mg by mouth. 0 Active hydroCHLOROthiazide (HYDRODIURIL) tablet 12.5 mg Take 12.5 mg by mouth. 0 Active levothyroxine (SYNTHROID, LEVOXYL) tablet 125 mcg Take 125 mcg by mouth. 0 Active meloxicam (MOBIC) 7.5 MG tablet Take 7.5 mg by mouth daily. 0 01/31/2019 Active azithromycin (ZITHROMAX Z-KRISTEN) 250 MG tablet Take 2 tablets together, the first day. Then one tablet daily for four more days. 6 tablet 0 01/03/2020 Active Family History Medical History Relation Name Comments Diverticulitis Brother Bari Anxiety disorder Daughter Debbie Fibromyalgia Daughter Debbie Lung cancer Father 84 Pneumonia Father 84 Ulcers Father 84 Aneurysm Mother 60 Hypertension Mother 60 No Sig Med Hx Son Isai MACK Relation Name Status Comments Brother Bari Alive Daughter Debbie Alive Father 84 Mother 60 Sister Age 8 Son Isai MACK Alive Social History Tobacco Use Types Packs/Day Years Used Date Smoking Tobacco: Never Smokeless Tobacco: Never Alcohol Use Standard Drinks/Week Comments No 0 (1 standard drink = 0.6 oz pur e alcohol) Sex and Gender Information Value Date Recorded Sex Assigned at Male 02/24/2019 1:33 PM EDT Gender Identity Male 02/24/2019 1:33 PM EDT Sexual Orientation Straight 02/24/2019 1: 33 PM EDT Job Start Date Occupation Industry Not on file Not on file Not on file Last Filed Vital Signs Vital Sign Reading Time Taken Comments Blood Pressure 164/78 01/03/2020 1:10 PM EDT Pulse 71 01/03/2020 1:10 PM EDT Temperature 36.7 ??C (98 ??F) 01/03/2020 1:10 PM EDT Respiratory Rate 18 01/03/2020 1:10 PM EDT Oxygen Saturation 94% 01/03/2020 1:10 PM EDT Inhaled Oxygen Concentration - - Weight 122.5 kg (270 lb) 01/03/2020 12:01 PM EDT Height 188 cm (6' 2 ) 01/03/2020 12:01 PM EDT Body Mass Index 34.67 01/03/2020 12:01 PM EDT Plan of Treatment Health Maintenance Due Date Last Done Comments COVID-19 Vaccine (#1) 1941 Depression Screening 1953 Preventative Health Evaluation 1959 Shingrix-Zoster Vaccine (1 of 2) 1991 Fall Risk Assessment 2006 Pneumococcal Vaccine (1 of 1 - PCV) 2006 RSV Adult > 60+ Yrs or Pregn ant (1 - 1-dose 75+ series) 2016 BMI Counseling 02/25/2020 02/24/2019 Influenza Vaccine (#1) 2024 DTap / Tdap / Td (2 - Td or Tdap) 09/01/2024 015 Hepatitis B Vaccines Aged Out No long er eligible based on patient's age to complete this topic RSV Ped < 20 months Aged Out No longe r eligible based on patient's age to complete this topic Care Teams Cellular Tower Climber Relationship Specialty Start Date End Date David Bryan MD [address] [place], [place] [id number] PCP - General Slunk Skin Curer 01/03/20
--- OUTSIDE RECORDS SUMMARY | 2024-09-23 09:38 | XMS_ITS | Clinical Summary ---
Author Organization [facility] Address [address] [address] Care Team Providers Care Bet Taker Name Role Phone Unavailable Primary Care Provider Unavailabl e Social History Tobacco Use Types Packs/Day Years Used Date Smoking Tobacco: Never Assessed Sex and Gender Information Value Date Recorded Sex Assigned at Not on file Legal Sex Male 3:21 PM EST Gender Identity Not on file Sexual Orientation Not on file Plan of Treatment Health Maintenance Due Date Last Done Comments Pneumococcal Vaccine: 65+ Ye ars (1 of 1 - PCV) 2006 Influenza Vaccine (#1) 2024 Hepatitis B Vaccine Aged Out No longe r eligible based on patient's age to complete [place] [id number] MEDIC[address] [facility] [place] [id number] MEDICARE [facility]
== END 2024-09-23 08:54 | disposition home or self-care (01) ==
LOC: HO.CT 08:53
PROVIDERS: PCP Internal Medicine; Visit Provider Hospitalist
DX: J84.112 Idiopathic pulmonary fibrosis (principal); J96.11 Chronic respiratory failure with hypoxia; J84.9 Interstitial pulmonary disease, unspecified
CPT/HCPCS: 71046; 71250

== ENCOUNTER → 2024-09-23 08:57 | Outpatient (BNV) | payer MEDICARE, SELFPAY | PROVIDERS: PCP Internal Medicine; Visit Provider Radiology Diagnostic Radiology | DX: J84.112 Idiopathic pulmonary fibrosis (principal) | CPT/HCPCS: 71046 ==

== ENCOUNTER 2024-10-06 10:32 | Outpatient (AMB) | payer MEDICARE, SELFPAY ==
[2024-10-06 10:40] VITALS: BP 96/54; PULSE 81; O2SAT 95; BMI 30.7
--- NOTE | 2024-10-06 10:40 | MHC.OFFVIS ---
Vital Signs 10/06/24 10:40 Height 6 ft 2 in Weight 239 lb 3.225 oz BMI 30.7 BP 96/54 L Blood Pressure Location Lt brachial Position Sitting Pulse 81 Pulse Source Pulse Oximeter Pulse Oximetry (%) 95 Oxygen Delivery Method Room Air Intake Visit Reasons: COPD Allergies Cipro Allergy (Mild, Uncoded 10/06/24 10:45) Tachycardia Percocet Allergy (Mild, Uncoded 10/06/24 10:45) Hallucinations HPI Comments Details: The patient is a 84-year-old gentleman with a known history high blood pressure in addition to hypothyroidism who apparently was in his usual state health until for the last several months when he has noticed progressive shortness of breath. He had been going to a transition move from his house to a condominium and why he was doing that he was exposed to inorganic dust in the form of cement. In addition to that he worked at [employer] for about 20 years of his life and prior to that he worked that [employer] with significant exposures well and she could be. Ultimately he was not complaining of any respiratory symptoms. More recently with increasing shortness of breath sensation he was evaluated by Cardiology. He had a stress test that was negative for any heart involvement but did have an episode of hypoxia when he dropped to 83%. After that he did get his own oximeter and he has been checking his oxygen and appears to be maintaining around 92-94%. However, he did have a CT scan of the abdomen back in June 2018 for his underlying renal calculi it was noted that he had evidence of pulmonary fibrosis which is concerning. Therefore due to his persistent symptoms and his hypoxia and abnormal CT scan of the abdomen he was referred to Pulmonary. We did review his blood work and was all relatively negative for any evidence of any connective tissue conditions or inflammatory conditions that can result in the interstitial lung disease. He also underwent for CT scan of the chest demonstrating mainly chronic changes with reticular changes and honeycombing as well as some traction bronchiectasis. However, he also has some degree of subacute or acute pneumonitis occurring and his left lower lung zone. Seems to have responded well to the trelegy, I will send him a generic at this time. In the meantime based on the findings demonstrating mainly chronic interstitial changes I am not sure that a surgical biopsy will really private branch exchange repairer at this time. It is my suspicion that he may have a component of idiopathic pulmonary fibrosis based on the fact that he has peripheral raise reticular changes with some honeycombing primarily at the bases. The area that is less consistent is this like ground-glass area in the left base but this may be a different entity altogether. Therefore treating for idiopathic pulmonary fibrosis will be reasonable at this time. Based on the findings on his CT scan I suspect that he has a component of idiopathic pulmonary fibrosis. Continue the prednisone at low dose for now. Will discuss the use of anti- fibrotic therapy during the next visit. 09/12/2022 the patient is here for a pulmonary follow-up visit. He is here with his son. His back pain has been getting a little better P which is reassuring. He did follow-up with Neurosurgery and did not recommend surgery and went home because they did not feel that it would provide significant improvement and not worked risk. Therefore his continue with physical therapy and he has had some improvement. He may have to see a pain specialist to see about other alternative therapies for pain control. In the meantime from a respiratory status the patient had been doing well. Continues with his current medications further interstitial lung disease with adequate effect. Recently his was admitted to the hospital with human metapneumovirus and other complications. He is concerned because now he has been exposed to this virus. On examination he does have increased wheezing he has been coughing some. Therefore will go ahead and keep him on the prednisone and also start him on nebulized therapy to see if we can provide some relief. If the patient needs to increase the prednisone he can do so. In also placement antibiotics to avoid a postviral bacterial infection. The patient is also having issues with his atrial fibrillation worse now back with rapid ventricular response to some degree. He is considering cardioversion again. The patient is aware that that is okay once he heals from his ongoing respiratory issue. The patient is aware that he should avoid amiodarone as an antiarrhythmic agent and he can consider other agents. 11/14/2022 the patient is here for a pulmonary follow-up visit. He is grieving the loss of his . He has lost a good amount of weight. He has had some lower extremity edema. He still atrial fibrillation. The patient was being evaluated by Cardiology regarding possibility cardioversion. But 1st, he is going to have a echocardiogram and also more diuresis. He continues on the CellCept with good response. He is also on the Ofev. No significant adverse effects. He is using his respiratory therapy. He had called and we had prescribed some doxycycline for a lower respiratory infection. The patient is getting better although he still having some wheezing. We did provide him ipratropium nebulized solution addition to Xopenex in order for him to provide bronchodilation with less irritation to his cardiac issues. The patient has stopped using it because he was losing his voice. I did request that he can start using it daily because he does have some wheezing on exam. If the patient is no better if she gets worse she is to call the office for further recommendations. 03/20/2023 the patient is here for a pulmonary follow-up visit. Overall he is doing well from a respiratory status. He continues uses oxygen with good effect. He is able to take a break during the daytime. We did talk about maintaining the oxygen between 92 and 96%. Sometimes he less ago a little higher in explained to him that his body does better when he maintains it around the mid 90s. The patient has been continue his anti fibrotic therapy and immunomodulator therapy with good response. His cardiac condition appears to be a more stable. He has back pain also more stable. Now he has a motor wheelchair that does help him move around. He is also participating in some degree of pulmonary rehabilitation which is reassuring. It appears that the pulmonary fibrosis is stable and not significantly progressing. Plan to follow-up in the spring with pulmonary function studies. Also to note he has been using the nebulizer machine. Although he has been noticing some hoarseness and raspiness of his voice. He denies any significant wheezing any longer. Therefore we can just use the breathing treatments as needed. 06/12/2023 the patient is here for a pulmonary follow-up visit. Recently he was in the hospital. Apparently he was in atrial fibrillation with rapid ventricular response requiring cardioversion. Unfortunately cardioversion did not work and ultimately required a repeat cardioversion. His course was complicated with an infection in the bladder and also potentially of the lung. He was treated with antibiotics. His oxygen requirements any change dramatically. He was also found to be anemic. I do not have those results. He had a very difficult time any still recovering from that. We did look at his CT scan of the the abdomen that he had during the stay. Did have some evidence of interstitial lung disease. All difficult to assess the progression of the disease at this time. He continues on the Ofev in continues on the prednisone 10 mg daily. His breathing is better so he can back off on the nebulizer treatments at this time. He is having some daytime drowsiness. His [place] score is elevated 24. With a history cardiovascular disease she will benefit from a sleep study. Will request an in-lab sleep study at this time. Will have him return after the sleep study and also will request a CT scan of the chest to reassess the degree of progression of his underlying pulmonary fibrosis. Also, the patient did bring some papers for his advanced directives. She wishes to be a DNR DNI. We did talk about the meaning of that as far as cardioversions are concerned. He would like to hold off on further cardioversions at this time. 09/18/2023 the patient is here for a pulmonary follow-up visit. The patient overall has been doing better. The patient feels like he has in a better state of health. He has been using his oxygen. However, he has been having issues with significant amount of nosebleeds and therefore has not been able to use the pulse oxygen via his nose. He has been just pulling in his mouth. He did try an OxyMask but unfortunately this will only can work with continues oxygen. He has been using humidifiers for the house. We did talk about saline gel to try to help decrease the irritation to the nose. In addition to that he has been using Afrin. I did caution not to use it more than 5 days at a time. The patient did have a CT scan of the chest which I personally reviewed demonstrating no significant changes in his underlying interstitial lung disease and pulmonary fibrosis. The patient also had pulmonary function studies demonstrating a severe restriction consistent with pulmonary fibrosis in a very severe diffusion impairment. Therefore, the patient understands that in view of having this severe restrictive lung disease due to the fibrosis he is high risk for any anesthesia or surgical procedures. He has been scheduled to undergo a Watchman procedure because the significant epistaxis not tolerating the Eliquis which I believe is a good option for him. Ideally if excuse be done without general anesthesia with a would be ideal. Again, the patient does have severe lung disease in therefore the severe risk for perioperative pulmonary complications which typically include; atelectasis, worsening hypoxia, pneumonia, prolonged mechanical ventilation and . Therefore prior to providing a surgical option all conservative approach is should be attempted. 03/24/2024 the patient is here for a pulmonary follow-up visit. Overall he is doing okay. Last week he did have COVID he did take the antiviral therapy in did help him. Subsequently after that he started developing a cough which is congested in nature with yellowish phlegm. Moderate severity. Although he is feeling otherwise okay. He is concerned about pneumonia though. He has not had any fevers or chills. He also feels some sinus congestion. Will go ahead and treat him for postviral bacterial bronchitis at this time. Does have some crackles on examination but is his baseline. The patient also has had issues with atrial fibrillation. He feels is related to his frequent diarrhea from the Ofev. He had to stop the office for about 3 weeks while the diarrhea was significant he was having the atrial fibrillation. He is still on the amiodarone as well. We did talk about that he can always consider decreasing the Ofev dose to the lower dose of 100 mg if he continues to have issues. He will let us know. Patient should also be weaned off the amiodarone or hopefully go to the lowest dose of 100 mg. He will talk to his qa test analyst soon. With his ongoing interstitial lung disease it will be dangerous to keep him on amiodarone. He did tolerate the Watchman procedure well. No evidence of any complications from it. He is still on the blood thinners until I believe a few weeks from now where he can then subsequently stop it. 07/03/2024 the patient is here for a pulmonary follow-up visit. The patient overall has been doing well. He has been on 5 mg of prednisone tolerating that well. He is concerned because he is having significant tooth decay related to the prednisone. He would like to decrease the prednisone if possible. He is also having diarrhea from the Ofev so he is taking a break. He is currently taking the lower dose although 5th right now. He did have a barium swallow which demonstrated some degree of dysmotility and did did mention the pulmonary fibrosis. Will go ahead and request a repeat x-ray this time. His last CT scan was back in 09/19/2023 demonstrating the pulmonary fibrosis. Will have him repeat his CT scan closer to the next appointment in the springtime. Hopefully we can decrease him to a lower dose of prednisone if not completely. He will continue with his other medications. He knows to go back on the Of whenever possible. In addition to that he is using the oxygen with good effect. The oxygen tanks work better for him than the POC. Although he is going on a trip soon and he is going to need a POC. Will see if his DME company that none him 1 for few weeks. The patient is doing very well from a cardiac standpoint and he is motivated and will look to be starting pulmonary rehabilitation at [facility] soon. 10/06/2024 the patient is here for pulmonary follow-up visit. He has been noticing increasing dyspnea on exertion. Moderate severity. Sometimes when he has a pulmonary rehabilitation and he is on the treadmill he quickly desaturates down to 70% with increasing shortness of breath. He has been noting that he is having to use the oxygen more often. He has also been having more chest congestion. Coughing more phlegm. He started using his Xopenex along with ipratropium several times a day to try to help him with chest congestion. He is getting a lot of dry mouth. I did ask him to refrain from the ipratropium to minimize the dry mouth and also because it may cause the increased consistency of mucus in the phlegm. The patient also did have a CT scan of the chest which we personally reviewed and compared to a CAT scan he had back in 2022. Although there is mild progression seems to be a prolonged period of time between couple years or so of his disease state and therefore the progression appears to be slow. I do believe that is increased oxygen requirements have because the significant mucus plugging and less due to the interstitial changes. He does continue to go to pulmonary rehabilitation does a lot better with the bike. I did encourage him to pursue continued to do a day over capacity with a bike and to strengthen his legs in order to be able to provide better support so when he is able to use a treadmill at that point will be feeling better. He continues use oxygen with good effect. The oxygen therapy has been affecting beneficial. Will plan to follow-up in 3 months since he his progress. He does have awaiting to go to in October. Therefore will start him on doxycycline for the chest congestion. I would rather do azithromycin but is currently on amiodarone. We will start twice a day and then decreased down to daily. If it is something that is helping prophylactically will keep him on it until also the wedding. Same thing with the prednisone continue with current dose of prednisone to after the wedding. [facility] Medical History (Updated 10/06/24 @ 21:43 by Irvin Watts MD) Back pain Depression Insomnia PLMD (periodic limb movement disorder) COPD (chronic obstructive pulmonary disease) Atrial fibrillation Immunosuppression due to chronic steroid use IPF (idiopathic pulmonary fibrosis) Chronic respiratory failure ILD (interstitial lung disease) Social History Patient Tobacco Use Status: Never used Tobacco Review of Systems Const Reports daytime sleepiness, Reports difficulty sleeping, Reports fatigue, Denies fever(s), Reports headache(s), Denies night sweats and Reports snoring ENT Denies change in voice, Reports headache(s), Denies lip swelling, Reports epistaxis, Denies mouth pain, Reports nasal congestion, Reports nasal discharge and Denies tongue swelling Card Denies chest pain and Reports dyspnea on exertion Resp Reports change in phlegm color, Reports chest congestion, Reports cough, Reports dyspnea on exertion, Reports snoring and Reports wheezing GI Denies abdominal pain Musc Reports back pain and Reports radiating pain into limb Neuro Denies Neuro-related abnormal movements, Reports headache(s) and Reports radicular pain Psych Reports as per HPI, Reports anxiety and Reports depression Endo Reports fatigue Devendra/Lymph Denies easy bleeding and Denies lymphadenopathy Aller/Immun Denies lip swelling, Denies tongue swelling and Reports wheezing Physical Exam Vital Signs: Last Vital Signs Pulse 81 10/06/24 10:40 BP 96/54 L 10/06/24 10:40 Pulse Ox 95 10/06/24 10:40 Oxygen Delivery Method Room Air 10/06/24 10:40 BMI result Body Mass Index 30.7 Const General: alert Neck Neck: Yes normal visual inspection, Yes full ROM and Yes no lymphadenopathy Chest Chest palpation & inspection: normal inspection of the chest Resp Auscultation: wheezes and diminished lung sounds Cardio Rate: regular rate Rhythm: regular rhythm Heart sounds: S1 normal heart sound present and S2 normal heart sound present GI Palpation (GI): Soft to palpation and nontender Auscultation: normal bowel sounds Skin General skin exam: rashes and/or lesions noted Assessment & Plan Assessment & Plan (1) Bronchitis: Code(s): J40 - Bronchitis, not specified as acute or chronic Category: Medical (2) COPD (chronic obstructive pulmonary disease): Code(s): J44.9 - Chronic obstructive pulmonary disease, unspecified Category: Medical Qualifiers: COPD type: COPD with acute exacerbation Qualified Code(s): J44.1 - Chronic obstructive pulmonary disease with (acute) exacerbation (3) Immunosuppression due to chronic steroid use: Code(s): D84.821 - Immunodeficiency due to drugs; T38.0X5A - Adverse effect of glucocorticoids and synthetic analogues, initial encounter; Z79.52 - assistant terminal manager (current) use of systemic steroids Category: Medical (4) IPF (idiopathic pulmonary fibrosis): Comment: some slow progression Code(s): J84.112 - Idiopathic pulmonary fibrosis Category: Medical (5) Chronic respiratory failure: Code(s): J96.10 - Chronic respiratory failure, unspecified whether with hypoxia or hypercapnia Category: Medical Qualifiers: Respiratory failure complication: hypoxia Qualified Code(s): J96.11 - Chronic respiratory failure with hypoxia (6) ILD (interstitial lung disease): Comment: probable idiopathic pulmonary fibrosis. Currently being treated for the possibility of chronic hyper sensitivity pneumonitis. Appears to have a progressive process Code(s): J84.9 - Interstitial pulmonary disease, unspecified Category: Medical (7) KATHARINE (obstructive sleep apnea): Code(s): G47.33 - Obstructive sleep apnea (adult) (pediatric) Category: Medical (8) PLMD (periodic limb movement disorder): Code(s): G47.61 - Periodic limb movement disorder Category: Medical (9) Insomnia: Code(s): G47.00 - Insomnia, unspecified Category: Medical Qualifiers: Insomnia type: primary Qualified Code(s): F51.01 - Primary insomnia (10) Back pain: Code(s): M54.9 - Dorsalgia, unspecified Category: Medical Qualifiers: Back pain laterality: unspecified Back pain location: back pain in unspecified location Chronicity: chronic Qualified Code(s): M54.9 - Dorsalgia, unspecified; G89.29 - Other chronic pain (11) Atrial fibrillation: Code(s): I48.91 - Unspecified atrial fibrillation Category: Medical Qualifiers: Atrial fibrillation type: paroxysmal Qualified Code(s): I48.0 - Paroxysmal atrial fibrillation Plan continue prednisone 5mg hold Ipratropium nebs BID, 1-2 times a day as needed continue Xopenex BID as needed NANCY as needed start Doxycycline BID x 14 days, then daily Continue oxygen supplementation 2l/pulse Amiodarone, lowest must effective dose continue Mycophenalate 2gm/day continue OFEV 150mg BID cont pulmonary rehab at [facility] F/U 3-4 months Medications: New doxycycline monohydrate 100 mg PO BID 42 tabs 0RF 21 days Coding Level of Care Code Est Pt Level 5 (57490) Complex EM visit Add On G2211 Diagnoses Bronchitis J40 Chronic obstructive pulmonary disease with acute exacerbation J44.1 COPD type: COPD with acute exacerbation Immunosuppression due to chronic steroid use D84.821; T38.0X5A; Z79.52 IPF (idiopathic pulmonary fibrosis) J84.112 Chronic respiratory failure with hypoxia J96.11 Respiratory failure complication: hypoxia ILD (interstitial lung disease) J84.9 KATHARINE (obstructive sleep apnea) G47.33 PLMD (periodic limb movement disorder) G47.61 Primary insomnia F51.01 Insomnia type: primary Chronic back pain, unspecified back location, unspecified back pain laterality M54.9; G89.29 Back pain laterality: unspecified Back pain location: back pain in unspecified location Chronicity: chronic Paroxysmal atrial fibrillation I48.0 Atrial fibrillation type: paroxysmal Time Spent (min) 35
--- OUTSIDE RECORDS SUMMARY | 2024-10-06 12:25 | XMS_ITS ---
Author Name [facility] Organization Unknown History of Medication Use Medication Directions Dispensed Refills Start Date End Date Stat mycophenolate (CELLCEPT) 500 mg tablet Take 2 tablets (1,000 mg total) by mouth 2 (two) times a day. active vitamin B complex/folic acid (B COMPLEX 1, WITH FOLIC ACID, ORAL) Take 1 Tablet by mouth daily. active ketorolac (TORADOL) injection 15 mg 15 mg, intramuscular, Once, On 08/11/24 at 1533, For 1 dose 08/11/2024 completed calcium citrate (CALCITRATE) 950 mg (200 mg elemental calcium) tablet Take 1 tablet (950 mg total) by mouth 1 (one) time each day. active spironolactone (ALDACTONE) 25 mg tablet Take 0.5 tablets (12.5 mg total) by mouth 1 (one) time each day. 06/06/2024 active mirtazapine (REMERON) 15 mg tablet Take 1 Tablet by mouth at bedtime. active levothyroxine (SYNTHROID, LEVOTHROID) 50 mcg tablet Take 50 mcg by mouth daily. Take 1 tab Tue, Wed, Th, Fri, Sat, Sun, 2 tabs on Mon active amiodarone (PACERONE) 100 mg tablet Take 1 tablet (100 mg total) by mouth 1 (one) time each day. active tamsulosin (FLOMAX) 0.4 mg 24 hr capsule 2 capsules (0.8 mg total) 1 (one) time each day. active lisinopriL (PRINIVIL,ZESTRIL) 5 mg tablet Take 1 tablet (5 mg total) by mouth 1 (one) time each day. active oxyCODONE (ROXICODONE) 5 mg immediate release tablet Take 1 tablet (5 mg total) by mouth every 6 (six) hours if needed. active levalbuterol (XOPENEX) 0.31 mg/3 mL nebulizer solution Take 1 Ampule by nebulization every 4 hours as needed. active montelukast (SINGULAIR) 10 mg tablet Take 1 tablet (10 mg total) by mouth 1 (one) time each day. active azithromycin (ZITHROMAX) 500 mg tablet 1 TAB ONE HOUR PRIOR TO DENTAL PROCEDURES UNTIL 04/02/24 S/P WATCHMAN 02/15/2024 active aspirin 81 mg EC tablet Take 1 tablet (81 mg total) by mouth 1 (one) time each day. 01/21/2024 active cetirizine (ZyrTEC) 10 mg tablet Take 1 tablet (10 mg total) by mouth 1 (one) time each day. active torsemide (DEMADEX) 20 mg tablet TAKE 1.5 TABLETS BY MOUTH 2 TIMES DAILY. 04/29/2024 active pantoprazole (PROTONIX) 20 mg EC tablet Take 1 tablet (20 mg total) by mouth 1 (one) time each day. active rOPINIRole (REQUIP) 0.25 mg tablet Take 1 Tablet by mouth 3 times daily. active cholecalciferol (Vitamin D3) 5,000 Units tablet Take 1 tablet (5,000 Units total) by mouth 1 (one) time each day. active predniSONE (DELTASONE) 5 mg tablet Take 2 tablets (10 mg total) by mouth 1 (one) time each day. active ipratropium-albuteroL (DUONEB) 0.5-2.5 mg/3 mL nebulizer solution Inhale 3 mL into the lungs 4 times daily. active Problems Problem Status Onset Date Problem Type Date of Resolution Source SOB (shortness of breath) active 2022-11-08 [facility]Act [facility] Hypothyroidism active 2021-03-04 ProblemAct [facility] Fatigue active 2024-02-27 ProblemAct [facility] Cardiomyopathy active 2023-06-15 ProblemAct [facility] Palpitations active 2022-06-08 ProblemAct [facility] Pulmonary fibrosis active 2021-03-04 ProblemAct [facility] Chest wall muscle strain, initial encounter active EncounterDiagnosisAct [facility] Essential hypertension active 2021-03-04 ProblemAct [facility] Chest pain active 2022-06-08 ProblemAct [facility] H Acute heart failure with preserved ejection fraction active 2022-11-08 ProblemAct [facility] Hyperlipidemia active 2022-06-08 Problem[address] [facility] Peripheral edema active 2023-06-15 ProblemAct [facility] Paroxysmal atrial fibrillation active 2021-01-19 ProblemAct [facility] Dilated aortic root active 2021-03-04 ProblemAct [facility] Compression of lumbar vertebra active 2022-06-08 ProblemAct [facility] Encounters Encounter Type Encounter Reason Primary Diagnosis Location Date Emergency L shoulder pain Strain of muscle and tendon of front wall of thorax, initial encounter [facility] 08/11/2024 Care Team Organization Name Specialty Phone Email Start Date End Da te [facility] David Bryan Primary Care 08/21/2024 [facility] David Bryan Primary Care 08/11/2024
--- OUTSIDE RECORDS SUMMARY | 2024-10-06 12:25 | XMS_ITS | Data Portability ---
Author Organization ABHIJIT Duncan s, [address] Address [address] [place] [address] Care Team Providers Care Title Department Manager Name Role Phone ITZ PALACIOS Primary Care Provider Assessment No assessment recorded. Plan of Treatment Reminders Order Date Submit Date Provider Last Modified By Organization Details Last Modified Time Details Appointments None recorded. Lab None recorded. Referral None recorded. Procedures None recorded. Surgeries None recorded. Imaging XR, foot, 3 or more view 2023 024 [facility], [address] [place] [address], [address], 12:10:40 Medication Orders colchicine 0.6 mg tablet 2023 024 [id number], [address] [place], [address], 4 11:46:01 cephalexin 500 mg capsule 2023 024 [id number] [address] [place], [address], 4 11:04:07 Bactrim DS 800 mg-160 mg tablet 2023 024 [id number] [address] [place], [address], 4 11:03:59 Patient TargetsNo targets recorded. Patient Instructions Encounter Date Encounter Id Patient Instructions Last Modified By Organization Details Last Modified Time 10/17/2023 [id number] Bursitis is pain and swelling of the [...] your doctor if you can take an qqmq-kya-ovqhdoe medicine. Do not take two or more [...] Pus draining from the area. A fever. Not available 10/17/2023 13:41:58 01/05/2024 [id number] gout: care instructions Not available 01/05/2024 11:45:57 learning about rice (rest, ice, compression, and elevation) Not available 01/05/2024 11:25:58 Reason for Referral None Reported. Results Created Date Observation Date Name Description Value Unit Range Abnormal Flag Note LastModifiedBy Organization Detail LastModifiedTime 01/05/20 24 01/05/2024 XR, foot, 3 or more view No observ ation record ed. [email or web address] [facility] [address] [place], [address], 01/05/2024 12:13:29 01/05/20 24 XR, foot, 3 or more view No observ ation record ed. [email or web address] [facility] [address] [place], [address], 01/05/2024 14:42:23 Result Notes None recorded. 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 Active 2023 Christina Bricault null, PA - [facility] 4 11:12:51 Gastroesophage al reflux disease 732068740 Active 2023 Christina Bricault null, PA - [facility] 4 11:12:47 Atrial fibrillation 64791480 Active 2023 Christina Bricault null, PA - [facility] 4 11:12:42 Hypothyroidism 80508630 Active 2023 Christina Bricault null, PA - [facility] 4 11:13:10 Hypertensive disorder 20161034 Active 2023 Christina Bricault null, PA - [facility] 4 11:13:43 Prostatitis 8613646 Active 2023 Christina Bricault null, PA - [facility] 4 11:13:59 Edema 495798295 Active 2023 Christina Bricault null, PA - [facility] 4 11:14:23 Problem Notes None recorded. Procedures Surgical History None recorded. Imaging Results Imaging Date Name Status LastModified by Organiz ation Details LastModified Time 01/05/2024 XR, foot, 3 or more view completed [email or web address] [facility] [address] [place], [address], 01/05/2024 12:13:29 01/05/2024 XR, foot, 3 or more view completed [facility] [address] [place], [address], 01/05/2024 14:42:23 Procedure Notes None recorded. Medical Equipment None Reported. Allergies Allergen ID Allergen Name Allergen Category Reaction Reaction Severity Criticality Documentation Date Start Date Code Code System Note Provider Name and Address Organization Details Recorded Time 363617 Cipro medicatio n Not available Not available [facility] 10/17/202396176 3 RxNorm ABHIJIT Mullins - [facility] [...] Updated DateTime 4 187.96 cm 28.2 kg/m2 51868.3 2 g 97 % 97 % 83 /min 18 /min 97.8 [degF] 6 110 mm[Hg] 69 mm[Hg] Lisa Negron PA - [facility] 13:09:55 Date Recorded Body height Body mass index (BMI) Body weight Pain severity - 0-10 verbal numeric rating [Score] - Reported Respiratory rate Oxygen saturation Oxygen saturation in Arterial blood by Pulse oximetry Heart rate Systolic blood pressure Diastolic blood pressure Provider Name and Address Organization Details Last Updated DateTime 4 187.96 cm 28.2 kg/m2 69388.3 2 g 8 24 /min 95 % 95 % 91 /min 112 mm[Hg] 71 mm[Hg] Christina Mckeon [facility] 11:18:53 Social History Question Answer Notes LastModified by Organizat ion Details LastModified Time Tobacco Smoking Status Never Smoker Lisa Negron null, PA - [facility] 10/17/2023 13:09:07 What Is Your Level [...] SNOMED-CT Code Diagnosis ICD10 Code Diagnosis Note [id number] [address] [facility] [address] [facility] [address] 11/22/2015 16:47:55 11/22/2015 18:10:10 [id number] [facility]IT [facility] [address] [facility] [address] [facility] [address] 10/17/2023 12:22:25 10/17/2023 13:53:44 Bursitis of olecranon of right elbow 0998325849 63535 M70.21 Infected bursa 222746401 M71.10 [id number] ABHIJIT Wasserman [address] [facility] [address] [place] [address] 01/05/2024 10:46:26 01/05/2024 11:47:54 Pain in left foot 2483445539 22092 M79.672 Gout 19411350 M10.9 Based on your presentati on and [...] Loss of sensation Thank you for using [employer] , please don't hesitate to reach out [...] [place] Isai Ford [id number] Isai Ford 11/22/2015 2 [place] [id number] Isai Ford [id number] Isai Ford 10/17/2023 1 [place] Isai Ford [id number] 58 Isai Ford 10/17/2023 2 [place] [id number] Isai Ford Sr [id number] Isai Gifford Logan 01/05/2024 1 [place] Isai Ford [id number] 58 Isai Gifford Logan 01/05/2024 2 [place] [id number] Isai Ford [id number] Isai Ford Notes Date Note Type Note Provider Name and Address Organization Details Recorded Time 10/17/2023 text/html Upper Arm Elbow Injury UCReported bypatient.Notes:[age] y.o male pt presents with right elbow swelling with local erythema that started a few days ago. Pt has full flexion and extension. He denies pain or fever. ABHIJIT ABREU [address] [place], [address], [facility] 10/17/2023 16:02:39 01/05/2024 text/html 83 y/o male here with L lateral foot pain starting yesterday, no injury. Concerned for fracture given level of pain and h/o chronic steroid use ABHIJIT Wasserman [address] [place], [address], [place] [employer] [facility] 01/05/2024 11:52:36
--- OUTSIDE RECORDS SUMMARY | 2024-10-06 12:26 | XMS_ITS | Clinical Summary ---
Author Organization [facility] Facility Address [address] [address] Care Team Providers Care Call Center Professional Name Role Phone Unavailable Primary Care Provider [...] of 1 - PCV) 2006 Influenza Vaccine (Season Ended) 2025 Hepatitis B Vaccine Aged Out No longe r eligible based on patient's age to complete [place] [address] MEDICARE [facility] [place] [address] MEDICARE [facility]
--- OUTSIDE RECORDS SUMMARY | 2024-10-06 12:26 | XMS_ITS | Clinical Summary ---
Author Organization [address] [place] [address] [place] [address] [place] [address] Phone Care Team Providers Care Hot Metal Mixer Operator Helper Name Role Phone David Bryan MD Primary Care Provider [phone] Allergies Active Allergy Reactions Criticality Noted Date [...] - Echocardiogram during May 2023 admission at [facility] in the midst of urosepsis showed [...] option. 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 Mckee at [facility] cardiology in August 2021 when flecainide was initiated - Cardioverted on flecainide with maintenance of sinus rhythm for almost a year - Admitted back to [facility] in July 2022 with A-fib with [...] course complicated by urosepsis and bacteremia requiring [facility] admission and FELIX on top of that - In the setting of septic shock, he went back into A-fib with RVR-was subsequently cardioverted again on 05/29/2023 and has remained in sinus rhythm ever since Last Assessment & Plan: Status post Watchman procedure. He will be due for his 45-day ANYA at [facility] in a couple months. He is [...] AM EDT Office Visit Orthopedic Surgery - [place] [address] [facility] [address] [place] [address] Fareed Posadas, DPM Dermatophytosis of nail (Primary Dx); Tinea pedis of both feet; Pain in toe of right foot; Pain in toe of left foot; Neuritis; Difficulty walking [R26.2] 08/11/2024 1:40 PM EST - 08/11/2024 5:02 PM EST Emergency [facility] [address] [place] [address] Tarik Yee MD Chest wall muscle strain, initial encounter (Primary Dx) Discharge Disposition: Home or Self Care 07/29/2024 1:40 PM EST Office Visit [facility] [address] [place] [address] Emma Andrea MD Chest pain, unspecified type (Primary Dx); Paroxysmal atrial fibrillation (CMS/HCC); Presence of Watchman left atrial appendage closure device; Epistaxis from Last 3 Months Medical History Medical [...] PM EDT Office Visit Orthopedic Surgery - [place] [address] [address] Fareed Posadas, DPM [address] [address] 12/12/2024 10:40 AM EDT Office Visit [facility] 154 300 [facility] 154 [place] [phone] Hi Bradshaw NP [address] [place] [address] 01/26/2025 1:40 PM EDT Office Visit [facility] [address] [phone] Christina Estes PA [address] [address] Health Maintenance Due Date Last Done Comments DTaP,Tdap,and Td Vaccines (1 - Tdap) 1959 Zoster Vaccines (1 of 2) 1959 RSV Immunization Adult Patients (1 - 1-dose 75+ series) 2016 Depression Screening 06/10/2022 Falls Risk Assessment 06/10/2022 Medicare Annual Wellness Visit 06/10/2022 Social Influencers of Health Screening 06/10/2022 COVID-19 Vaccine ( season) 2024 02/19/2021, 08/30/2020, 07/30/2020 Influenza Vaccine (#1) 2024 3, 03/23/2021, 05/18/2020 Hypertension/CHF/CAD Annual BMP Blood Test [...] Watchman left atrial appendage closure device Epistaxis BASIC METABOLIC PANEL Routine 06/12/2024 10:52 AM [...] on 08/11/2024 4:40 PM. Workstation Name - [id number] -------- FINAL REPORT -------- Dictated By: Yonis Parra Dictated Date: 08/11/2024 16:31 ET Assigned Physician: Yonis Parra Reviewed and Electronically Signed By: Yonis Parra Signed Date: 08/11/2024 16:40 ET Workstation ID: [id number] Transcribed By: Self Edit Transcribed Date: 08/11/2024 [...] Parra on 08/11/2024 4:40 PM.Workstation Name - [id number] -------- FINAL REPORT -------- Dictated By: Yonis Parra Dictated Date: 08/11/2024 16:31 ET Assigned Physician: Yonis Parra Reviewed and Electronically Signed By: Yonis Parra Signed Date: 08/11/2024 16:40 ET Workstation ID: [id number] Transcribed By: Self Edit Transcribed Date: 08/11/2024 16:31 ET us Tarik Yee MD IMG XR PROCEDURES Final Res ult * ECG 12 lead (07/29/2024 2:20 PM EST) Ventricular Rate ECG 70 BPM GEMUSE Atrial Rate 70 BPM GEMUSE P-R Interval 178 ms GEMUSE QRS Duration 88 ms GEMUSE Q-T Interval 400 ms GEMUSE QTc 432 ms GEMUSE P Wave [place] 19 degrees GEMUSE R [place] -23 degrees GEMUSE T [place] 19 degrees GEMUSE ECG Interpretation Normal sinus rhythm When compared with ECG of 12-JUN-2024 09:34, No significant change was found Confirmed by DIONICIO ANDREA ([id number]) on 08/07/2024 5:17:33 AM GEMUSE 07/29/2024 2:20 PM EST 08/07/2024 5:17 AM EST us Emma Andrea MD ECG ORDERABLES Final Resu lt GEMUSE * (ABNORMAL) Lipid panel with reflex to direct LDL (06/12/2024 10:52 AM EST) Pathologist [facility] Cholesterol 256(H) 0 - 200 mg/dL LAB CHEMISTRY METHOD 06/12/2024 12:34 PM EST [facility] Triglycerides 171(H) 0 - 150 mg/dL LAB CHEMISTRY METHOD 06/12/2024 12:34 PM EST [facility] HDL 92 >=40 mg/dL LAB CHEMISTRY METHOD 06/12/2024 12:34 PM EST [facility] LDL Calculated 130(H) 0 - 100 mg/dL LAB CHEMISTRY METHOD 06/12/2024 12:34 PM [facility] VLDL Cholesterol Balde 34.2 mg/dL LAB CHEMISTRY METHOD 06/12/2024 12:34 PM [facility] Non HDL Chol. (LDL+VLDL) 164(H) <145 mg/dL LAB CHEMISTRY METHOD 06/12/2024 12:34 PM [facility] Chol/HDL Ratio 2.8 0.0 - 4.4 LAB CHEMISTRY METHOD 06/12/2024 12:34 PM [facility] Blood Venous blood specimen / Unknown Venipuncture / Unknown 06/12/2024 10:52 AM EST 06/12/2024 11:32 AM EST us Sarah Jhaveri MD LAB BLOOD ORDERABLES Final Resu lt [facility] [address] [place] [address], * (ABNORMAL) Basic metabolic panel (06/12/2024 10:52 AM EST) Sodium 141 133 - 145 mmol/L LAB CHEMISTRY METHOD 06/12/2024 12:31 PM [facility] Potassium 4.4 3.5 - 5.5 mmol/L LAB CHEMISTRY METHOD 06/12/2024 12:31 PM [facility] Chloride 104 96 - 110 mmol/L LAB CHEMISTRY METHOD 06/12/2024 12:31 PM [facility] CO2 30 21 - 32 mmol/L LAB CHEMISTRY METHOD 06/12/2024 12:31 PM [facility] Anion Gap 7 3 - 11 LAB CHEMISTRY METHOD 06/12/2024 12:31 PM [facility] Glucose 103(H) 70 - 100 mg/dL LAB CHEMISTRY METHOD 06/12/2024 12:31 PM [facility] BUN 24 5 - 25 mg/dL LAB CHEMISTRY METHOD 06/12/2024 12:31 PM [facility] Creatinine 1.55(H) 0.70 - 1.30 mg/dL LAB CHEMISTRY METHOD 06/12/2024 12:31 PM [facility] eGFR 44(L) >=60 mL/min/1. 73m2 LAB CHEMISTRY METHOD 06/12/2024 12:31 PM [facility] Comment:Calculation based on the??Chronic Kidney Disease Epidemiology Collaboration (CKD-EPI) equation refit??without adjustment for race. BUN/Creatinine Ratio 15.5 LAB CHEMISTRY METHOD 06/12/2024 12:31 PM [facility] Calcium 9.4 8.5 - 10.5 mg/dL LAB CHEMISTRY METHOD 06/12/2024 12:31 PM [facility] Blood Venous blood specimen / Unknown Venipuncture / Unknown 06/12/2024 10:52 AM EST 06/12/2024 11:32 AM EST us Sarah Jhaveri MD LAB BLOOD ORDERABLES Final Resu lt [facility] [address] [place] [address], from Last 3 Months or Most Recently Relevant to Health Maintenance Insurance MEDICARE [facility] Care Teams Hot Metal Mixer Operator Helper Relationship Specialty Start Date End Date David Bryan MD [address] PCP - General Judge 09/25/14
--- OUTSIDE RECORDS SUMMARY | 2024-10-06 12:26 | XMS_ITS | Clinical Summary ---
Author Organization [facility] Address [address] [place] [address] Care Team Providers Care Serger Name Role Phone David Bryan MD Primary Care Provider [phone] Allergies Active Allergy Reactions Criticality Noted Date [...] Bari Anxiety disorder Daughter Debbie Fibromyalgia Daughter Edbbie Lung cancer Father 84 Pneumonia Father 84 [...] age to complete this topic Care Teams Serger Relationship Specialty Start Date End Date David Bryan MD [address] [place], [place] [id number] PCP - General Copy And Print Associate 01/03/20
--- OUTSIDE RECORDS SUMMARY | 2024-10-06 12:26 | XMS_ITS | Continuity of Care Document ---
Author Organization [facility] [address] [facility] [address] [place] [address] Phone [phone] Care Team Providers Care Marketing Ambassador Name Role Phone David Bryan M.D. Care Team Information Body Design Checker [phone] Problems Active Problems Provider Date Essential hypertension Ngozi Orozco Onset: 08/29/2022 Hypothyroidism Mariel Ruelas M.D. Ons et: 08/29/2022 Osteoarthritis Mariel Ruelas M.D. Ons et: 08/29/2022 Prostatism Mariel [...] Qnty Indications Order ing Provider Date Levothyroxine [id number] Tablets 1 by mouth every day 90tabs Mariel Ruelas M.D. 09/03/2024 Vitamin D-325mcg (1000 Ut) Capsules 3 by mouth every day Mariel Ruelas M.D. 09/16/2023 Citracal Calcium+D Slow [id number] -Unit Tablets ER 24HR 1 by mouth every day Mariel Ruelas M.D. Jsukuearvf7ow Tablets Take 1 Tablets By Mouth Every Day Unknown Aspirin 8181mg Tablets DR 1 by mouth every day Mariel Ruelas M.D. Clopidogrel Ehhtdknba74fe Tablets 1 by mouth every day 90tabs Mariel Ruelas M.D. Amiodarone WPF438he Tablets 1/2 tablet by mouth every day Unknown Ropinirole HCL0.25mg Tablets take 1 tablet by mouth at bedtime Unknown Khplzvzbv19rz Tablets 1 1/2 tabs by mouth bid Unknown Qycsbogrsuhogz86ap Tablets 1/2 by mouth every day Unknown Pantoprazole Rwlvdt83bf Tablets DR 1 by mouth every day Unknown Dhzs215nf Capsules 1 bid Jessi Ruelas M.D. Vitamin [id number] Tablets 1 by mouth every day Mariel Ruelas M.D. Multivitamin Adults 50+Adlt 50+ Tablets 1 by mouth every day Mariel Ruelas M.D. Zrwvvqqjnq4ob Tablets Take 1 Tablet By Mouth Every Day David Bryan M.D. Mycophenolate Yxjxzig776cd Tablets Take 2 Tablets By Mouth Twice A Day Irvin Watts Tamsulosin HCL0.4mg Capsules Take 2 Capsules By Mouth AT Bedtime Unknown Oxycodone HCL5mg Tablets Take 1 Tablet (5 MG) By Mouth Every 6 Hours as Needed David Bryan M.D. Montelukast Leplzt83da Tablets 1 by mouth every day Irvin [...] Albumin 03/04/2024 [facility] Albumin <pending> Magnesium 08/30/2023 [facility] Magnesium 2.1 mg/dL (1.6-2. 3) Free T4 08/30/2023 [facility] Free T4 1.28 ng/dL (0.70-1 .80) PTH, Intact 08/30/2023 [facility] PTH, Intact 122 pg/mL High (15-65) Albumin 08/30/2023 [facility] Albumin 3.8 GM/DL (3.4-4. 8) Calcium 08/30/2023 [facility] Calcium 8.8 mg/dL (8.6-10 .5) TSH With Reflex To FT4 08/30/2023 [facility] TSH With Reflex To FT4 4.92 uIU/mL High (0.4-4. 2) Immunofixation Urine 06/06/2023 [facility] Urine Immunofix Normal immunofix <SEE NOTE> 3 Protein, Urine MG/DL 62 mg/dL High (0-12) Free Testosterone 06/06/2023 [facility] Testosterone, Total, LC/MS 227.1 Low 4 Percent Free Testosterone 1.98 5 Free Testosterone, Equilibrium 4.50 Low 6 BUN 04/17/2023 [facility] BUN 20 mg/dL (8-23) Albumin 04/17/2023 [facility] Albumin 4.2 GM/DL (3.4-4. 8) Calcium 04/17/2023 [facility] Calcium 9.8 mg/dL (8.6-10 .5) Creatinine 04/17/2023 [facility] Creatinine 1.1 mg/dL (0.7-1. 2) Estimated GFR Creatinine 70 ML/MIN/1.73 M2 7 Free Testosterone 03/18/2023 [facility] Free Testosterone <pending> Immunofixation Urine 03/09/2023 [facility] Urine Immunofix Pending Protein, Urine MG/DL 49 mg/dL High (0-12) 76306 Test not perform <SEE NOTE> 8 Unsaturated Iron Binding Capacity 03/09/2023 [facility] Unsaturated Iron Binding Capacity Duplicate order <SEE NOTE> 9 Iron & Tibc 03/09/2023 [facility] Iron 36 g /dL Low (45-160 ) Unsaturated Iro n Binding [place] 237 g /dL (110-37 0) Est T. Iron Bin d Capacity 273 g /dL (155-53 0) % Iron Saturation 13 % Low (20-55 ) Immunofixation Serum 03/09/2023 [facility] Immunoglobulin Igg 822 mg/dL (700-16 00) Immunoglobulin Iga 90 mg/dL (70-400 ) Immunoglobulin Igm 16 mg/dL Low (40-230 ) Immunofix Normal immunofix <SEE NOTE> 10 Ferritin 03/09/2023 [facility] Ferritin 114 NG/ML (16-294 ) Testosterone 03/09/2023 [facility] Testosterone 233 ng/dL Low (280-80 0) Testosterone,Free & Total (Males > 15Yr) 03/09/2023 [facility] [address]856 Test not perform <SEE NOTE> 11 Testosterone Total (Males > 15 Yrs) 03/07/2023 [facility] Testosterone Total (Males > 15 Yrs) <pending> Unsaturated Iron Binding Capacity 03/07/2023 [facility] Unsaturated Iron Binding Capacity <pending> Ferritin 03/07/2023 [facility] Ferritin <pending> Comprehensive Metabolic Panl 02/26/2023 [facility] Glucose 111 mg/dL High [...] M2 12 Complete Abc With Diff 02/26/2023 [facility] WBC 10.4 K/MM3 (4.0-11 [...] 0) Lymph # 0.9 K/MM3 (0.8-3. 1) [place]# 0.6 K/MM3 (0.4-1. 3) Eo # 0.1 K/MM3 (0.0-0. 4) Baso # 0.0 K/MM3 (0.0-0. 1) Abs. Imm Gran 0.1 K/MM3 Neut 84.1 % High (44-76) Lymph 8.5 % Low (15-43) Monocyte 5.8 % (4.5-10 .5) Eo 0.5 % (0-6) Baso 0.3 % (0-2) Imm Gran 0.8 % TSH With Reflex To FT4 02/26/2023 [facility] TSH With Reflex To FT4 1.89 uIU/mL (0.4-4. 2) PTH, Intact 02/26/2023 [facility] PTH, Intact 72 pg/mL High (15-65) 25Oh Vitamin D 02/26/2023 [facility] 25Oh Vitamin D 31.9 NG/ML [...] measured NTx value is <or=38 nM BCE/mM PERSONNEL ARBITRATOR, or NTx has decreased >or=30% from baseline.[1] [...] .0 to 916.0 Unit: ng/dL (NOTE) This [facility] LC/MS-MS method is currently certified by the CDC Hormone Standardization Program (HoSt). Adult male reference interval is based on a population of healthy nonobese males (BMI <30) between 19 and 39 years old. Peg et.al. JCEM 2017,102;5004-6785. PMID: 00554749. This test was developed and its performance characteristics determined by [employer]. It has not been cleared or approved by the Food and Drug Administration. 5 Reference range: 1.5 0 to 4.20 Unit: % 6 Reference range: 5.0 0 to 21.00 Unit: ng/dL Test performed at [address] [id number] 7 Creatinine based est imated glomerular filtration [...] sex. Procedures Date Code Description Status 09/02/2024 26465 Collection Of Venous Blood B y Venipuncture Completed 08/30/2023 96397 Collection Of Venous Blood B y Venipuncture Completed 02/26/2023 60391 Collection Of Venous Blood B y Venipuncture Completed Medical Devices Description No Information Available Encounters Type Date Location Provider Dx Diagnosis Office Visit 09/02/2024 8:45a Main Office Mariel Ruelas M.D. 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 09/02/2024 E21.3 Hyperparathyroidism, unspeci fied Mariel Ruelas M.D. 09/02/2024 M81.0 Age-related oste oporosis without current pathological fracture Mariel Ruelas M.D. 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
== END 2024-10-06 11:15 | disposition home or self-care (01) ==
LOC: HO.HPS 10:33
PROVIDERS: PCP Internal Medicine; Visit Provider Hospitalist
DX: J40 Bronchitis, not specified as acute or chronic (principal); D84.821 Immunodeficiency due to drugs; T38.0X5A Adverse effect of glucocorticoids and synthetic analogues, initial encounter; Z79.52 Long term (current) use of systemic steroids; J84.112 Idiopathic pulmonary fibrosis; J96.11 Chronic respiratory failure with hypoxia; J84.9 Interstitial pulmonary disease, unspecified; G47.33 Obstructive sleep apnea (adult) (pediatric); G47.61 Periodic limb movement disorder; F51.01 Primary insomnia; M54.9 Dorsalgia, unspecified; G89.29 Other chronic pain; I48.0 Paroxysmal atrial fibrillation
CPT/HCPCS: 99214; G2211

== ENCOUNTER → 2024-10-06 10:32 | Outpatient (BNVA) | payer MEDICARE, SELFPAY | PROVIDERS: PCP Internal Medicine; Visit Provider Hospitalist | DX: J44.1 Chronic obstructive pulmonary disease with (acute) exacerbation (principal); J40 Bronchitis, not specified as acute or chronic; J84.112 Idiopathic pulmonary fibrosis; J96.11 Chronic respiratory failure with hypoxia; J84.9 Interstitial pulmonary disease, unspecified; D84.821 Immunodeficiency due to drugs; I48.0 Paroxysmal atrial fibrillation; G47.33 Obstructive sleep apnea (adult) (pediatric); G47.61 Periodic limb movement disorder; F51.01 Primary insomnia; M54.9 Dorsalgia, unspecified; G89.29 Other chronic pain; T38.0X5A Adverse effect of glucocorticoids and synthetic analogues, initial encounter; X58.XXXA Exposure to other specified factors, initial encounter; Z79.52 Long term (current) use of systemic steroids; Z99.81 Dependence on supplemental oxygen | CPT/HCPCS: 99212 ==

== ENCOUNTER 2025-01-12 13:59 | Outpatient (AMB) | payer MEDICARE, SELFPAY ==
[2025-01-12 14:03] VITALS: BP 108/50; PULSE 75; O2SAT 91
--- NOTE | 2025-01-12 14:03 | A.OFFVIS_ITS ---
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 He had been going to a transition move from his house to a condominium and why he was doing that he was exposed to inorganic dust in the form of cement. In addition to that he worked at [employer] for about 20 years of his life and prior to that he worked that [employer] with significant exposures well and she could be. Ultimately he was not complaining of any respiratory symptoms. More recently with increasing shortness of breath sensation he was evaluated by Cardiology. He had a stress test that was negative for any heart involvement but did have an episode of hypoxia when he dropped to 83%. After that he did get his own oximeter and he has been checking his oxygen and appears to be maintaining around 92-94%. However, he did have a CT scan of the abdomen back in June 2018 for his underlying renal calculi it was noted that he had evidence of pulmonary fibrosis which is concerning. Therefore due to his persistent symptoms and his hypoxia and abnormal CT scan of the abdomen he was referred to Pulmonary. We did review his blood work and was all relatively negative for any evidence of any connective tissue conditions or inflammatory conditions that can result in the interstitial lung disease. He also underwent for CT scan of the chest demonstrating mainly chronic changes with reticular changes and honeycombing as well as some traction bronchiectasis. However, he also has some degree of subacute or acute pneumonitis occurring and his left lower lung zone. Seems to have responded well to the trelegy, I will send him a generic at this time. In the meantime based on the findings demonstrating mainly chronic interstitial changes I am not sure that a surgical biopsy will really private branch exchange repairer at this time. It is my suspicion that he may have a component of idiopathic pulmonary fibrosis based on the fact that he has peripheral raise reticular changes with some honeycombing primarily at the bases. The area that is less consistent is this like ground-glass area in the left base but this may be a different entity altogether. Therefore treating for idiopathic pulmonary fibrosis will be reasonable at this time. Based on the findings on his CT scan I suspect that he has a component of idiopathic pulmonary fibrosis. Continue the prednisone at low dose for now. Will discuss the use of anti- fibrotic therapy during the next visit. 09/12/2022 the patient is here for a pulmonary follow-up visit. He is here with his son. His back pain has been getting a little better P which is reassuring. He did follow-up with Neurosurgery and did not recommend surgery and went home because they did not feel that it would provide significant improvement and not worked risk. Therefore his continue with physical therapy and he has had some improvement. He may have to see a pain specialist to see about other alternative therapies for pain control. In the meantime from a respiratory status the patient had been doing well. Continues with his current medications further interstitial lung disease with adequate effect. Recently his was admitted to the hospital with human metapneumovirus and other complications. He is concerned because now he has been exposed to this virus. On examination he does have increased wheezing he has been coughing some. Therefore will go ahead and keep him on the prednisone and also start him on nebulized therapy to see if we can provide some relief. If the patient needs to increase the prednisone he can do so. In also placement antibiotics to avoid a postviral bacterial infection. The patient is also having issues with his atrial fibrillation worse now back with rapid ventricular response to some degree. He is considering cardioversion again. The patient is aware that that is okay once he heals from his ongoing respiratory issue. The patient is aware that he should avoid amiodarone as an antiarrhythmic agent and he can consider other agents. 11/14/2022 the patient is here for a pulmonary follow-up visit. He is grieving the loss of his . He has lost a good amount of weight. He has had some lower extremity edema. He still atrial fibrillation. The patient was being evaluated by Cardiology regarding possibility cardioversion. But 1st, he is going to have a echocardiogram and also more diuresis. He continues on the CellCept with good response. He is also on the Ofev. No significant adverse effects. He is using his respiratory therapy. He had called and we had prescribed some doxycycline for a lower respiratory infection. The patient is getting better although he still having some wheezing. We did provide him ipratropium nebulized solution addition to Xopenex in order for him to provide bronchodilation with less irritation to his cardiac issues. The patient has stopped using it because he was losing his voice. I did request that he can start using it daily because he does have some wheezing on exam. If the patient is no better if she gets worse she is to call the office for further recommendations. 03/20/2023 the patient is here for a pulmonary follow-up visit. Overall he is doing well from a respiratory status. He continues uses oxygen with good effect. He is able to take a break during the daytime. We did talk about maintaining the oxygen between 92 and 96%. Sometimes he less ago a little higher in explained to him that his body does better when he maintains it around the mid 90s. The patient has been continue his anti fibrotic therapy and immunomodulator therapy with good response. His cardiac condition appears to be a more stable. He has back pain also more stable. Now he has a motor wheelchair that does help him move around. He is also participating in some degree of pulmonary rehabilitation which is reassuring. It appears that the pulmonary fibrosis is stable and not significantly progressing. Plan to follow- up in the spring with pulmonary function studies. Also to note he has been using the nebulizer machine. Although he has been noticing some hoarseness and raspiness of his voice. He denies any significant wheezing any longer. Therefore we can just use the breathing treatments as needed. 06/12/2023 the patient is here for a pulmonary follow-up visit. Recently he was in the hospital. Apparently he was in atrial fibrillation with rapid ventricular response requiring cardioversion. Unfortunately cardioversion did not work and ultimately required a repeat cardioversion. His course was complicated with an infection in the bladder and also potentially of the lung. He was treated with antibiotics. His oxygen requirements any change dramatically. He was also found to be anemic. I do not have those results. He had a very difficult time any still recovering from that. We did look at his CT scan of the the abdomen that he had during the stay. Did have some evidence of interstitial lung disease. All difficult to assess the progression of the disease at this time. He continues on the Ofev in continues on the prednisone 10 mg daily. His breathing is better so he can back off on the nebulizer treatments at this time. He is having some daytime drowsiness. His [place] score is elevated 05/25. With a history cardiovascular disease she will benefit from a sleep study. Will request an in-lab sleep study at this time. Will have him return after the sleep study and also will request a CT scan of the chest to reassess the degree of progression of his underlying pulmonary fibrosis. Also, the patient did bring some papers for his advanced directives. She wishes to be a DNR DNI. We did talk about the meaning of that as far as cardioversions are concerned. He would like to hold off on further cardioversions at this time. 09/18/2023 the patient is here for a pulmonary follow-up visit. The patient overall has been doing better. The patient feels like he has in a better state of health. He has been using his oxygen. However, he has been having issues with significant amount of nosebleeds and therefore has not been able to use the pulse oxygen via his nose. He has been just pulling in his mouth. He did try an OxyMask but unfortunately this will only can work with continues oxygen. He has been using humidifiers for the house. We did talk about saline gel to try to help decrease the irritation to the nose. In addition to that he has been using Afrin. I did caution not to use it more than 5 days at a time. The patient did have a CT scan of the chest which I personally reviewed demonstrating no significant changes in his underlying interstitial lung disease and pulmonary fibrosis. The patient also had pulmonary function studies demonstrating a severe restriction consistent with pulmonary fibrosis in a very severe diffusion impairment. Therefore, the patient understands that in view of having this severe restrictive lung disease due to the fibrosis he is high risk for any anesthesia or surgical procedures. He has been scheduled to undergo a Watchman procedure because the significant epistaxis not tolerating the Eliquis which I believe is a good option for him. Ideally if excuse be done without general anesthesia with a would be ideal. Again, the patient does have severe lung disease in therefore the severe risk for perioperative pulmonary complications which typically include; atelectasis, worsening hypoxia, pne umonia, prolonged mechanical ventilation and . Therefore prior to providing a surgical option all conservative approach is should be attempted. 03/24/2024 the patient is here for a pulmonary follow-up visit. Overall he is doing okay. Last week he did have COVID he did take the antiviral therapy in did help him. Subsequently after that he started developing a cough which is congested in nature with yellowish phlegm. Moderate severity. Although he is feeling otherwise okay. He is concerned about pneumonia though. He has not had any fevers or chills. He also feels some sinus congestion. Will go ahead and treat him for postviral bacterial bronchitis at this time. Does have some crackles on examination but is his baseline. The patient also has had issues with atrial fibrillation. He feels is related to his frequent diarrhea from the Ofev. He had to stop the office for about 3 weeks while the diarrhea was significant he was having the atrial fibrillation. He is still on the amiodarone as well. We did talk about that he can always consider decreasing the Ofev dose to the lower dose of 100 mg if he continues to have issues. He will let us know. Patient should also be weaned off the amiodarone or hopefully go to the lowest dose of 100 mg. He will talk to his knuckle strap sewer soon. With his ongoing interstitial lung disease it will be dangerous to keep him on amiodarone. He did tolerate the Watchman procedure well. No evidence of any complications from it. He is still on the blood thinners until I believe a few weeks from now where he can then subsequently stop it. 07/03/2024 the patient is here for a pulmonary follow-up visit. The patient overall has been doing well. He has been on 5 mg of prednisone tolerating that well. He is concerned because he is having significant tooth decay related to the prednisone. He would like to decrease the prednisone if possible. He is also having diarrhea from the Ofev so he is taking a break. He is currently north ing the lower dose although 5th right now. He did have a barium swallow which demonstrated some degree of dysmotility and did did mention the pulmonary fibrosis. Will go ahead and request a repeat x-ray this time. His last CT scan was back in 09/19/2023 demonstrating the pulmonary fibrosis. Will have him repeat his CT scan closer to the next appointment in the springtime. Hopefully we can decrease him to a lower dose of prednisone if not completely. He will continue with his other medications. He knows to go back [place] [facility] [place]. In addition to that he is using the oxygen with good effect. The oxygen tanks work better for him than the POC. Although he is going on a trip soon and he is going to need a POC. Will see if his DME company that none him 1 for few weeks. The patient is doing very well from a cardiac standpoint and he is motivated and will look to be starting pulmonary rehabilitation at [facility] soon. 10/06/2024 the patient is here for pulmonary follow-up visit. He has been noticing increasing dyspnea on exertion. Moderate severity. Sometimes when he has a pulmonary rehabilitation and he is on the treadmill he quickly desaturates down to 70% with increasing shortness of breath. He has been noting that he is having to use the oxygen more often. He has also been having more chest congestion. Coughing more phlegm. He started using his Xopenex along with ipratropium several times a day to try to help him with chest congestion. He is getting a lot of dry mouth. I did ask him to refrain from the ipratropium to minimize the dry mouth and also because it may cause the increased consistency of mucus in the phlegm. The patient also did have a CT scan of the chest which we personally reviewed and compared to a CAT scan he had back in 2022. Although there is mild progression seems to be a prolonged period of time between couple years or so of his disease state and therefore the progression appears to be slow. I do believe that is increased oxygen requirements have because the significant mucus plugging and less due to the interstitial changes. He does continue to go to pulmonary rehabilitation does a lot better with the bike. I did encourage him to pursue continued to do a day over capacity with a bike and to strengthen his legs in order to be able to provide better support so when he is able to use a treadmill at that point will be feeling better. He continues use oxygen with good effect. The oxygen therapy has been affecting beneficial. Will plan to follow-up in 3 months since he his progress. He does have awaiting to go to in October. Therefore will start him on doxycycline for the chest congestion. I would rather do azithromycin but is currently on amiodarone. We will start twice a day and then decreased down to daily. If it is something that is helping prophylactically will keep him on it until also the wedding. Same thing with the prednisone continue with current dose of prednisone to after the wedding. 01/13/2025 the patient is here for a pulmonary follow-up visit. He recovered from his illness that he had during the last visit. He is back to his baseline. He continues use the CellCept 2 g a day and continues with the Ofev 150 mg twice a day. He is weaning down the prednisone. Down to 4 mg of prednisone. He is going to wean down to 3 mg for the next few weeks. I did ask him to a lternate 3 and 4 for least a week to make sure that he slowly decreases the medication. Hopefully we can get him off the prednisone altogether in the coming months and then ultimately have him get blood work including a cortisol level to make sure that if properly making cortisol. The patient otherwise is doing okay he is using his oxygen with good effect. Does have crackles on exam which is his baseline. He is going to be following up with Cardiology and will be discussing further the amiodarone. He is taking a small dose of 100 mg. Does not seem to be affecting his pulmonary interstitial lung disease. Therefore, he can talk to his knuckle strap sewer see if he still needs the medication by me seems to be tolerating it although he does have increased risk of worsening interstitial lung disease while on it. [facility] Medical History Back pain Depression Insomnia PLMD (periodic limb movement disorder) COPD (chronic obstructive pulmonary disease) Atrial fibrillation Immunosuppression due to chronic steroid use IPF (idiopathic pulmonary fibrosis) Chronic respiratory failure ILD (interstitial lung disease) Social History Patient Tobacco Use Status: Never used Tobacco Review of Systems Const Reports daytime sleepiness, Reports difficulty sleeping, Reports fatigue, Denies fever(s), Reports headache(s), Denies night sweats and Reports snoring ENT Denies change in voice, Reports headache(s), Denies lip swelling, Reports epistaxis, Denies mouth pain, Reports nasal congestion, Reports nasal discharge and Denies tongue swelling Card Denies chest pain and Reports dyspnea on exertion Resp Reports change in phlegm color, Reports chest congestion, Reports cough, Reports dyspnea on exertion, Reports snoring and Reports wheezing GI Denies abdominal pain Musc Reports back pain and Reports radiating pain into limb Neuro Denies Neuro-related abnormal movements, Reports headache(s) and Reports radicular pain Psych Reports as per HPI, Reports anxiety and Reports depression Endo Reports fatigue Devendra/Lymph Denies easy bleeding and Denies lymphadenopathy Aller/Immun Denies lip swelling, Denies tongue swelling and Reports wheezing Physical Exam Vital Signs: Last Vital Signs Pulse 75 01/12/25 14:03 BP 108/50 L 01/12/25 14:03 Pulse Ox 91 L 01/12/25 14:03 Oxygen Delivery Method Room Air 01/12/25 14:03 Const General: alert Neck Neck: Yes normal visual inspection, Yes full ROM and Yes no lymphadenopathy Chest Chest palpation & inspection: normal inspection of the chest Resp Auscultation: wheezes and diminished lung sounds Cardio Rate: regular rate Rhythm: regular rhythm Heart sounds: S1 normal heart sound present and S2 normal heart sound present GI Palpation (GI): Soft to palpation and nontender Auscultation: normal bowel sounds Skin General skin exam: rashes and/or lesions noted Assessment & Plan Assessment & Plan (1) COPD (chronic obstructive pulmonary disease): Code(s): J44.9 - Chronic obstructive pulmonary disease, unspecified Category: Medical Qualifiers: COPD type: COPD with acute exacerbation Qualified Code(s): J44.1 - Chronic obstructive pulmonary disease with (acute) exacerbation (2) Immunosuppression due to chronic steroid use: Code(s): D84.821 - Immunodeficiency due to drugs; T38.0X5A - Adverse effect of glucocorticoids and synthetic analogues, initial encounter; 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 Currently being treated for the possibility of chronic hyper sensitivity pneumonitis. Appears to have a progressive process Code(s): J84.9 - Interstitial pulmonary disease, unspecified Category: Medical (6) KATHARINE (obstructive sleep apnea): Code(s): G47.33 - Obstructive sleep apnea (adult) (pediatric) Category: Medical (7) PLMD (periodic limb movement disorder): Code(s): G47.61 - Periodic limb movement disorder Category: Medical (8) Insomnia: Code(s): G47.00 - Insomnia, unspecified Category: Medical Qualifiers: Insomnia type: primary Qualified Code(s): F51.01 - Primary insomnia (9) Back pain: Code(s): M54.9 - Dorsalgia, unspecified Category: Medical Qualifiers: Back pain laterality: unspecified Back pain location: back pain in unspecified location Chronicity: chronic Qualified Code(s): M54.9 - Dorsalgia, unspecified; G89.29 - Other chronic pain (10) Atrial fibrillation: Code(s): I48.91 - Unspecified atrial fibrillation Category: Medical Qualifiers: Atrial fibrillation type: paroxysmal Qualified Code(s): I48.0 - Paroxysmal atrial fibrillation Plan continue prednisone 4mg with slow taper hold Ipratropium nebs BID, 1-2 times a day as needed continue Xopenex BID as needed NANCY as needed Continue oxygen supplementation 2l/pulse Amiodarone, lowest must effective dose continue Mycophenalate 2gm/day continue OFEV 150mg BID cont pulmonary [place] [facility] [place]work prior to visit F/U 3-4 months Orders: Orders Venous Blood Gas Today J44.1 - Chronic obstructive pulmonary disease with (acute) exacerbation, J84.112 - Idiopathic pulmonary fibrosis, J96.11 - Chronic respiratory failure with hypoxia Complete Blood Count Auto Diff Today J44.1 - Chronic obstructive pulmonary dise ase with (acute) exacerbation, J84.112 - Idiopathic pulmonary fibrosis, J96.11 - Chronic respiratory failure with hypoxia Basic Metabolic Panel Today J44.1 - Chronic obstructive pulmonary disease with (acute) exacerbation, J84.112 - Idiopathic pulmonary fibrosis, J96.11 - Chronic respiratory failure with hypoxia Cortisol Random Today J44.1 - Chronic obstructive pulmonary disease with (acute) exacerbation, J84.112 - Idiopathic pulmonary fibrosis, J96.11 - Chronic respiratory failure with hypoxia Erythrocyte Sedimentation Rate Today J44.1 - Chronic obstructive pulmonary disease with (acute) exacerbation, J84.112 - Idiopathic pulmonary fibrosis, J96.11 - Chronic respiratory failure with hypoxia Liver Panel Today J44.1 - Chronic obstructive pulmonary disease with (acute) exacerbation, J84.112 - Idiopathic pulmonary fibrosis, J96.11 - Chronic respiratory failure with hypoxia Coding Level of Care Code Est Pt Level 4 (09522) Complex EM visit Add On G2211 Diagnoses Chronic obstructive pulmonary disease with acute exacerbation J44.1 COPD type: COPD with acute exacerbation Immunosuppression due to chronic steroid use D84.821; T38.0X5A; Z79.52 IPF (idiopathic pulmonary fibrosis) J84.112 Chronic respiratory failure with hypoxia J96.11 Respiratory failure complication: hypoxia ILD (interstitial lung disease) J84.9 KATHARINE (obstructive sleep apnea) G47.33 PLMD (periodic limb movement disorder) G47.61 Primary insomnia F51.01 Insomnia type: primary Chronic back pain, unspecified back location, unspecified back pain laterality M54.9; G89.29 Back pain laterality: unspecified Back pain location: back pain in unspecified location Chronicity: chronic Paroxysmal atrial fibrillation I48.0 Atrial fibrillation type: paroxysmal Time Spent (min) 16
--- OUTSIDE RECORDS SUMMARY | 2025-01-12 15:20 | XMS_ITS | Clinical Summary ---
Author Organization [facility] Facility Address [address] [address] Care Team Providers [facility] Assist[facility] Teacher Name Role Phone Unavailable Primary Care Provider Unavailabl e Social History Tobacco Use Types Packs/Day Years Used Date Smoking Tobacco: Never Assessed Sex and Gender Information Value Date Recorded Sex Assigned at Not on file Legal Sex Male 3:21 PM EST Gender Identity Not on file Sexual Orientation Not on file Plan of Treatment Health Maintenance Due Date Last Done Comments Pneumococcal Vaccine: 50+ Ye ars (1 of 1 - PCV) 1991 Influenza Vaccine (#1) 2025 Hepatitis B Vaccine Aged Out No longe r eligible based on patient's age to complete [place] [id number] Medicare [facility] [place] [address] [place] [id number] Medicare [facility]
--- OUTSIDE RECORDS SUMMARY | 2025-01-12 15:20 | XMS_ITS | Data Portability ---
Author Organization ABHIJIT Duncan s, [address] Address [address] [place] [address] Care Team Providers Care Straw Boss Name Role Phone ITZ PALACIOS Primary Care Provider [phone] Assessment No assessment recorded. Plan of Treatment Reminders Order Date Submit Date Provider Last Modified By Organization Details Last Modified Time Details Appointments None recorded. Lab None recorded. Referral None recorded. Procedures None recorded. Surgeries None recorded. Imaging XR, foot, 3 or more view 2023 024 [facility], [address] [place] [address], [address], 12:10:40 Medication Orders colchicine 0.6 mg tablet 2023 024 [id number], [address] [place], [address], 4 11:46:01 cephalexin 500 mg capsule 2023 024 [facility], [address] [place], [address], 4 11:04:07 Bactrim DS 800 mg-160 mg tablet 2023 024 [id number] [address] [place], [address], 4 11:03:59 Patient TargetsNo targets recorded. Patient Instructions Encounter Date Encounter Id Patient Instructions Last Modified By Organization Details Last Modified Time 10/17/2023 [id number] Bursitis is pain and swelling of the [...] your doctor if you can take an dhys-tto-rtevnpk medicine. Do not take two or more [...] Pus draining from the area. A fever. [email or web address] Not available 10/17/2023 13:41:58 01/05/2024 [id number] gout: care instructions Not available 01/05/2024 11:45:57 learning about rice (rest, ice, compression, and elevation) Not available 01/05/2024 11:25:58 Reason for Referral None Reported. Results Created Date Observation Date Name Description Value Unit Range Abnormal Flag Note LastModifiedBy Organization Detail LastModifiedTime 01/05/20 24 01/05/2024 XR, foot, 3 or more view No observ ation record ed. [email or web address] [facility] [address] [place], [address], 01/05/2024 12:13:29 01/05/20 24 XR, foot, 3 or more view No observ ation record ed. [facility] [address] [place], [address], 01/05/2024 14:42:23 Result Notes None recorded. Problems Name Problem SNOMED Code Status Onset Date Resolution Date Notes Provider Name and Address Organization Details Recorded Time Fibrosis of lung 22846749 Active 2023 Christina Bricault null, PA - [facility] 4 11:12:51 Gastroesophage al reflux disease 603016187 Active 2023 Christina Bricault null, PA - [facility] 4 11:12:47 Atrial fibrillation 64096025 Active 2023 Christina Bricault null, PA - [facility] 4 11:12:42 Hypothyroidism 35098844 Active 2023 Christina Bricault null, PA - [facility] 4 11:13:10 Hypertensive disorder 73990555 Active 2023 Christina Bricault null, PA - [facility] 4 11:13:43 Prostatitis 1325777 Active 2023 Christina Bricault null, PA - [facility] 4 11:13:59 Edema 457064268 Active 2023 Christina Bricault null, PA - [facility] 4 11:14:23 Problem Notes None recorded. Medical Equipment None Reported. Allergies Allergen ID Allergen Name Allergen Category Reaction Reaction Severity Criticality Documentation Date Start Date Code Code System Note Provider Name and Address Organization Details Recorded Time 056335 Cipro medicatio n Not available Not available [facility] 10/17/202399332 3 RxNorm ABHIJIT Mullins - [facility] 4 13:06:14 Medications Name Sig Start Date Stop [...] No t Available cephalexin 500 mg capsule Take 1 capsule 4 times a day by oral route for 7 days. 01/04 completed Not Available Not Available Not [...] Not Available Not Available No t Available Bactrim DS 800 mg-160 mg tablet Take 1 tablet every 12 hours by oral route for 5 days. 01/04 completed Not Available Not Available Not Available azithromyci n 500 mg tablet TAKE [...] oximetry Heart rate Respiratory rate Body temperature Systolic And Diastolic Provider Name and Address Organization Details Last Updated DateTime 4 187.96 cm 28.2 kg/m2 75266.3 2 g 97 % 97 % 83 /min 18 /min 97.8 [degF] 110/69 mm[Hg] Lisa LACEY - [facility] 4 13:09:55 Date Recorded Body height Body mass index (BMI) Body weight Respiratory rate Oxygen saturation Oxygen saturation in Arterial blood by Pulse oximetry Heart rate Systolic And Diastolic Provider Name and Address Organization Details Last Updated DateTime 4 187.96 cm 28.2 kg/m2 32568.3 2 g 24 /min 95 % 95 % 91 /min 112/71 mm[Hg] Christina Mckeon PA - [facility] 4 11:18:53 Social History Question Answer Notes LastModified by [employer] Details LastModified Time Tobacco Smoking Status Never Smoker Lisa asif, PA - [facility] 10/17/2023 13:09:07 Have You Had A Flu Shot This [...] Relationship Status? Single Information not available 10/17/2023 Have You Recently Traveled Abroad? No Information no t available 10/17/2023 Are You Currently In School? No Information not available 10/17/2023 Sex: Unknown Functional Status Question Answer Note LastModified by [employer] Details LastModified Time Do you use any illicit or recreational drugs? No Information not available 10/17/2023 Do you or have you ever used any other forms of tobacco or nicotine? No Information not available 10/17/2023 What is your level of alcohol consumption? None Information not available 10/17/2023 Are you currently employed? No Information not available 10/17/2023 Mental Status None recorded. Family History Relationship Description Onset Age of this Age Resolved Age Notes LastModified by Organization Details LastModified Time Father No current problems or disability brown ethan Not available 10/17/2023 13:08:46 Mother No current problems or disability brown long Not available 10/17/2023 13:08:46 Medical History No medical history recorded. Past Encounters Encounter ID Performer Location Encounter Start Date Encounter Closed Date Diagnosis/Indication Diagnosis SNOMED-CT Code Diagnosis ICD10 Code Diagnosis Note [id number] [address] [facility] [place] [address] 11/22/2015 16:47:55 11/22/2015 18:10:10 [id number] ABHIJIT ABREU [address] [place] [place] [address] 10/17/2023 12:22:25 10/17/2023 13:53:44 Bursitis of olecranon of right elbow 7722444691 42377 M70.21 Infected bursa 352924476 M71.10 [id number] ABHIJIT MASTERS [address] [place] [address] 01/05/2024 10:46:26 01/05/2024 11:47:54 Pain in left foot 8178433491 73158 M79.672 Gout 74577584 M10.9 Based on your presentati on and exam, you are being diagnosed with gout. Gout is a form of arthritis. It can cause pain and swelling in the joints. At first, it tends to affect only 1 joint most frequently the big toe. It happens [...] Loss of sensation Thank you for using [facility] , please don't hesitate to reach out to us if you have any questions. Health Concerns Section Related Observation LastModified by Organization Detai ls LastModified Time None Recorded Concern Status LastModified by Organization Details LastModified Time None Recorded Advance Directives Directive None Recorded Payers Insurance Date Sequence Insurance Name Policy Number Policy Mcrae Covered Member ID Mcrae Member ID Guarantor Name 01/05/2024 1 [place] [employer] Isai Ford [id number] Isai Ford 01/05/2024 2 [place] [id number] Isai Ford [id number] Isai Ford Notes Date Note Type Note Provider Name and Address Organization Details Recorded Time 10/17/2023 text/html Upper Arm Elbow Injury UCReported bypatient.Notes:[age] y.o male pt presents with right elbow swelling with local erythema that started a few days ago. Pt has full flexion and extension. He denies pain or fever. ABHIJIT ABREU [address] [place], [address], [place] - [facility] 10/17/2023 16:02:39 01/05/2024 text/html 83 y/o male here with L lateral foot pain starting yesterday, no injury. Concerned for fracture given level of pain and h/o chronic steroid use ABHIJIT Wasserman [facility] [place], [address], PA - [facility] 01/05/2024 11:52:36
--- OUTSIDE RECORDS SUMMARY | 2025-01-12 15:20 | XMS_ITS | Patient Health Record ---
Author Organization [facility] Address [address] [place] [address] Care Team Providers Care License Examiner Name Role Phone Raimundo Schreiber MD Primary Care Provider Leslienery Leggett Tyesha Unavailable [phone] Allergies Allergen (clinical drug ingredient) Drug/Non Drug Allergy documented on EMR Reaction Allergy Type Onset Date Status ciprofloxacin Cipro Unknown Drug Allergy Act dolores Doxycycline (Rosacea) stomach irritation Drug Allergy Active sulfa Unknown Drug Allergy Active acetaminophen / oxycodone Percocet hallucination Drug Allergy Active Penicillin Unknown Drug Allergy Active Reason For Referral No Information Medications Medication SIG (Take, Route, Fr equency, Duration) Notes Start Date End Date Status Micardis 20 MG 1 tablet Orally Once a day Active Simvastatin 10 MG 1 tablet in the even ing Orally Once a day Active Problems Problem Type SNOMED Code ICD Code Onset Dates Problem Status W/U Status Risk Notes Problem Bursitis (25207053) Bursitis (727.3) Active confirmed Problem Hammer toe (259479508) Hammer toe (735.4) Active confirmed Problem Calcaneal spur (45639596) Calcaneal spur (726.73) Active confirmed Problem Myositis (00289953) Myositis (729.1) Active confirmed Problem Pain in limb (89689907) Pain in Limb (729.5) Active confirmed Problem Plantar fasciitis (040963033) Plantar Fasciitis (728.71) Active confirmed Problem Tibialis tendinitis (72048565) Posterior Tibial Tendonitis (726.72) Active confirmed Plan Of Treatment No Information Insurance Providers Payer Name Payer Address Payer Phone Subscriber Number Group Number Insured Name Patient Relationship to Insured Coverage Start Date Coverage End Date Medicare National [employer] [address] [place] [phone] [id number] Isai Ford Self - patient is the insured [employer] [facility] [address] [place] [address] [phone] [id number] Isai Ford Self - patient is the insured Medical (General) History Medical History History ICD Code Hypertension Chicken pox Measles Mumps Menieres disease Surgical History Surgery Date(Month/Year) cholecystectomy knee surgery
--- OUTSIDE RECORDS SUMMARY | 2025-01-12 15:20 | XMS_ITS | Clinical Summary ---
Author Organization [address] [place] [address] [place] [address] [place] [address] Phone Care Team Providers Care Superintendent Seed Mill Name Role Phone David Bryan MD Primary Care Provider [phone] Allergies Active Allergy Reactions Criticality Noted Date Comments Ciprofloxacin 08/08/2022 Ciprofloxacin-Hydrocortisone 021 Medications azithromycin (ZITHROMAX) 500 mg tablet 1 TAB ONE HOUR PRIOR TO DENTAL PROCEDURES UNTIL 04/02/24 S/P WATCHMAN 4 Active vitamin B complex/folic acid (B COMPLEX 1, WITH FOLIC ACID, ORAL) Take 1 Tablet by mouth daily. Active FA/mv,Ca,iron,min /lycopene/lut (MULTIVITAL ORAL) Take 1 Tablet by mouth [...] levalbuterol (XOPENEX) 0.31 mg/3 mL nebulizer solution Active ipratropium-albut Jennifer (DUONEB) 0.5-2.5 mg/3 mL nebulizer solution Inhale [...] Fri, Sat, Sun, 2 tabs on Mon Active [...] a day. Active multivitamin (MULTIPLE VITAMINS ORAL) Activ e spironolactone (ALDACTONE) 25 mg tablet Take 0.5 tablets (12.5 mg total) by mouth 1 (one) time each day. 45 tablet 2 4 Active lisinopriL (PRINIVIL,ZESTRIL ) 5 mg tablet Take 1 tablet (5 [...] (CALCITRATE) 950 mg (200 mg elemental calcium) tabletIndications :Chest pain, unspecified type,Paroxysmal atrial fibrillation (CMS/HCC V24, CMS/HCC V28),Presence of Watchman left atrial appendage closure device,Epistaxis Take 1 tablet (950 mg total) by mouth 1 (one) time each day. Active aspirin 81 mg EC tablet TAKE 1 TABLET BY MOUTH EVERY DAY 90 tablet 2 5 Active torsemide (DEMADEX) 20 mg tablet TAKE 1.5 TABLETS BY MOUTH 2 TIMES DAILY. 270 tablet 1 5 Active Active Problems Problem Noted Date Diagnosed Date Fatigue 02/27/2024 Cardiomyopathy (CMS/HCC V24, CMS/HCC V28) 2022 Overview (12/12/2024): - Nonischemic in the midst of septic shock with complete recovery after illness resolution - Also has chronic RV dysfunction-most likely cor pulmonale from history of pulmonary fibrosis - Echocardiogram during May 2023 admission at [facility] in the midst of urosepsis showed an [...] appeared a bit more dilated and hypokinetic Assessment & Plan (12/12/2024 11:13 AM EDT): Complete improvement and normalization of ejection fraction on most recent echo from 09/11/2023. I reviewed this great news with him. I am not escalating any goal- directed medical therapy for HFrEF as a result. I suspect this was all in the setting of an acute sick state at the time. He is euvolemic on exam. Peripheral edema 06/15/2023 Acute heart failure with pre served ejection fraction (CMS/[facility] V24, CMS/[facility] V28) 11/08/2022 Assessment & Plan (07/25/2024 10:52 PM [...] ECG 12 lead Compression of lumbar vertebra (CMS/HCC V24, CMS /HCC V28) 06/08/2022 Overview (05/08/2024): Last Assessment & Plan: Mr. Zaragoza describes low back pain that started in November and has gotten worse since that time. He denies any history of trauma but is on prednisone daily for the past couple of years. He had pain with percussion around L4. He would like to proceed with lumbar kyphoplasty if it is an option. He will discuss things with his shirt operator next week to make sure he would be a candidate for general anesthesia. I will review his films with Dr. Anderson. Hyperlipidemia 06/08/2022 Overview (05/08/2024): Hyperlipidemia Assessment & Plan (12/12/2024 11:14 AM EDT): I am going to have the patient redraw a lipid panel. He is not currently on a statin. Lipid panel from 06/2024 revealed an LDL of 130. I would like to start the patient on a statin however he is refusing at the appointment today as he reports he is weaning off of prednisone and would like to wait until he has done that until he initiates another medication. He should be done with the prednisone taper in 2 months. At that time we will discuss going on atorvastatin 20 mg p.o. daily. Did educate the patient about adhering to a healthy cardiac diet. Assessment & Plan (07/25/2024 10:52 PM EST): Hasn't had a fasting lipid profile updated in a bit. Will order this. Orders: Lipid panel; Future Palpitations 06/08/2022 Overview (05/08/2024): Palpitations Dilated aortic root (CMS/HCC V24) 03/04/2021 Assessment & Plan (12/12/2024 11:12 AM EDT): Echocardiogram from 08/2023 revealed an ascending aorta diameter of 3.4 cm. Aorta at the sinuses was 3.8 cm. Essential hypertension 03/04/2021 Overview (05/08/2024): Last Assessment & Plan: Well-controlled on current regimen, continue. Assessment & Plan (12/12/2024 11:14 AM EDT): Well-controlled. Continue current medication regiment. Hypothyroidism 03/04/2021 Pulmonary fibrosis (CMS/HCC V24, CMS/HCC V28) Paroxysmal atrial fibrillation (CMS/HCC V24, CMS /HCC V28) 01/19/2021 Overview (05/08/2024): - Diagnosed in November 2020 and was [address] Mckee at [facility] cardiology in August 2021 when flecainide was initiated - Cardioverted on flecainide with maintenance of sinus rhythm for almost a year - Admitted back to [facility] in July 2022 with A-fib with RVR-flecainide had to be discontinued due to significant LVH, which is a contraindication - Saw Dr. Donato in EP consult as a second opinion [...] Status post elective PVI ablation by Dr. Donato along with cavotricuspid flutter ablation on 05/21/2023 - Unfortunately, he had a very matthew postprocedure course complicated by urosepsis and bacteremia requiring [facility] admission and [facility]EL[facility] on top of that - In the setting of septic shock, he went back into A-fib with RVR-was subsequently cardioverted again on 05/29/2023 and has remained in sinus rhythm ever since Last Assessment & Plan: Status post Watchman procedure. He will be due for his 45-day ANYA at [facility] in a couple months. He is currently on dual antiplatelet therapy which she is tolerating well without excessive bleeding anywhere. Continue current metoprolol for rate control. He is currently in sinus rhythm post ablation. Assessment & Plan (12/12/2024 11:11 AM EDT): Patient is an sinus rhythm at the appointment today. Continue with the amiodarone 100 mg p.o. daily, had Watchman procedure not on anticoagulation aside from the baby aspirin due to this. Continue current medication regiment. Please continue to follow-up with our EP cardiovascular team. Assessment & Plan (08/24/2024 6:10 PM EST): Orders: ECG 12 lead Assessment & Plan (07/25/2024 10:52 PM EST): Will cut amiodarone back to 100mg per recommended EP taper. Watchman for CVA proph. Resolved Problems Problem Noted Date Diagnosed Date Resolved Date Pulmonary edema 06/15/2023 07/25/2024 Lower leg edema 11/08/2022 07/25/2024 Encounters Date Type Department Care Team Description 12/12/2024 10:40 AM EDT Office Visit [facility] [address] [place] [address] Hi Bradshaw NP Acute heart failure with preserved ejection fraction (CMS/HCC V24, CMS/HCC V28) (Primary Dx); Cardiomyopathy, unspecified type (CMS/HCC V24, CMS/HCC V28); Dilated aortic root (CMS/HCC V24); Essential hypertension; Hyperlipidemia, unspecified hyperlipidemia type; Paroxysmal atrial fibrillation (CMS/HCC V24, CMS/HCC V28) from Last 3 Months Medical History Medical History Date Comments Pulmonary fibrosis (CMS/HCC V24, CMS/HCC V28) DX:Pulmonary fibrosis (HCC) Hypothyroidism DX:Hypothyroidis m BPH (benign prostatic hyperplasia) DX:BPH (benign prostatic hyperplasia) Compression fracture of L4 v ertebra (CMS/HCC V24, CMS/HCC V28) DX:Compression fracture of L4 vertebra (HCC) Chronic back pain DX:Chronic daniella k pain Interstitial lung disease (C MS/HCC V24, CMS/HCC V28) DX:Interstitial lung disease (HCC) COPD (chronic obstructive pu lmonary disease) ([facility] V24, [facility] V28) DX:COPD (chronic o bstructive pulmonary disease) ([facility]) Fracture of lumbar spine wit hout spinal cord lesion ([facility] V24, [facility] V28) DX:Fracture of lumbar spine without spinal cord lesion ([facility]) Family History Medical History Relation Name Comments Angina Maternal Grandfather Relation Name Status Comments Father Maternal Grandfather Mother Social History Tobacco Use Types Packs/Day Years Used Date Smoking Tobacco: Never Smokeless Tobacco: Never Tobacco Cessation:Counseling Given: Not Answered Alcohol Use Standard Drinks/Week Comments Never 0 [...] Sign Reading Time Taken Comments Blood Pressure 100/56 12/12/2024 10:23 AM EDT Pulse 80 12/12/2024 10:23 AM EDT Temperature 36.5 C (97.7 F) 08/11/2024 1:38 PM EST Respiratory Rate 20 08/11/2024 1:38 PM EST Oxygen Saturation 93% 12/12/2024 10: 23 AM EDT On 2 liters of O2 Inhaled Oxygen Concentration - - Weight 108 kg (238 lb) 12/12/2024 10:23 AM EDT patient wheelchair Height 188 cm (6' 2 ) 12/12/2024 10:23 AM EDT Body Mass Index 30.56 12/12/2024 10:23 AM EDT Plan of Treatment Upcoming Encounters Date Type Department Care Team (Late st Contact Info) Description 01/26/2025 1:40 PM EDT Office Visit [facility] [address] [place] [address] Christina Estes PA [address] [place] [address] 02/16/2025 1:30 PM EDT Office Visit Orthopedic Surgery - [place] [address] [facility] [address] [place] [id number] Fareed Posadas, DPM [address] [facility] [address] [place] [address] Health Maintenance Due Date Last Done Comments DTaP,Tdap,and Td Vaccines (1 - Tdap) 1959 Zoster Vaccines (1 of 2) 1959 RSV Immunization Adult Patients (1 - 1-dose 75+ series) 2016 Depression Screening 06/10/2022 Falls Risk Assessment 06/10/2022 Medicare Annual Wellness Visit 06/10/2022 Social Influencers of Health Screening 06/10/2022 COVID-19 Vaccine ( season) 2024 02/19/2021, 08/30/2020, 07/30/2020 Influenza Vaccine (#1) 2025 , 03/23/2021, 05/18/2020 Hypertension/CHF/CAD Annual BMP Blood [...] age to complete this topic Meningococcal B Vaccine Aged Out No l onger eligible based on patient's age to complete this topic RSV Immunization Patients Under 20 months Aged Out No longer eligible based on patient's age to complete this topic Varicella Vaccines Aged Out No longer eligible based on patient's age to complete this topic Procedures Procedure Name Priority Date/Time Associated Diagnosis Comments ECG 12-LEAD Routine 12/12/2024 10:36 AM EDT Paroxysmal atrial fibrillation (CMS/HCC V24, CMS/HCC V28) BASIC METABOLIC PANEL Routine 06/12/2024 10:52 AM EST Longstanding persistent atrial fibrillation (CMS/HCC V24, CMS/HCC V28) LIPID PANEL WITH REFLEX TO DIRECT LDL Routine 06/12/2024 10:52 AM EST Longstanding persistent atrial fibrillation (CMS/HCC V24, CMS/HCC V28) Pure hypercholesterolemia from Last 3 Months or Most Recently Relevant to Health Maintenance Results * ECG 12 lead (12/12/2024 10:36 AM EDT) Ventricular Rate ECG 80 BPM GEMUSE Atrial Rate 80 BPM GEMUSE P-R Interval 186 ms GEMUSE QRS Duration 92 ms GEMUSE Q-T Interval 378 ms GEMUSE QTc 435 ms GEMUSE P Wave [place] 45 degrees GEMUSE R [place] -12 degrees GEMUSE T [place] 4 degrees GEMUSE ECG Interpretation Normal sinus rhythm Incomplete right bundle branch block Inferior infarct (cited on or before 12-DEC-2024) Abnormal ECG When compared with ECG of 29-JUL-2024 14:20, Nonspecific T wave abnormality now evident in Anterior leads Confirmed by SARAH FERGUSON ([id number]) on 01/01/2025 12:52:59 PM GEMUSE 12/12/2024 10:3 3 AM EDT 01/01/2025 12:52 PM EDT us Hi Bradshaw NP ECG ORDERABLES Edited Result - Final GEMUSE * (ABNORMAL) Lipid panel with reflex to direct LDL (06/12/2024 10:52 AM EST) Cholesterol 256(H) 0 - 200 mg/dL LAB CHEMISTRY METHOD 06/12/2024 12:34 PM EST [facility] Triglycerides 171(H) 0 - 150 mg/dL LAB CHEMISTRY METHOD 06/12/2024 12:34 PM [facility] HDL 92 >=40 mg/dL LAB CHEMISTRY METHOD 06/12/2024 12:34 PM [facility] LDL Calculated 130(H) 0 - 100 mg/dL LAB CHEMISTRY METHOD 06/12/2024 12:34 PM [facility] VLDL Cholesterol Blade 34.2 mg/dL LAB CHEMISTRY METHOD 06/12/2024 12:34 PM [facility] Non HDL Chol. (LDL+VLDL) 164(H) <145 mg/dL LAB CHEMISTRY METHOD 06/12/2024 12:34 PM [facility] Chol/HDL Ratio 2.8 0.0 - 4.4 LAB CHEMISTRY METHOD 06/12/2024 12:34 PM [facility] Blood Venous blood specimen / Unknown Venipuncture / Unknown 06/12/2024 10:52 AM EST 06/12/2024 11:32 AM EST us Sarah Ferguson MD LAB BLOOD ORDERABLES Final Resu lt [facility] [address] [place] [address], * (ABNORMAL) Basic metabolic panel (06/12/2024 10:52 AM EST) Sodium 141 133 - 145 mmol/L LAB CHEMISTRY METHOD 06/12/2024 12:31 PM [facility] Potassium 4.4 3.5 - 5.5 mmol/L LAB CHEMISTRY METHOD 06/12/2024 12:31 PM [facility] Chloride 104 96 - 110 mmol/L LAB CHEMISTRY METHOD 06/12/2024 12:31 PM [facility] CO2 30 21 - 32 mmol/L LAB CHEMISTRY METHOD 06/12/2024 12:31 PM [facility] Anion Gap 7 3 - 11 LAB CHEMISTRY METHOD 06/12/2024 12:31 PM [facility] Glucose 103(H) 70 - 100 mg/dL LAB CHEMISTRY METHOD 06/12/2024 12:31 PM [facility] BUN 24 5 - 25 mg/dL LAB CHEMISTRY METHOD 06/12/2024 12:31 PM [facility] Creatinine 1.55(H) 0.70 - 1.30 mg/dL LAB CHEMISTRY METHOD 06/12/2024 12:31 PM [facility] eGFR 44(L) >=60 mL/min/1. 73m2 LAB CHEMISTRY METHOD 06/12/2024 12:31 PM [facility] Comment:Calculation based on the Chronic Kidney Disease Epidemiology Collaboration (CKD-EPI) equation refit without adjustment for race. BUN/Creatinine Ratio 15.5 LAB CHEMISTRY METHOD 06/12/2024 12:31 PM [facility] Calcium 9.4 8.5 - 10.5 mg/dL LAB CHEMISTRY METHOD 06/12/2024 12:31 PM [facility] Blood Venous blood specimen / Unknown Venipuncture / Unknown 06/12/2024 10:52 AM EST 06/12/2024 11:32 AM EST us Sarah Ferguson MD LAB BLOOD ORDERABLES Final Resu lt [facility] [address] [place] [address], from Last 3 Months or Most Recently Relevant to Health Maintenance Insurance [facility]IC[facility] Care Teams Superintendent Seed Mill Relationship Specialty Start Date End Date David Bryan MD [address] [place] [address] PCP - General Jewelry Technician 09/25/14
--- OUTSIDE RECORDS SUMMARY | 2025-01-12 15:20 | XMS_ITS | Clinical Summary ---
Author Organization [facility] Address [address] [place] [address] Care Team Providers Care Vulcanizing Press Operator Name Role Phone David [place] MD Primary Care Provider [phone] Allergies Active Allergy Reactions Criticality Noted Date [...] 71 01/03/2020 1:10 PM EDT Temperature 36.7 C (98 F) 01/03/2020 1:10 PM EDT Respiratory Rate 18 [...] 75+ series) 2016 BMI Counseling 02/25/2020 02/24/2019 DTap / Tdap / Td (2 - Td or Tdap) 09/01/2024 015 Influenza Vaccine (#1) 2025 Hepatitis B Vaccines Aged Out No long er eligible based on patient's age to complete this topic RSV Ped < 20 months Aged Out No longe r eligible based on patient's age to complete this topic Care Teams Vulcanizing Press Operator Relationship Specialty Start Date End Date David Bryan MD [address] [place] [id number] PCP - General Front Facer 01/03/20
--- OUTSIDE RECORDS SUMMARY | 2025-01-12 15:20 | XMS_ITS ---
Author Name [facility] Organization Unknown History of Medication Use Medication Directions Dispensed Refills Start Date End Date Stat us ketorolac (TORADOL) injection 15 mg 15 mg, intramuscular, Once, On 08/11/24 at 1533, For 1 dose 08/11/2024 completed spironolactone (ALDACTONE) 25 mg tablet Take 0.5 tablets (12.5 mg total) by mouth 1 (one) time each day. 06/06/2024 active torsemide (DEMADEX) 20 mg tablet TAKE 1.5 TABLETS BY MOUTH 2 TIMES DAILY. 04/29/2024 active azithromycin (ZITHROMAX) 500 mg tablet 1 TAB ONE HOUR PRIOR TO DENTAL PROCEDURES UNTIL 04/02/24 S/P WATCHMAN 02/15/2024 active aspirin 81 mg EC tablet Take 1 tablet (81 mg total) by mouth 1 (one) time each day. 01/21/2024 active amiodarone (PACERONE) 100 mg tablet Take 1 tablet (100 mg total) by mouth 1 (one) time each day. active calcium citrate (CALCITRATE) 950 mg (200 mg elemental calcium) tablet Take 1 tablet (950 mg total) by mouth 1 (one) time each day. active cetirizine (ZyrTEC) 10 mg tablet Take 1 tablet (10 mg total) by mouth 1 (one) time each day. active cholecalciferol (Vitamin D3) 5,000 Units tablet Take 1 tablet (5,000 Units total) by mouth 1 (one) time each day. active ipratropium-albuteroL (DUONEB) 0.5-2.5 mg/3 mL nebulizer solution Inhale 3 mL into the lungs 4 times daily. active levalbuterol (XOPENEX) 0.31 mg/3 mL nebulizer solution Take 1 Ampule by nebulization every 4 hours as needed. active levothyroxine (SYNTHROID, LEVOTHROID) 50 mcg tablet Take 50 mcg by mouth daily. Take 1 tab Tue, Wed, Th, Fri, Sat, Sun, 2 tabs on Mon active lisinopriL (PRINIVIL,ZESTRIL) 5 mg tablet Take 1 tablet (5 mg total) by mouth 1 (one) time each day. active mirtazapine (REMERON) 15 mg tablet Take 1 Tablet by mouth at bedtime. active montelukast (SINGULAIR) 10 mg tablet Take 1 tablet (10 mg total) by mouth 1 (one) time each day. active mycophenolate (CELLCEPT) 500 mg tablet Take 2 tablets (1,000 mg total) by mouth 2 (two) times a day. active oxyCODONE (ROXICODONE) 5 mg immediate release tablet Take 1 tablet (5 mg total) by mouth every 6 (six) hours if needed. active pantoprazole (PROTONIX) 20 mg EC tablet Take 1 tablet (20 mg total) by mouth 1 (one) time each day. active predniSONE (DELTASONE) 5 mg tablet Take 2 tablets (10 mg total) by mouth 1 (one) time each day. active rOPINIRole (REQUIP) 0.25 mg tablet Take 1 Tablet by mouth 3 times daily. active tamsulosin (FLOMAX) 0.4 mg 24 hr capsule 2 capsules (0.8 mg total) 1 (one) time each day. active vitamin B complex/folic acid (B COMPLEX 1, WITH FOLIC ACID, ORAL) Take 1 Tablet by mouth daily. 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 active 2022-11-08 ProblemAct [facility] Palpitations active 2022-06-08 ProblemAct [facility] Hyperlipidemia active 2022-06-08 ProblemAct [facility] Peripheral edema active 2023-06-15 ProblemAct C [facility] Pulmonary fibrosis active 2021-03-04 ProblemAct [facility] Hypothyroidism active 2021-03-04 ProblemAct [facility] Chest wall muscle strain, initial encounter active EncounterDiagnosisAct [facility] Paroxysmal atrial fibrillation active 2021-01-19 ProblemAct [facility] Dilated aortic root active 2021-03-04 ProblemAct [facility] Fatigue active 2024-02-27 ProblemAct [facility] Compression of lumbar vertebra active 2022-06-08 ProblemAct [facility] Cardiomyopathy active 2023-06-15 ProblemAct [facility] Essential hypertension active 2021-03-04 ProblemAct [facility] Chest pain active 2022-06-08 ProblemAct [facility] Encounters Encounter Type Encounter Reason Primary Diagnosis Location Date Emergency L shoulder pain Strain of muscle and tendon of front wall of thorax, initial encounter [facility] 08/11/2024 Care Team Organization Name Specialty Phone Email Start Date End Da te [facility] David Bryan Primary Care 08/21/2024 [facility] David Bryan Primary Care 08/11/2024
== END 2025-01-12 14:44 | disposition home or self-care (01) ==
LOC: HO.HPS 13:59
PROVIDERS: PCP Internal Medicine; Visit Provider Hospitalist
DX: J44.1 Chronic obstructive pulmonary disease with (acute) exacerbation (principal); D84.821 Immunodeficiency due to drugs; T38.0X5A Adverse effect of glucocorticoids and synthetic analogues, initial encounter; Z79.52 Long term (current) use of systemic steroids; J84.112 Idiopathic pulmonary fibrosis; J96.11 Chronic respiratory failure with hypoxia; J84.9 Interstitial pulmonary disease, unspecified; G47.33 Obstructive sleep apnea (adult) (pediatric); G47.61 Periodic limb movement disorder; F51.01 Primary insomnia; M54.9 Dorsalgia, unspecified; G89.29 Other chronic pain; I48.0 Paroxysmal atrial fibrillation
CPT/HCPCS: 99214; G2211

== ENCOUNTER → 2025-01-12 13:59 | Outpatient (BNVA) | payer MEDICARE, SELFPAY | PROVIDERS: PCP Internal Medicine; Visit Provider Hospitalist | DX: J44.1 Chronic obstructive pulmonary disease with (acute) exacerbation (principal); D84.821 Immunodeficiency due to drugs; T38.0X5A Adverse effect of glucocorticoids and synthetic analogues, initial encounter; J84.112 Idiopathic pulmonary fibrosis; J96.11 Chronic respiratory failure with hypoxia; J84.9 Interstitial pulmonary disease, unspecified; G47.33 Obstructive sleep apnea (adult) (pediatric); G47.61 Periodic limb movement disorder; F51.01 Primary insomnia; M54.89 Other dorsalgia; G89.29 Other chronic pain; I48.0 Paroxysmal atrial fibrillation; Z79.52 Long term (current) use of systemic steroids; Z99.81 Dependence on supplemental oxygen | CPT/HCPCS: 99212 ==

== ENCOUNTER 2025-04-24 13:14 | Outpatient (AMB) | payer MEDICARE, SELFPAY ==
[2025-04-24 13:30] VITALS: BP 120/54; PULSE 64; O2SAT 92
--- NOTE | 2025-04-24 13:30 | MHC.OFFVIS ---
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 He had been going to a transition move from his house to a condominium and why he was doing that he was exposed to inorganic dust in the form of cement. In addition to that he worked at [employer] for about 20 years of his life and prior to that he worked that [employer] with significant exposures well and she could be. Ultimately he was not complaining of any respiratory symptoms. More recently with increasing shortness of breath sensation he was evaluated by Cardiology. He had a stress test that was negative for any heart involvement but did have an episode of hypoxia when he dropped to 83%. After that he did get his own oximeter and he has been checking his oxygen and appears to be maintaining around 92-94%. However, he did have a CT scan of the abdomen back in June 2018 for his underlying renal calculi it was noted that he had evidence of pulmonary fibrosis which is concerning. Therefore due to his persistent symptoms and his hypoxia and abnormal CT scan of the abdomen he was referred to Pulmonary. We did review his blood work and was all relatively negative for any evidence of any connective tissue conditions or inflammatory conditions that can result in the interstitial lung disease. He also underwent for CT scan of the chest demonstrating mainly chronic changes with reticular changes and honeycombing as well as some traction bronchiectasis. However, he also has some degree of subacute or acute pneumonitis occurring and his left lower lung zone. Seems to have responded well to the trelegy, I will send him a generic at this time. In the meantime based on the findings demonstrating mainly chronic interstitial changes I am not sure that a surgical biopsy will really exchange operator at this time. It is my suspicion that he may have a component of idiopathic pulmonary fibrosis based on the fact that he has peripheral raise reticular changes with some honeycombing primarily at the bases. The area that is less consistent is this like ground-glass area in the left base but this may be a different entity altogether. Therefore treating for idiopathic pulmonary fibrosis will be reasonable at this time. Based on the findings on his CT scan I suspect that he has a component of idiopathic pulmonary fibrosis. Continue the prednisone at low dose for now. Will discuss the use of anti- fibrotic therapy during the next visit. 09/12/2022 the patient is here for a pulmonary follow-up visit. He is here with his son. His back pain has been getting a little better P which is reassuring. He did follow-up with Neurosurgery and did not recommend surgery and went home because they did not feel that it would provide significant improvement and not worked risk. Therefore his continue with physical therapy and he has had some improvement. He may have to see a pain specialist to see about other alternative therapies for pain control. In the meantime from a respiratory status the patient had been doing well. Continues with his current medications further interstitial lung disease with adequate effect. Recently his was admitted to the hospital with human metapneumovirus and other complications. He is concerned because now he has been exposed to this virus. On examination he does have increased wheezing he has been coughing some. Therefore will go ahead and keep him on the prednisone and also start him on nebulized therapy to see if we can provide some relief. If the patient needs to increase the prednisone he can do so. In also placement antibiotics to avoid a postviral bacterial infection. The patient is also having issues with his atrial fibrillation worse now back with rapid ventricular response to some degree. He is considering cardioversion again. The patient is aware that that is okay once he heals from his ongoing respiratory issue. The patient is aware that he should avoid amiodarone as an antiarrhythmic agent and he can consider other agents. 11/14/2022 the patient is here for a pulmonary follow-up visit. He is grieving the loss of his . He has lost a good amount of weight. He has had some lower extremity edema. He still atrial fibrillation. The patient was being evaluated by Cardiology regarding possibility cardioversion. But 1st, he is going to have a echocardiogram and also more diuresis. He continues on the CellCept with good response. He is also on the Ofev. No significant adverse effects. He is using his respiratory therapy. He had called and we had prescribed some doxycycline for a lower respiratory infection. The patient is getting better although he still having some wheezing. We did provide him ipratropium nebulized solution addition to Xopenex in order for him to provide bronchodilation with less irritation to his cardiac issues. The patient has stopped using it because he was losing his voice. I did request that he can start using it daily because he does have some wheezing on exam. If the patient is no better if she gets worse she is to call the office for further recommendations. 03/20/2023 the patient is here for a pulmonary follow-up visit. Overall he is doing well from a respiratory status. He continues uses oxygen with good effect. He is able to take a break during the daytime. We did talk about maintaining the oxygen between 92 and 96%. Sometimes he less ago a little higher in explained to him that his body does better when he maintains it around the mid 90s. The patient has been continue his anti fibrotic therapy and immunomodulator therapy with good response. His cardiac condition appears to be a more stable. He has back pain also more stable. Now he has a motor wheelchair that does help him move around. He is also participating in some degree of pulmonary rehabilitation which is reassuring. It appears that the pulmonary fibrosis is stable and not significantly progressing. Plan to follow-up in the spring with pulmonary function studies. Also to note he has been using the nebulizer machine. Although he has been noticing some hoarseness and raspiness of his voice. He denies any significant wheezing any longer. Therefore we can just use the breathing treatments as needed. 06/12/2023 the patient is here for a pulmonary follow-up visit. Recently he was in the hospital. Apparently he was in atrial fibrillation with rapid ventricular response requiring cardioversion. Unfortunately cardioversion did not work and ultimately required a repeat cardioversion. His course was complicated with an infection in the bladder and also potentially of the lung. He was treated with antibiotics. His oxygen requirements any change dramatically. He was also found to be anemic. I do not have those results. He had a very difficult time any still recovering from that. We did look at his CT scan of the the abdomen that he had during the stay. Did have some evidence of interstitial lung disease. All difficult to assess the progression of the disease at this time. He continues on the Ofev in continues on the prednisone 10 mg daily. His breathing is better so he can back off on the nebulizer treatments at this time. He is having some daytime drowsiness. His Gl[place] score is elevated 11/24. With a history cardiovascular disease she will benefit from a sleep study. Will request an in-lab sleep study at this time. Will have him return after the sleep study and also will request a CT scan of the chest to reassess the degree of progression of his underlying pulmonary fibrosis. Also, the patient did bring some papers for his advanced directives. She wishes to be a DNR DNI. We did talk about the meaning of that as far as cardioversions are concerned. He would like to hold off on further cardioversions at this time. 09/18/2023 the patient is here for a pulmonary follow-up visit. The patient overall has been doing better. The patient feels like he has in a better state of health. He has been using his oxygen. However, he has been having issues with significant amount of nosebleeds and therefore has not been able to use the pulse oxygen via his nose. He has been just pulling in his mouth. He did try an OxyMask but unfortunately this will only can work with continues oxygen. He has been using humidifiers for the house. We did talk about saline gel to try to help decrease the irritation to the nose. In addition to that he has been using Afrin. I did caution not to use it more than 5 days at a time. The patient did have a CT scan of the chest which I personally reviewed demonstrating no significant changes in his underlying interstitial lung disease and pulmonary fibrosis. The patient also had pulmonary function studies demonstrating a severe restriction consistent with pulmonary fibrosis in a very severe diffusion impairment. Therefore, the patient understands that in view of having this severe restrictive lung disease due to the fibrosis he is high risk for any anesthesia or surgical procedures. He has been scheduled to undergo a Watchman procedure because the significant epistaxis not tolerating the Eliquis which I believe is a good option for him. Ideally if excuse be done without general anesthesia with a would be ideal. Again, the patient does have severe lung disease in therefore the severe risk for perioperative pulmonary complications which typically include; atelectasis, worsening hypoxia, pneumonia, prolonged mechanical ventilation and . Therefore prior to providing a surgical option all conservative approach is should be attempted. 03/24/2024 the patient is here for a pulmonary follow-up visit. Overall he is doing okay. Last week he did have COVID he did take the antiviral therapy in did help him. Subsequently after that he started developing a cough which is congested in nature with yellowish phlegm. Moderate severity. Although he is feeling otherwise okay. He is concerned about pneumonia though. He has not had any fevers or chills. He also feels some sinus congestion. Will go ahead and treat him for postviral bacterial bronchitis at this time. Does have some crackles on examination but is his baseline. The patient also has had issues with atrial fibrillation. He feels is related to his frequent diarrhea from the Ofev. He had to stop the office for about 3 weeks while the diarrhea was significant he was having the atrial fibrillation. He is still on the amiodarone as well. We did talk about that he can always consider decreasing the Ofev dose to the lower dose of 100 mg if he continues to have issues. He will let us know. Patient should also be weaned off the amiodarone or hopefully go to the lowest dose of 100 mg. He will talk to his erp project manager soon. With his ongoing interstitial lung disease it will be dangerous to keep him on amiodarone. He did tolerate the Watchman procedure well. No evidence of any complications from it. He is still on the blood thinners until I believe a few weeks from now where he can then subsequently stop it. 07/03/2024 the patient is here for a pulmonary follow-up visit. The patient overall has been doing well. He has been on 5 mg of prednisone tolerating that well. He is concerned because he is having significant tooth decay related to the prednisone. He would like to decrease the prednisone if possible. He is also having diarrhea from the Ofev so he is taking a break. He is currently taking the lower dose although 5th right now. He did have a barium swallow which demonstrated some degree of dysmotility and did did mention the pulmonary fibrosis. Will go ahead and request a repeat x-ray this time. His last CT scan was back in 09/19/2023 demonstrating the pulmonary fibrosis. Will have him repeat his CT scan closer to the next appointment in the springtime. Hopefully we can decrease him to a lower dose of prednisone if not completely. He will continue with his other medications. He knows to go back on the Of whenever possible. In addition to that he is using the oxygen with good effect. The oxygen tanks work better for him than the POC. Although he is going on a trip soon and he is going to need a POC. Will see if his DME company that none him 1 for few weeks. The patient is doing very well from a cardiac standpoint and he is motivated and will look to be starting pulmonary rehabilitation at [facility] soon. 10/06/2024 the patient is here for pulmonary follow-up visit. He has been noticing increasing dyspnea on exertion. Moderate severity. Sometimes when he has a pulmonary rehabilitation and he is on the treadmill he quickly desaturates down to 70% with increasing shortness of breath. He has been noting that he is having to use the oxygen more often. He has also been having more chest congestion. Coughing more phlegm. He started using his Xopenex along with ipratropium several times a day to try to help him with chest congestion. He is getting a lot of dry mouth. I did ask him to refrain from the ipratropium to minimize the dry mouth and also because it may cause the increased consistency of mucus in the phlegm. The patient also did have a CT scan of the chest which we personally reviewed and compared to a CAT scan he had back in 2022. Although there is mild progression seems to be a prolonged period of time between couple years or so of his disease state and therefore the progression appears to be slow. I do believe that is increased oxygen requirements have because the significant mucus plugging and less due to the interstitial changes. He does continue to go to pulmonary rehabilitation does a lot better with the bike. I did encourage him to pursue continued to do a day over capacity with a bike and to strengthen his legs in order to be able to provide better support so when he is able to use a treadmill at that point will be feeling better. He continues use oxygen with good effect. The oxygen therapy has been affecting beneficial. Will plan to follow-up in 3 months since he his progress. He does have awaiting to go to in October. Therefore will start him on doxycycline for the chest congestion. I would rather do azithromycin but is currently on amiodarone. We will start twice a day and then decreased down to daily. If it is something that is helping prophylactically will keep him on it until also the wedding. Same thing with the prednisone continue with current dose of prednisone to after the wedding. 01/13/2025 the patient is here for a pulmonary follow-up visit. He recovered from his illness that he had during the last visit. He is back to his baseline. He continues use the CellCept 2 g a day and continues with the Ofev 150 mg twice a day. He is weaning down the prednisone. Down to 4 mg of prednisone. He is going to wean down to 3 mg for the next few weeks. I did ask him to alternate 3 and 4 for least a week to make sure that he slowly decreases the medication. Hopefully we can get him off the prednisone altogether in the coming months and then ultimately have him get blood work including a cortisol level to make sure that if properly making cortisol. The patient otherwise is doing okay he is using his oxygen with good effect. Does have crackles on exam which is his baseline. He is going to be following up with Cardiology and will be discussing further the amiodarone. He is taking a small dose of 100 mg. Does not seem to be affecting his pulmonary interstitial lung disease. Therefore, he can talk to his erp project manager see if he still needs the medication by me seems to be tolerating it although he does have increased risk of worsening interstitial lung disease while on it. 04/24/2025 the patient is here for a pulmonary follow-up visit. Overall the patient is doing fair. He does feel like his shortness of breath gotten worse. He is requiring more oxygen. He does continue with the CellCept 2 g a day and also with the Ofev 150 mg daily. He was trying to wean off the prednisone. He was down to 3 mg when he started feeling very tired and fatigued. Therefore he increase it to 4 mg. He is going to start alternating to every other day. We did talk about considering decreasing it even slower by 0.5 mg to make sure we goes lower. Been in the meantime also check blood work including a random cortisol level to assess the level. He understands that if he does have significant adrenal insufficiency for his chronic use of steroids may be that he has a just stay on a small dose to keep him stable. In view of his worsening respiratory symptoms will go ahead and request pulmonary function studies to see a progression. If there is any evidence of progression we did talk about the new medication for pulmonary fibrosis that we can consider. Will talk about that during the next visit after his PFTs. He will also undergo blood work prior to the next visit. [facility] Medical History Back pain Depression Insomnia PLMD (periodic limb movement disorder) COPD (chronic obstructive pulmonary disease) Atrial fibrillation Immunosuppression due to chronic steroid use IPF (idiopathic pulmonary fibrosis) Chronic respiratory failure ILD (interstitial lung disease) Social History Patient Tobacco Use Status: Never used Tobacco Review of Systems Const Reports daytime sleepiness, Reports difficulty sleeping, Reports fatigue, Denies fever(s), Reports headache(s), Denies night sweats and Reports snoring ENT Denies change in voice, Reports headache(s), Denies lip swelling, Reports epistaxis, Denies mouth pain, Reports nasal congestion, Reports nasal discharge and Denies tongue swelling Card Denies chest pain and Reports dyspnea on exertion Resp Reports change in phlegm color, Reports chest congestion, Reports cough, Reports dyspnea on exertion, Reports snoring and Reports wheezing GI Denies abdominal pain Musc Reports back pain and Reports radiating pain into limb Neuro Denies Neuro-related abnormal movements, Reports headache(s) and Reports radicular pain Psych Reports as per HPI, Reports anxiety and Reports depression Endo Reports fatigue Devendra/Lymph Denies easy bleeding and Denies lymphadenopathy Aller/Immun Denies lip swelling, Denies tongue swelling and Reports wheezing Physical Exam Vital Signs: Last Vital Signs Pulse 64 04/24/25 13:30 BP 120/54 L 04/24/25 13:30 Pulse Ox 92 04/24/25 13:30 Oxygen Delivery Method Room Air 04/24/25 13:30 Const General: alert Neck Neck: Yes normal visual inspection, Yes full ROM and Yes no lymphadenopathy Chest Chest palpation & inspection: normal inspection of the chest Resp Auscultation: wheezes and diminished lung sounds Cardio Rate: regular rate Rhythm: regular rhythm Heart sounds: S1 normal heart sound present and S2 normal heart sound present GI Palpation (GI): Soft to palpation and nontender Auscultation: normal bowel sounds Skin General skin exam: rashes and/or lesions noted Assessment & Plan Assessment & Plan (1) COPD (chronic obstructive pulmonary disease): Code(s): J44.9 - Chronic obstructive pulmonary disease, unspecified Category: Medical Qualifiers: COPD type: COPD with acute exacerbation Qualified Code(s): J44.1 - Chronic obstructive pulmonary disease with (acute) exacerbation (2) Immunosuppression due to chronic steroid use: Code(s): D84.821 - Immunodeficiency due to drugs; T38.0X5A - Adverse effect of glucocorticoids and synthetic analogues, initial encounter; Z79.52 - [facility] (current) use of systemic steroids Category: Medical (3) IPF (idiopathic pulmonary fibrosis): Comment: some slow progression Code(s): J84.112 - Idiopathic pulmonary fibrosis Category: Medical (4) Chronic respiratory failure: Code(s): J96.10 - Chronic respiratory failure, unspecified whether with hypoxia or hypercapnia Category: Medical Qualifiers: Respiratory failure complication: hypoxia Qualified Code(s): J96.11 - Chronic respiratory failure with hypoxia (5) ILD (interstitial lung disease): Comment: probable idiopathic pulmonary fibrosis. Currently being treated for the possibility of chronic hyper sensitivity pneumonitis. Appears to have a progressive process Code(s): J84.9 - Interstitial pulmonary disease, unspecified Category: Medical (6) KATHARINE (obstructive sleep apnea): Code(s): G47.33 - Obstructive sleep apnea (adult) (pediatric) Category: Medical (7) PLMD (periodic limb movement disorder): Code(s): G47.61 - Periodic limb movement disorder Category: Medical (8) Insomnia: Code(s): G47.00 - Insomnia, unspecified Category: Medical Qualifiers: Insomnia type: primary Qualified Code(s): F51.01 - Primary insomnia (9) Back pain: Code(s): M54.9 - Dorsalgia, unspecified Category: Medical Qualifiers: Back pain laterality: unspecified Back pain location: back pain in unspecified location Chronicity: chronic Qualified Code(s): M54.9 - Dorsalgia, unspecified; G89.29 - Other chronic pain (10) Atrial fibrillation: Code(s): I48.91 - Unspecified atrial fibrillation Category: Medical Qualifiers: Atrial fibrillation type: paroxysmal Qualified Code(s): I48.0 - Paroxysmal atrial fibrillation Plan continue prednisone 4mg with slow taper hold Ipratropium nebs BID, 1-2 times a day as needed continue Xopenex BID as needed NANCY as needed Continue oxygen supplementation 2l/pulse Amiodarone, lowest must effective dose continue Mycophenalate 2gm/day continue OFEV 150mg BID cont pulmonary [place] [facility] [place] bloodwork PFTs F/U 3-4 months Orders: Orders PFT pulmonary function test Today J84.112 - Idiopathic pulmonary fibrosis Coding Level of Care Code Est Pt Level 4 (26084) Complex EM visit Add On G2211 Diagnoses Chronic obstructive pulmonary disease with acute exacerbation J44.1 COPD type: COPD with acute exacerbation Immunosuppression due to chronic steroid use D84.821; T38.0X5A; Z79.52 IPF (idiopathic pulmonary fibrosis) J84.112 Chronic respiratory failure with hypoxia J96.11 Respiratory failure complication: hypoxia ILD (interstitial lung disease) J84.9 KATHARINE (obstructive sleep apnea) G47.33 PLMD (periodic limb movement disorder) G47.61 Primary insomnia F51.01 Insomnia type: primary Chronic back pain, unspecified back location, unspecified back pain laterality M54.9; G89.29 Back pain laterality: unspecified Back pain location: back pain in unspecified location Chronicity: chronic Paroxysmal atrial fibrillation I48.0 Atrial fibrillation type: paroxysmal Time Spent (min) 18
--- OUTSIDE RECORDS SUMMARY | 2025-04-24 15:14 | XMS_ITS | Clinical Summary ---
Author Organization [facility] Address [address] [place] [address] Care Team Providers Care Warehouse Incentive Selector Name Role Phone David Bryan MD Primary Care Provider [phone] Allergies Active Allergy Reactions Criticality Noted Date [...] age to complete this topic Care Teams Warehouse Incentive Selector Relationship Specialty Start Date End Date David Bryan MD [address] [place] [id number] PCP - General Psychosocial Rehabilitation Counselor 01/03/20
--- OUTSIDE RECORDS SUMMARY | 2025-04-24 15:14 | XMS_ITS | Clinical Summary ---
Author Organization [address] [place] [address] [place] [address] [place] [address] Phone Care Team Providers Care Jet Mechanic Name Role Phone David Bryan MD Primary Care Provider [phone] Allergies Active Allergy Reactions Criticality Noted Date [...] by mouth daily. Take 1 tab Tue, Sun, , Fri, Sat, Sun, 2 tabs on [...] Active multivitamin (MULTIPLE VITAMINS ORAL) Activ e lisinopriL (PRINIVIL,ZESTRIL ) 5 mg tablet Take [...] TIMES DAILY. 270 tablet 1 5 Active predniSONE (DELTASONE) 1 mg tablet Take 4 tablets (4 mg total) by mouth 1 (one) time each day. Active zoledronic acid (RECLAST) 5 mg/100 mL piggyback Infuse 100 mL (5 mg total) into a venous catheter every 6 (six) months. Active spironolactone (ALDACTONE) 25 mg tablet TAKE 0.5 TABLETS BY MOUTH 1 TIME EACH DAY. 45 tablet 2 Active Active Problems Problem Noted Date Diagnosed Date Fatigue 02/27/2024 Cardiomyopathy (CMS/HCC V24, CMS/HCC V28) 2022 Overview (12/12/2024): - Nonischemic in the midst of septic shock with complete recovery after illness resolution - Also has chronic RV dysfunction-most likely cor pulmonale from history of pulmonary fibrosis - Echocardiogram during May 2023 admission at [facility] in the midst of urosepsis showed [...] heart failure with pre served ejection fraction (CMS/HCC V24, CMS/HCC V28) 11/08/2022 Assessment & Plan (07/25/2024 10:52 [...] ECG 12 lead Compression of lumbar vertebra ([facility] V24, CMS /HCC V28) 06/08/2022 Overview (05/08/2024): [...] option. He will discuss things with his management services technician next week to make sure he would [...] 06/08/2022 Overview (05/08/2024): Palpitations Dilated aortic root ([facility] V24) 03/04/2021 Assessment & Plan (12/12/2024 11:12 [...] and was seen by Dr. Mckee at [facility] cardiology in August 2021 when flecainide was initiated - Cardioverted on flecainide with maintenance of sinus rhythm for almost a year - Admitted back to [facility] in July 2022 with A-fib with [...] course complicated by urosepsis and bacteremia requiring [facility] admission and FELIX on top of that - In the setting of septic shock, he went back into A-fib with RVR-was subsequently cardioverted again on 05/29/2023 and has remained in sinus rhythm ever since Last Assessment & Plan: Status post Watchman procedure. He will be due for his 45-day ANYA at [facility] in a couple months. He is [...] Encounters Date Type Department Care Team Description 02/16/2025 1:30 PM EDT Office Visit Orthopedic Surgery - [place] [address] [facility] [address] [place] [address] Fareed Posadas, DPM Tinea pedis of both feet (Primary Dx); Dermatophytosis of nail; Pain in toe of right foot; Pain in toe of left foot; Difficulty walking [R26.2]; Neuritis 01/26/2025 1:40 PM EDT Office Visit [facility] [address] [facility] [address] [place] [address] Christina Estes PA History of amiodarone therapy (Primary Dx); Essential hypertension; Cardiomyopathy, unspecified type (CMS/HCC V24, CMS/HCC V28); Pulmonary fibrosis (CMS/HCC V24, CMS/HCC V28); Paroxysmal atrial fibrillation (CMS/HCC V24, CMS/HCC V28); Acute heart failure with preserved ejection fraction (CMS/HCC V24, CMS/[facility] V28) from Last 3 Months Medical History Medical History Date Comments Pulmonary fibrosis (CMS/[facility] V24, CMS/[facility] V28) DX:Pulmonary fibrosis (HCC) Hypothyroidism DX:Hypothyroidis m BPH (benign prostatic hyperplasia) DX:BPH (benign prostatic hyperplasia) Compression fracture of L4 v ertebra (CMS/HCC V24, CMS/[facility] V28) DX:Compression fracture of L4 vertebra (HCC) Chronic back pain DX:Chronic daniella k pain Interstitial lung disease ([facility] V24, CMS/[facility] V28) DX:Interstitial lung disease (HCC) COPD (chronic obstructive pu lmonary disease) (CMS/[facility] V24, CMS/[facility] V28) DX:COPD (chronic o bstructive pulmonary disease) ([facility]) Fracture of lumbar spine wit hout spinal cord lesion (CMS/[facility] V24, [facility] V28) DX:Fracture of lumbar spine without spinal [...] Sign Reading Time Taken Comments Blood Pressure 110/58 01/26/2025 1:24 PM EDT Pulse 68 01/26/2025 1:24 PM EDT Temperature 36.5 C (97.7 F) 08/11/2024 1:38 PM EST Respiratory Rate 20 08/11/2024 1:38 PM EST Oxygen Saturation 92% 01/26/2025 1:2 4 PM EDT continous 2 L Inhaled Oxygen Concentration - - Weight 107 kg (235 lb 14.3 oz) 02/16/2025 1:28 PM EDT Height 188 cm (6' 2.02 ) 02/16/2025 1:2 8 PM EDT Body Mass Index 30.27 02/16/2025 1:28 PM EDT Plan of Treatment Upcoming Encounters Date Type Department Care Team (Late st Contact Info) Description 05/19/2025 1:00 PM EST Office Visit Orthopedic Surgery - [place] [address] [facility] [address] [place] [address] Fareed Posadas, DPM [address] [address] Health Maintenance Due Date Last Done Comments DTaP,Tdap,and Td Vaccines (1 - Tdap) 1959 Zoster Vaccines (1 of 2) 1959 RSV Immunization Adult Patients (1 - 1-dose 75+ series) 2016 Falls Risk Assessment 06/10/2022 Medicare Annual Wellness Visit 06/10/2022 Social Influencers of Health Screening 06/10/2022 Depression Screening 07/02/2024 COVID-19 Vaccine ( season) 2025 02/19/2021, 08/30/2020, 07/30/2020 Influenza Vaccine (#1) 2025 , 03/23/2021, 05/18/2020 Hypertension/CHF/CAD Annual BMP Blood Test 02/06/2026 02/06/2025, 06/12/2024, 01/18/2024, Additional history exists Cholesterol Screening (Lipid [...] Procedure Name Priority Date/Time Associated Diagnosis Comments COMPREHENSIVE METABOLIC PANEL Routine 02/06/2025 12:34 PM EDT History of amiodarone therapy Essential hypertension Cardiomyopathy, unspecified type (CMS/HCC V24, CMS/HCC V28) THYROID STIMULATING HORMONE WITH REFLEX TO FREE T4 AND FREE T3 Routine 02/06/2025 12:34 PM EDT History of amiodarone therapy Essential hypertension Cardiomyopathy, unspecified type (CMS/HCC V24, CMS/HCC V28) LIPID PANEL WITH REFLEX TO DIRECT LDL Routine 06/12/2024 10:52 AM EST Longstanding persistent atrial fibrillation (CMS/HCC V24, CMS/HCC V28) Pure hypercholesterolemia from Last 3 Months or Most Recently Relevant to Health Maintenance Results * Thyroid stimulating hormone with reflex to free t4 and free t3 (02/06/2025 12:34 PM EDT) Thyroid Stimulating Hormone (TSH) 4.360 0.450 - 4.500 uIU/mL [facility] 1 Blood Venous blood specimen / Unknown 02/06/2025 12:34 PM EDT 02/06/2025 Narrative [facility] 1 - 02/07/2025 5:06 AM EDT Performed at: 01 - [facility] [address] [id number] Decal Maker: Lexis Maher MD, Phone: [phone] us Christina LACEY LAB BLOOD ORDERABLES Final Resul t [facility] 1 * (ABNORMAL) Comprehensive metabolic panel (02/06/2025 12:34 PM EDT) Glucose 86 70 - 99 mg/dL [facility] 1 Blood Urea Nitrogen (BUN) 14 8 - 27 mg/dL [facility] 1 Creatinine 1.26 0.76 - 1.27 mg/dL [facility] 1 eGFR 57(L) >59 mL/min/1. 73 [facility] 1 BUN/Creatinine Ratio 11 10 - 24 [facility] 1 Sodium 140 134 - 144 mmol/L [facility] 1 Potassium 4.6 3.5 - 5.2 mmol/L [facility] 1 Chloride 99 96 - 106 mmol/L [facility] 1 Carbon Dioxide 26 20 - 29 mmol/L [facility] 1 Calcium 8.4(L) 8.6 - 10.2 mg/dL [facility] 1 Protein Total 6.2 6.0 - 8.5 g/dL [facility] 1 Albumin 3.9 3.7 - 4.7 g/dL [facility] 1 Globulin Total 2.3 1.5 - 4.5 g/dL [facility] 1 Bilirubin Total 0.4 0.0 - 1.2 mg/dL [facility] 1 Alkaline Phosphatase 65 44 - 121 IU/L [facility] 1 Aspartate aminotransferase (AST) 11 0 - 40 IU/L [facility] 1 Alanine Aminotransferase (ALT) 12 0 - 44 IU/L [facility] 1 Blood Venous blood specimen / Unknown 02/06/2025 12:34 PM EDT 02/06/2025 Narrative [facility] 1 - 02/07/2025 4:06 AM EDT Performed at: [address] [id number] Decal Maker: Lexis Maher MD, Phone: [phone] us Christina LACEY LAB BLOOD ORDERABLES Final Resul t [facility] 1 * (ABNORMAL) Lipid panel with reflex to direct LDL (06/12/2024 10:52 AM EST) [facility] Cholesterol 256(H) 0 - 200 mg/dL LAB CHEMISTRY METHOD 06/12/2024 12:34 PM EST [facility] Triglycerides 171(H) 0 - 150 mg/dL LAB CHEMISTRY METHOD 06/12/2024 12:34 PM EST [facility] HDL 92 >=40 mg/dL LAB CHEMISTRY METHOD 06/12/2024 12:34 PM EST [facility] LDL Calculated 130(H) 0 - 100 mg/dL LAB CHEMISTRY METHOD 06/12/2024 12:34 PM EST [facility] VLDL Cholesterol Blade 34.2 mg/dL LAB CHEMISTRY METHOD 06/12/2024 12:34 PM EST [facility] Non HDL Chol. (LDL+VLDL) 164(H) <145 mg/dL LAB CHEMISTRY METHOD 06/12/2024 12:34 PM EST [facility] Chol/HDL Ratio 2.8 0.0 - 4.4 LAB CHEMISTRY METHOD 06/12/2024 12:34 PM [facility] Blood Venous blood specimen / Unknown Venipuncture / Unknown 06/12/2024 10:52 AM EST 06/12/2024 11:32 AM EST us Sarah Jhaveri MD LAB BLOOD ORDERABLES Final Resu lt [facility] [address] [place] [address], from Last 3 Months or Most Recently Relevant to Health Maintenance Insurance MEDICARE [facility] Care Teams Jet Mechanic Relationship Specialty Start Date End Date David Bryan MD [address] [place] [address] PCP - General Swat Team Member 09/25/14
--- OUTSIDE RECORDS SUMMARY | 2025-04-24 15:14 | XMS_ITS | Encounter Summary ---
Author Organization [facility] Address [address] [place] [address] Phone Care Team Providers Care Inside Sales Engineer Name Role Phone David Bryan MD Primary Care Provider [phone] Encounter Details Date Type Department Care Team (Late st Contact Info) Description 11/12/2020 Procedure Pass MRI, [facility] - [address], [address] [place] [id number] Social History Tobacco Use Types Packs/Day Years Used Date Smoking Tobacco: Never Smokeless Tobacco: Never Alcohol Use Standard Drinks/Week Comments No 0 (1 standard drink = 0.6 oz pur e alcohol) Sex and Gender Information Value Date Recorded Sex Assigned at Male 07/05/2019 12:31 AM EST Legal Sex Male 3:27 PM EDT Gender Identity Male 07/05/2019 12:31 AM EST Sexual Orientation Straight 07/05/2019 12 :32 AM EST documented as of this encounter Plan of Treatment Not on file documented as of this encounter Visit Diagnoses Not on filedocumented in this encounter Care Teams Inside Sales Engineer Relationship Specialty Start Date End Date David Bryan MD [address] [place] [address] [address] [place] [address] PCP - General Internal Medicine 11/03/20 documented as of this encounter Additional Source Comments The information contained in this document represents components of the legal health record. It is not the complete legal health record.[facility]
--- OUTSIDE RECORDS SUMMARY | 2025-04-24 15:14 | XMS_ITS | Encounter Summary ---
Author Organization [facility] Address [address] [facility] [address] [place] [address] Phone Care Team Providers Care Atomic Physics Professor Name Role Phone Raimundo Schreiber MD Primary Care Provider Unavailable David Bryan MD Primary Care Provider [phone] Encounter Details Date Type Department Care Team (Late st Contact Info) Description 12/26/2018 Procedure Pass MRI, [facility] - [address], [address] [place], [place] [id number] Social History Tobacco Use Types Packs/Day Years [...] on filedocumented in this encounter Care Teams Atomic Physics Professor Relationship Specialty Start Date End Date Raimundo Schreiber MD PCP - General Internal Medicine 10/27/16 11/02/20 David Bryan MD [address] [facility] [address] [place] [address] PCP - General Internal Medicine 11/03/20 documented as of this encounter Additional Source Comments The information contained in this document represents components of the legal health record. It is not the complete legal health record.[facility]
--- OUTSIDE RECORDS SUMMARY | 2025-04-24 15:14 | XMS_ITS | Patient Health Record ---
Author Organization [facility] Address [address] [place] [address] Care Team Providers Care Sustainable Communities Designer Name Role Phone Raimundo Schreiber MD Primary Care Provider Leslienery Leggett Tyesha Unavailable [phone] Allergies Allergen (clinical drug ingredient) Drug/Non Drug [...] Status W/U Status Risk Notes Problem Bursitis (13669172) Bursitis (727.3) Active confirmed Problem Hammer toe (893193843) Hammer toe (735.4) Active confirmed Problem Calcaneal spur (53826790) Calcaneal spur (726.73) Active confirmed Problem Myositis (49421723) Myositis (729.1) Active confirmed Problem Pain in limb (96683916) Pain in Limb (729.5) Active confirmed Problem Plantar fasciitis (503966756) Plantar Fasciitis (728.71) Active confirmed Problem Tibialis tendinitis (28483800) Posterior Tibial Tendonitis (726.72) Active confirmed Plan Of Treatment No Information Insurance Providers Payer Name Payer Address Payer Phone Subscriber Number Group Number Insured Name Patient Relationship to Insured Coverage Start Date Coverage End Date Medicare National [employer] [address] [place] [id number] Isai Ford Self - patient is the insured [facility] [address] [place] [address] [id number] Isai Ford Self - patient is the insured Medical (General) History Medical History History ICD Code Hypertension Chicken pox Measles Mumps Menieres disease Surgical History Surgery Date(Month/Year) cholecystectomy knee surgery
--- OUTSIDE RECORDS SUMMARY | 2025-04-24 15:14 | XMS_ITS | Clinical Summary ---
Author Organization [facility] Address [address] [facility] [address] [place] [address] Phone Care Team Providers Care Diabetes Trainer Name Role Phone David Bryan MD Primary Care Provider [phone] Allergies Active Allergy Reactions Criticality Noted Date Comments Cipro (Ciprofloxacin) 03/16/2017 Heart race Penicillins Hives 03/16/2017 Oxycodone-Acetaminophen 03/16/2017 hallucinations Medications hydroCHLOROthia zide (HYDRODIURIL) 12.5 MG tablet Take 12.5 mg by mouth daily. Active cholecalciferol (VITAMIN D3) 1,000 unit tablet Take 1,000 Units by mouth 2 (two) times a day. Active multivitamin per tablet Take 1 tablet by mouth daily. Active b complex vitamins capsule Take 1 capsule by mouth daily. Active ascorbic acid, vitamin C, (VITAMIN C) 1000 MG tablet Take 1,000 mg by mouth daily. Active lisinopril (PRINIVIL,ZESTR IL) 5 MG tablet Take 5 mg by mouth daily. Active apixaban (ELIQUIS) 5 mg tablet 1 Active ELIQUIS 5 mg tablet Take 5 mg by mouth 2 (two) times a day. 2 Active cetirizine (ZYRTEC) 10 MG tablet Take 10 mg by mouth daily. 2 Active dilTIAZem (CARDIZEM CD) 360 MG 24 hr capsule 5 Active TIADYLT ER 360 mg 24 hr capsule Take by mouth daily. 2 Active flecainide (TAMBOCOR) 100 MG tablet 1 Active flecainide (TAMBOCOR) 100 MG tablet Take 100 mg by mouth every 12 (twelve) hours. 2 Active montelukast (SINGULAIR) 10 mg tablet Take 10 mg by mouth. 1 Active montelukast (SINGULAIR) 10 mg tablet Take 10 mg by mouth every evening. 2 Active mycophenolate mofetil (CELLCEPT) 500 mg tablet Take 1,000 mg by mouth. 0 Active mycophenolate mofetil (CELLCEPT) 500 mg tablet 2 Active nintedanib (OFEV) 150 mg capsule Take 150 mg by mouth. 0 Active OFEV 150 mg capsule 2 Active predniSONE (DELTASONE) 10 MG tablet 0 Active predniSONE (DELTASONE) 10 MG tablet Take 10 mg by mouth daily. 2 Active tamsulosin (FLOMAX) 0.4 mg Cap Refills 0, Maintenance, 01/15/21 2:13:00 EDT, Partial fill upon patient request if the prescription is for a schedule II opioid drug. 1 Active tamsulosin (FLOMAX) 0.4 mg Cap Take 0.4 mg by mouth nightly at bedtime. 2 Active levothyroxine (SYNTHROID, LEVOTHROID) 50 MCG tablet Take 50 mcg by mouth daily. 2 Active rOPINIRole (REQUIP) 0.25 MG tabletIndicatio ns:Restless legs TAKE 1-2 TABS NIGHTLY FOR RESTLESS LEGS SYNDROME. 180 tablet 1 5 Active Active Problems Problem Noted Date Diagnosed Date Essential hypertension 03/16/2017 Acquired hypothyroidism 03/16/2017 Hypertension Family History Medical History Relation Comments Bipolar disorder Daughter Fibromyalgia Daughter Dementia Father Cerebral aneurysm Mother Muscle Disease Neg Hx Neuropathy Neg Hx Relation Status Comments Daughter Alive Father Mother Son Alive Social History Tobacco Use Types Packs/Day Years Used Date Smoking Tobacco: Never Smokeless Tobacco: Never Alcohol Use Standard Drinks/Week Comments No 0 (1 standard drink = 0.6 oz pur e alcohol) Education Answer Date Recorded Are you interested in more education? Not on tiffanie e 10/27/2022 Are you concerned about learning? Not on file 10/27/2022 No 10/27/2022 No 10/27/2022 Digital Access Answer Date Recorded No 11/27/2022 No 11/27/2022 No 11/27/2022 Reliable internet access at home? Not on file 11/27/2022 Device with a working camera? Not on file Sex and Gender Information Value Date Recorded Sex Assigned at Male 07/05/2019 12:31 AM EST Legal Sex Male 3:27 PM EDT Gender Identity Male 07/05/2019 12:31 AM EST Sexual Orientation Straight 07/05/2019 12 :32 AM EST Last Filed Vital Signs Vital Sign Reading Time Taken Comments Blood Pressure 123/65 12/23/2021 11:02 AM EDT Pulse 75 12/23/2021 11:02 AM EDT Temperature 36.9 C (98.5 F) 12/23/2021 11:02 AM EDT Respiratory Rate - - Oxygen Saturation 96% 12/23/2021 11:02 AM EDT Inhaled Oxygen Concentration - - Weight 116.1 kg (256 lb) 12/23/2021 11:02 AM EDT pt reported Height 188 cm (6' 2 ) 12/23/2021 11:02 AM EDT Body Mass Index 32.87 12/23/2021 11:02 AM EDT Plan of Treatment Health Maintenance Due Date Last Done Comments Adult Td,Tdap Booster 1940 BLOOD PRESSURE 1940 CREATININE LEVEL 1941 POTASSIUM LEVEL 1941 TSH LEVEL 1941 PNEUMOCOCCAL VACCINES (50+ y ears) (1 of 2 - PCV) 1960 ZOSTER VACCINES (1 of 2) 1959 RSV VACCINE (1 - 1-dose 75+ series) 2016 DEPRESSION SCREENING 01/23/2021 01/24/2020 COVID-19 VACCINE (2 - Modern a risk series) 03/19/2021 02/19/2021 INFLUENZA VACCINE (#1) 2025 HEPATITIS A VACCINES Aged Out No long er eligible based on patient's age to complete this topic HIB VACCINES Aged Out No longer eligi ble based on patient's age to complete this topic MENINGOCOCCAL VACCINES (ACWY) Aged Out No longer eligible based on patient's age to complete this topic MENINGOCOCCAL VACCINES (B) Aged Out N o longer eligible based on patient's age to complete this topic Medical Devices Not on file Insurance MEDICARE PART A & B [employer] MEDEX SUPPLEMENT MEDICARE PART A & B [employer]EX SUPPLEMENT MEDICARE PART A & B [employer] MEDEX SUPPLEMENT MEDICARE PART A & B [employer] MEDEX SUPPLEMENT MEDICARE PART A & B [employer] CROSS MEDEX SUPPLEMENT MEDICARE PART A & B [employer] SUPPLEMENT MEDICARE PART A & B [employer] SUPPLEMENT MEDICARE PART A & B [employer] MEDEX SUPPLEMENT MEDICARE PART A & B [employer] MEDEX SUPPLEMENT Care Teams Diabetes Trainer Relationship Specialty Start Date End Date David Bryan MD [address] [facility] [address] [place] [address] PCP - General Internal Medicine 11/03/20 Additional Source Comments The information contained in this document represents components of the legal health record. It is not the complete legal health record.[facility]
--- OUTSIDE RECORDS SUMMARY | 2025-04-24 15:14 | XMS_ITS | Encounter Summary ---
Author Organization [facility] Address [address] [facility] [address] [place] [address] Phone Care Team Providers Care English Horn Player Name Role Phone Raimundo Schreiber MD Primary Care Provider Unavailable David Bryan MD Primary Care Provider [phone] Reason for Referral * Consultation (Elective) - Closed Specialty Diagnoses / Procedures Referred By Joshua blanco Referred To Contact Neurology Diagnoses Encounter for consultation Raimundo Schreiber MD Referral ID Status Reason Start Date Expiration Date Visits Re quested Visits Authorized [id number] Closed 11/24/2016 11/24/2017 1 1 Encounter Details Date Type Department Care Team (Latest Contact Info) Description 11/24/2016 Transcribe Orders [facility] Department of [place]rology [address] [place] [address], [address], [address] [place] [address] Raimundo Schreiber MD Encounter for consultation (Primary Dx) Social History Tobacco Use Types Packs/Day Years Used Date Smoking Tobacco: Never Assessed Sex and Gender Information Value Date Recorded Sex Assigned at Male 07/05/2019 12:31 AM EST Legal Sex Male 3:27 PM EDT Gender Identity Male 07/05/2019 12:31 AM EST Sexual Orientation Straight 07/05/2019 12 :32 AM EST documented as of this encounter Plan of Treatment Scheduled Referrals Name Type Priority Associated Diagnoses Orde r Schedule Ambulatory referral to [facility] Outpatient Referral Routine Encounter for consultation Ordered: 11/24/2016 documented as of this encounter Visit Diagnoses Diagnosis Encounter for consultation- Primary documented in this encounter Care Teams English Horn Player Relationship Specialty Start Date End Date Raimundo Schreiber MD PCP - General Internal Medicine 10/27/16 11/02/20 David Bryan MD [address] [place] [address] PCP - General Internal Medicine 11/03/20 documented as of this encounter Additional Source Comments The information contained in this document represents components of the legal health record. It is not the complete legal health record.[facility]
--- OUTSIDE RECORDS SUMMARY | 2025-04-24 15:15 | XMS_ITS | Clinical Summary ---
Author Organization [facility] Address [address] [address] Care Team Providers Care Elevators Inspector Name Role Phone Unavailable Primary Care Provider [...] complete [place] [id number] Medicare [facility] [place] [id number] Medicare [facility]
== END 2025-04-24 14:20 | disposition home or self-care (01) ==
LOC: HO.HPS 13:14
PROVIDERS: PCP Internal Medicine; Visit Provider Hospitalist
DX: J44.1 Chronic obstructive pulmonary disease with (acute) exacerbation (principal); D84.821 Immunodeficiency due to drugs; T38.0X5A Adverse effect of glucocorticoids and synthetic analogues, initial encounter; Z79.52 Long term (current) use of systemic steroids; J84.112 Idiopathic pulmonary fibrosis; J96.11 Chronic respiratory failure with hypoxia; J84.9 Interstitial pulmonary disease, unspecified; G47.33 Obstructive sleep apnea (adult) (pediatric); G47.61 Periodic limb movement disorder; F51.01 Primary insomnia; M54.9 Dorsalgia, unspecified; G89.29 Other chronic pain; I48.0 Paroxysmal atrial fibrillation
CPT/HCPCS: 99214; G2211

== ENCOUNTER → 2025-04-24 13:14 | Outpatient (BNVA) | payer MEDICARE, SELFPAY | PROVIDERS: PCP Internal Medicine; Visit Provider Hospitalist | DX: J44.1 Chronic obstructive pulmonary disease with (acute) exacerbation (principal); D84.821 Immunodeficiency due to drugs; T38.0X5A Adverse effect of glucocorticoids and synthetic analogues, initial encounter; Z79.52 Long term (current) use of systemic steroids; J84.112 Idiopathic pulmonary fibrosis; J96.11 Chronic respiratory failure with hypoxia; J84.9 Interstitial pulmonary disease, unspecified; Z99.81 Dependence on supplemental oxygen | CPT/HCPCS: 99212 ==

== ENCOUNTER 2025-05-07 12:50 | Outpatient (REF) | payer MEDICARE, SELFPAY ==
[2025-05-07 13:18] LABS: MANUAL DIFF FLAG NO
[2025-05-07 13:20] LABS: Venous Blood Gas Refer to POC result
[2025-05-07 13:21] LABS: VBG HCO3 34 mmol/L (22-26); VBG O2 % Saturation 91.0 %
[2025-05-07 14:21] LABS: Hematocrit 35.6 % (42.0-52.0); Hemoglobin 11.1 g/dl (14.0-18.0); Imm Gran Abs Auto 0.04 X10*3/uL (0.00-0.03); Imm Gran Pct Auto 0.6 % (0.0-0.4); Lymphocytes Absolute Auto 0.7 X10*3/uL (1.2-4.9); Mean Corpuscular HGB Conc 31.2 g/dl (31.0-36.0); Mean Corpuscular Hemoglobin 30.9 pg (27.0-33.0); Mean Corpuscular Volume 99.2 fL (80.0-98.0); NRBC Abs Auto 0.000 X10*3/uL (0.0-0.012); NRBC Pct Auto 0.0 /100WBC (0.0-0.2); Platelet Count 152 X10*3/uL (160-400); Red Blood Count 3.59 X10*6/uL (4.60-5.80); White Blood Count 7.0 X10*3/uL (4.8-10.8)
[2025-05-07 14:49] LABS: Alanine Aminotransferase 12 U/L (0-40); Albumin Level 4.0 g/dL (3.5-5.0); Alkaline Phosphatase 60 U/L (39-117); Anion Gap 11 (12-20); Aspartate Amino Transferase 18 U/L (5-37); Blood Urea Nitrogen 14 mg/dL (9-16); Calcium 8.4 mg/dL (8.4-10.2); Carbon Dioxide 31 mmol/L (22-29); Chloride 102 mmol/L (96-108); Estimated Glomerular Filt Rate 55; Potassium 3.8 mmol/L (3.3-5.1); Sodium 140 mmol/L (135-145); Total Protein 6.5 g/dL (6.5-8.0)
[2025-05-07 14:55] LABS: NT Pro B Type Natriuretic Pept 262.4 pg/mL (<300)
--- OUTSIDE RECORDS SUMMARY | 2025-05-07 15:47 | XMS_ITS | Clinical Summary ---
Author Organization [address] [place] [address] [place] [address] [place] [address] Phone Care Team Providers Care Senior Qa Automation Engineer Name Role Phone David Bryan MD Primary Care Provider [phone] Allergies Active Allergy Reactions Criticality Noted Date [...] - Echocardiogram during May 2023 admission at [facility] in the midst of urosepsis [...] ECG 12 lead Compression of lumbar vertebra ([facility] V24, CMS /HCC V28) 06/08/2022 Overview (05/08/2024): [...] option. He will discuss things with his a operator next week to make sure he [...] 06/08/2022 Overview (05/08/2024): Palpitations Dilated aortic root ([facility] V24) 03/04/2021 Assessment & Plan (12/12/2024 11:12 [...] and was seen by Dr. Mckee at [facility] cardiology in August 2021 when flecainide was initiated - Cardioverted on flecainide with maintenance of sinus rhythm for almost a year - Admitted back to [facility] in July 2022 with A-fib with [...] course complicated by urosepsis and bacteremia requiring [facility] admission and FELIX on top of that - In the setting of septic shock, he went back into A-fib with RVR-was subsequently cardioverted again on 05/29/2023 and has remained in sinus rhythm ever since Last Assessment & Plan: Status post Watchman procedure. He will be due for his 45-day ANYA at [facility] in a couple months. He [...] PM EDT Office Visit Orthopedic Surgery - [address] [address] Fareed Posadas M, DPM Tinea pedis of both feet (Primary Dx); Dermatophytosis of nail; Pain in toe of right foot; Pain in toe of left foot; Difficulty walking [R26.2]; Neuritis from Last 3 Months Medical History Medical [...] (HCC) COPD (chronic obstructive pu lmonary disease) (CMS/HCC V24, [facility] V28) DX:COPD (chronic o bstructive pulmonary disease) ([facility]) Fracture of lumbar spine wit hout spinal cord lesion ([facility] V24, [facility] V28) DX:Fracture of lumbar spine without spinal cord lesion ([facility]) Family History Medical History Relation Name Comments [...] PM EST Office Visit Orthopedic Surgery - [place] [address] [address] Fareed Posadas DPM [address] [address] Health Maintenance Due Date Last Done Comments DTaP,Tdap,and Td Vaccines (1 - Tdap) 1959 Zoster Vaccines (1 of 2) 1959 RSV Immunization Adult Patients (1 - 1-dose 75+ series) 2016 Falls Risk Assessment 06/10/2022 Medicare Annual Wellness Visit 06/10/2022 Social Influencers of Health Screening 06/10/2022 Depression Screening 07/02/2024 COVID-19 Vaccine ( season) 2025 02/19/2021, 08/30/2020, 07/30/2020 Influenza Vaccine (#1) 2025 3, 03/23/2021, 05/18/2020 Hypertension/CHF/CAD Annual BMP Blood [...] - 02/07/2025 5:06 AM EDT Performed at: [facility] [id number] Tobacco Primer Machine Operator: Lexis Maher MD, Phone: [phone] us Christina LACEY LAB BLOOD ORDERABLES Final [...] 02/07/2025 4:06 AM EDT Performed at: 01 - [address] [id number] Tobacco Primer Machine Operator: Lexis Maher MD, Phone: [phone] us Christina LACEY LAB BLOOD ORDERABLES Final Resul t [facility] 1 * (ABNORMAL) Lipid panel with reflex to direct LDL (06/12/2024 10:52 AM EST) Cholesterol 256(H) 0 - 200 mg/dL LAB CHEMISTRY METHOD 06/12/2024 12:34 PM [facility] Triglycerides 171(H) 0 - 150 mg/dL LAB CHEMISTRY METHOD 06/12/2024 12:34 PM [facility] HDL 92 >=40 mg/dL LAB CHEMISTRY METHOD 06/12/2024 12:34 PM [facility] LDL Calculated 130(H) 0 - 100 mg/dL LAB CHEMISTRY METHOD 06/12/2024 12:34 PM [facility] VLDL Cholesterol Blade 34.2 mg/dL LAB CHEMISTRY METHOD 06/12/2024 12:34 PM [facility] Non HDL Chol. (LDL+VLDL) 164(H) <145 mg/dL LAB CHEMISTRY METHOD 06/12/2024 12:34 PM [facility] Chol/HDL Ratio 2.8 0.0 - 4.4 LAB CHEMISTRY METHOD 06/12/2024 12:34 PM EST [facility] Blood Venous blood specimen / Unknown Venipuncture / Unknown 06/12/2024 10:52 AM EST 06/12/2024 11:32 AM EST us Sarah Jhaveri MD LAB BLOOD ORDERABLES Final Resu lt [facility] [address] [place] [address], from Last 3 Months or Most Recently Relevant to Health Maintenance Insurance MEDICARE [facility] Care Teams Senior Qa Automation Engineer Relationship Specialty Start Date End Date David Bryan MD [address] [place] [address] PCP - General Gas Usage Meter Clerk 09/25/14
--- OUTSIDE RECORDS SUMMARY | 2025-05-07 15:48 | XMS_ITS | Encounter Summary ---
Author Organization [facility] Address [address] [place] [address] Phone Care Team Providers Care Cutting Machine Tender Decorative Name Role Phone Raimundo Schreiber MD Primary Care Provider Unavailable David Bryan MD Primary Care Provider [phone] Encounter Details Date Type Department Care Team (Late st Contact Info) Description 12/26/2018 Procedure Pass MRI, [facility] - [address], [address] [place], [place] [id number] Social History Tobacco Use Types Packs/Day Years [...] on filedocumented in this encounter Care Teams Cutting Machine Tender Decorative Relationship Specialty Start Date End Date Raimundo Schreiber MD PCP - General Internal Medicine 10/27/16 11/02/20 David Bryan MD [address] [facility] [address] [place] [address] PCP - General Internal Medicine 11/03/20 documented as of this encounter Additional Source Comments The information contained in this document represents components of the legal health record. It is not the complete legal health record.[facility]
--- OUTSIDE RECORDS SUMMARY | 2025-05-07 15:48 | XMS_ITS | Encounter Summary ---
Author Organization [facility] Address [address] [facility] [address] [place] [address] Phone Care Team Providers Care Unit Manager [employer] Name Role Phone Raimundo Schreiber MD Primary Care Provider Unavailable David Bryan MD Primary Care Provider [phone] Reason for Referral * Consultation (Elective) - Closed Specialty Diagnoses / Procedures Referred By Joshua blanco Referred To Contact Neurology Diagnoses Encounter for consultation Raimundo Schreiber MD Referral ID Status Reason Start Date Expiration Date Visits Re quested Visits Authorized [id number] Closed 11/24/2016 11/24/2017 1 1 Encounter Details Date Type Department Care Team (Latest Contact Info) Description 11/24/2016 Transcribe Orders [facility] Department of Neurology [address] [place] [address], [address] Floor, [address] [place] [address] Raimundo Schreiber MD Encounter for consultation (Primary [...] Diagnoses Orde r Schedule Ambulatory referral to [facility] Outpatient Referral Routine Encounter for consultation Ordered: 11/24/2016 documented as of this encounter Visit Diagnoses Diagnosis Encounter for consultation- Primary documented in this encounter Care Teams Unit Manager [employer] Relationship Specialty Start Date End Date Raimundo Schreiber MD PCP - General Internal Medicine 10/27/16 11/02/20 David Bryan MD [address] [place] [address] PCP - General Internal Medicine 11/03/20 documented as of this encounter Additional Source Comments The information contained in this document represents components of the legal health record. It is not the complete legal health record.[facility]
--- OUTSIDE RECORDS SUMMARY | 2025-05-07 15:48 | XMS_ITS | Clinical Summary ---
Author Organization [facility] Address [address] [place] [address] Care Team Providers Care Hot Plate Press Operator Name Role Phone David Bryan MD Primary Care Provider [phone] Allergies Active Allergy Reactions Criticality Noted Date [...] age to complete this topic Care Teams Hot Plate Press Operator Relationship Specialty Start Date End Date David Bryan MD [address] [place] [id number] PCP - General Lamp Shade Joiner 01/03/20
--- OUTSIDE RECORDS SUMMARY | 2025-05-07 15:48 | XMS_ITS | Clinical Summary ---
Author Organization [facility] Address [address] [facility] [address] [place] [address] Phone Care Team Providers Care Group Segment Consultant Name Role Phone David Bryan MD Primary Care Provider [phone] Allergies Active Allergy Reactions Criticality Noted Date [...] file Insurance MEDICARE PART A & B [employer] MEDEX SUPPLEMENT MEDICARE PART A & B [employer] MEDEX SUPPLEMENT MEDICARE PART A & B [employer] MEDEX SUPPLEMENT MEDICARE PART A & B BLUE [employer] MEDEX SUPPLEMENT MEDICARE PART A & B [employer] CROSS MEDEX SUPPLEMENT MEDICARE PART A & B BLUE CROSS MEDEX SUPPLEMENT MEDICARE PART A & B BLUE [employer]OSS MEDEX SUPPLEMENT MEDICARE PART A & B [employer] MEDEX SUPPLEMENT MEDICARE PART A & B [employer] MEDEX SUPPLEMENT Care Teams Group Segment Consultant Relationship Specialty Start Date End Date David Bryan MD [address] [facility] [address] [place] [address] PCP - General Internal Medicine 11/03/20 Additional Source Comments The information contained in this document represents components of the legal health record. It is not the complete legal health record.[facility]
--- OUTSIDE RECORDS SUMMARY | 2025-05-07 15:49 | XMS_ITS | Patient Health Record ---
Author Organization [facility] Address [address] [place] [address] Care Team Providers Care Acid Purification Equipment Operator Name Role Phone Raimundo Schreiber MD Primary Care Provider Leslienery Leggett Tyesha Unavailable [phone] Allergies Allergen (clinical drug ingredient) Drug/Non Drug [...] Status W/U Status Risk Notes Problem Bursitis (11091480) Bursitis (727.3) Active confirmed Problem Hammer toe (581817527) Hammer toe (735.4) Active confirmed Problem Calcaneal spur (33902299) Calcaneal spur (726.73) Active confirmed Problem Myositis (19179448) Myositis (729.1) Active confirmed Problem Pain in limb (52276776) Pain in Limb (729.5) Active confirmed Problem Plantar fasciitis (000256491) Plantar Fasciitis (728.71) Active confirmed Problem Tibialis tendinitis (92519824) Posterior Tibial Tendonitis (726.72) Active confirmed Plan Of Treatment No Information Insurance Providers Payer Name Payer Address Payer Phone Subscriber Number Group Number Insured Name Patient Relationship to Insured Coverage Start Date Coverage End Date Medicare National [employer] [address] [place] [id number] [id number] Isai Ford Self - patient is the insured [employer] [facility] [address] [place] [address] [phone] [id number] Isai Ford Self - patient is the insured Medical (General) History Medical History History ICD Code Hypertension Chicken pox Measles Mumps Menieres disease Surgical History Surgery Date(Month/Year) cholecystectomy knee surgery
--- OUTSIDE RECORDS SUMMARY | 2025-05-07 15:49 | XMS_ITS | Clinical Summary ---
Author Organization [facility] Address [address] [address] Care Team Providers Care Jacquard Loom [place] Name Role Phone Unavailable Primary Care Provider [...] complete [place] [id number] Medicare [facility] [place] [id number] Medicare [facility]
--- OUTSIDE RECORDS SUMMARY | 2025-05-07 15:49 | XMS_ITS | Encounter Summary ---
Author Organization [facility] Address [address] [place] [address] Phone Care Team Providers Care Blast Furnace Auxiliaries Supervisor Name Role Phone David Bryan MD Primary Care Provider [phone] Encounter Details Date Type Department Care Team (Late st Contact Info) Description 11/12/2020 Procedure Pass MRI, [facility] - [address], [address] [place] [id number] Social History Tobacco Use Types Packs/Day Years [...] on filedocumented in this encounter Care Teams Blast Furnace Auxiliaries Supervisor Relationship Specialty Start Date End Date David Bryan MD [address] [place] [address] [address] [place] [address] PCP - General Internal Medicine 11/03/20 documented as of this encounter Additional Source Comments The information contained in this document represents components of the legal health record. It is not the complete legal health record.[facility]
== END 2025-05-07 12:51 | disposition home or self-care (01) ==
LOC: HO.LAB 12:50
PROVIDERS: Absent Provider Physician Assistant; PCP Internal Medicine; Visit Provider Hospitalist
DX: I11.0 Hypertensive heart disease with heart failure (principal); I50.31 Acute diastolic (congestive) heart failure; I48.0 Paroxysmal atrial fibrillation; I42.9 Cardiomyopathy, unspecified; J84.112 Idiopathic pulmonary fibrosis; J96.11 Chronic respiratory failure with hypoxia; J44.1 Chronic obstructive pulmonary disease with (acute) exacerbation; Z92.29 Personal history of other drug therapy
CPT/HCPCS: 36415; 80048; 80076; 82533; 82803; 83880; 85025; 85652